=== PATIENT | female | born 1970 | race Caucasian/White ===

== ENCOUNTER 2016-03-11 15:52 | Emergency (ER) | payer OTHER ==
[2016-03-11 16:08] VITALS: BP 161/64; PULSE 83; O2SAT 97
--- NOTE | 2016-03-11 16:20 | ERPHSYRPT ---
- History of Present Illness Time Seen by Provider: 03/11/16 16:15 Source: patient Patient Subjective Stated Complaint: pain and redness to left eye since sat. denies foreign body or trauma Triage Nursing Assessment: ambulated to room. skin w/d, color normal, resp easy. left eye reddened, slight swelling noted. no drainage noted at present time. Physician History: The patient is a 44-year-old female with her complaining of increased tenderness swelling and redness of the inner aspect of her left lower eyelid for 4 days. She has placed warm compresses on it periodically without any relief. She denies any trauma to the eye. Vision is normal. Timing/Duration: day(s) (4) Location: left eye Severity: moderate Apparent Injury: no Associated Symptoms: pain Visual Assistive Devices: None Allergies/Adverse Reactions: No Known Drug Allergies Allergy (Verified 03/11/16 16:04) Home Medications: Fluoxetine HCl [Prozac] 20 mg PO DAILY 03/11/16 [History] Oxycodone HCl/Acetaminophen [Percocet 10-325 mg Tablet] 1 each PO Q4-6HPRN PRN 03/11/16 [History] Hx Tetanus, Diphtheria Vaccination/Date Given: No Hx Influenza Vaccination/Date Given: No Hx Pneumococcal Vaccination/Date Given: Yes (2010) - Review of Systems Constitutional: No Fever, No Chills Eyes: Other (eye lid pain) Ears, Nose, & Throat: No Symptoms Respiratory: No Cough, No Dyspnea Cardiac: No Chest Pain, No Edema, No Syncope Abdominal/Gastrointestinal: No Abdominal Pain, No Nausea, No Vomiting, No Diarrhea Genitourinary Symptoms: No Dysuria Musculoskeletal: No Back Pain, No Neck Pain Skin: No Rash Neurological: No Dizziness, No Focal Weakness, No Sensory Changes Psychological: No Symptoms Endocrine: No Symptoms Hematologic/Lymphatic: No Symptoms Immunological/Allergic: No Symptoms All Other Systems: Reviewed and Negative - Past Medical History Pertinent Past Medical History: Yes Neurological History: Migraines ENT History: No Pertinent History Cardiac History: No Pertinent History Respiratory History: Asthma Endocrine Medical History: No Pertinent History Musculoskeletal History: Fractures GI Medical History: Colitis, Diverticulitis, Gallbladder Disease History: No Pertinent History Psycho-Social History: No Pertinent History Female Reproductive Disorders: Endometriosis, Other Other Medical History: Fx Left foot. Hysterectomy 2008 for abnormal periods et. cysts. - Past Surgical History Past Surgical History: Yes Neuro Surgical History: No Pertinent History Cardiac: No Pertinent History Respiratory: No Pertinent History Gastrointestinal: Appendectomy, Cholecystectomy Genitourinary: Other Musculoskeletal: Orthopedic Surgery Female Surgical History: Hysterectomy Other Surgical History: Stent for kidney stone 7 years ago. LEFT KNEE SURGERY - Social History Smoking Status: Current every day smoker How long have you smoked: 28 years Exposure to second hand smoke: No Drug Use: none Patient Lives Alone: No - Female History Hx Now: No - Nursing Vital Signs Nursing Vital Signs: Initial Vital Signs Temperature 98.9 F Temperature Source Oral Pulse Rate 83 Respiratory Rate 16 Blood Pressure 161/64 Pain Intensity 9 - Physical Exam General Appearance: no apparent distress Vision Acuity Degree Evaluation Phase: Uncorrected Vision Acuity Right Eye: 20/30 Vision Acuity Left Eye: 20/50 Eye Exam: left eye: stye (left lower eye lid) Ears, Nose, Throat Exam: normal ENT inspection Neck Exam: normal inspection Respiratory Exam: normal breath sounds Cardiovascular Exam: regular rate/rhythm Gastrointestinal Exam: soft Extremity Exam: normal inspection Neurologic: alert Skin Exam: normal color SpO2 Interpretation: normal SpO2: 97 Oxygen Delivery: Room Air - Progress Progress: unchanged - Departure Time of Disposition: 16:26 Departure Disposition: Home Clinical Impression: Hordeolum Condition: Stable Critical Care Time: No Additional Instructions: Apply warm compress on and off to left eye for 15 min 4 times a day. The pain from the stye or hordeolum will resolve. If swelling persists, please follow up with an eye doctor. Tylenol and ibuprofen as needed.
== END 2016-03-11 16:35 | disposition home or self-care (01) ==
LOC: ED 15:52
DX: H00.015 Hordeolum externum left lower eyelid (principal)
CPT/HCPCS: 99282

== ENCOUNTER 2016-03-28 09:56 | Day surgery (SDC) | payer OTHER ==
[~2016-03-28 09:56] MED LIST: DIPRIVAN 200 MG/20 ML IV ONE; Kenalog-40 IM ONE; Sensorcaine 0.25% 10 ML IJ ONE
[2016-03-28] MEDS ORDERED: Lactated Ringers 1,000 ML IV ONE (11:24)
[2016-03-28] MEDS ORDERED: Lactated Ringers 1,000 ML IV SCH (11:30)
[2016-03-28 12:01] VITALS: BP 121/73; PULSE 65; O2SAT 99
--- NOTE | 2016-03-28 14:29 | XRAY ---
Indication: Right L2-L5 MBB. Intraoperative fluoroscopy was provided for 9 seconds. Single frontal digital spot image of the lower lumbar spine submitted for interpretation demonstrates posterior spinal needles with the tips projecting over the expected course of the right L2-L5 nerve roots. Correlate with intraoperative findings/report.
--- NOTE | 2016-03-28 16:42 | XRAY ---
9 seconds fluoroscopy time in surgery for right MBB L2-5.
== END 2016-03-28 12:30 | disposition home or self-care (01) ==
LOC: SDC-PAIN 09:56
PROVIDERS: ATTEND Pain Medicine Interventional Pain Medicine
DX: M47.816 Spondylosis without myelopathy or radiculopathy, lumbar region (principal); M54.5 Low back pain; M25.561 Pain in right knee
CPT/HCPCS: 64493; 64494; 72020; 77003; J2704; J3301

== ENCOUNTER 2016-04-11 15:29 | Emergency (ER) | payer OTHER ==
--- NOTE | 2016-04-11 16:44 | XRAY ---
Indication: Fever and cough. Comparison: November 24, 2012. Portable chest remains clear. Heart is not enlarged. Vascularity normal. Bony thorax intact. Impression: Stable nonacute chest.
[2016-04-11 16:53] VITALS: PULSE 66
[2016-04-11] MEDS ORDERED: Sodium Chloride 0.9% 1000 ML 1,000 ML IV STA (17:03)
--- NOTE | 2016-04-11 17:03 | ERPHSYRPT ---
- History of Present Illness Source: patient, family () Patient Subjective Stated Complaint: PT STATES SHE HAS HAD A COUGH X 1 WEEK STATES SHE HAS NO. ENERY AND GETS DIZZY WHEN SHE AMBULATES. PT DENIES FEVER. Triage Nursing Assessment: PT ALERT WARM AND DRY RESP EASY NON LABORED LUNG SOUND CLEAR AND EQUAL BILATERALLY. Physician History: Patient will make a history of cough congestion some intermittent dizziness sore throat. Cough is nonproductive has had intermittent chills and fever weakness and headache. Has not sought medical care until now. 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 Allergies/Adverse Reactions: No Known Drug Allergies Allergy (Verified 03/28/16 12:03) Home Medications: Fluoxetine HCl [Prozac] 40 mg PO DAILY 03/11/16 [History] Oxycodone HCl/Acetaminophen [Percocet 10-325 mg Tablet] 1 each PO Q4-6HPRN PRN 03/11/16 [History] Trazodone HCl 100 mg PO HS 03/28/16 [History] Cyclobenzaprine HCl [Flexeril] 10 mg PO TID PRN PRN 04/03/16 [History] Hx Tetanus, Diphtheria Vaccination/Date Given: No (UNKNOWN) Hx Influenza Vaccination/Date Given: No Hx Pneumococcal Vaccination/Date Given: No Immunizations Up to Date: Yes - Review of Systems Constitutional: Chills, Fatigue, Lethargy, Malaise, Weakness Eyes: No Symptoms Ears, Nose, & Throat: Nose Pain, Nose Congestion, Throat Pain Respiratory: Cough, No Cyanosis, No Dyspnea, No Dyspnea on Exertion (MOSS), No Wheezing Cardiac: No Chest Pain, No Edema Abdominal/Gastrointestinal: No Symptoms Genitourinary Symptoms: No Symptoms Musculoskeletal: Myalgias Skin: No Symptoms Neurological: No Symptoms Psychological: No Symptoms, Memory Loss Hematologic/Lymphatic: No Symptoms Immunological/Allergic: No Symptoms All Other Systems: Reviewed and Negative - Past Medical History Pertinent Past Medical History: Yes Neurological History: Migraines ENT History: No Pertinent History Cardiac History: No Pertinent History Respiratory History: Asthma Endocrine Medical History: No Pertinent History Musculoskeletal History: Fractures GI Medical History: Colitis, Diverticulitis, Gallbladder Disease History: No Pertinent History Psycho-Social History: No Pertinent History Female Reproductive Disorders: Endometriosis, Other Other Medical History: Fx Left foot. Hysterectomy 2008 for abnormal periods et. cysts. - Past Surgical History Past Surgical History: Yes Neuro Surgical History: No Pertinent History Cardiac: No Pertinent History Respiratory: No Pertinent History Gastrointestinal: Appendectomy, Cholecystectomy Genitourinary: Other Musculoskeletal: Orthopedic Surgery Female Surgical History: Hysterectomy Other Surgical History: Stent for kidney stone 7 years ago. LEFT KNEE SURGERY - Social History Smoking Status: Current every day smoker How long have you smoked: 15 YEARS Exposure to second hand smoke: Yes Drug Use: none Patient Lives Alone: No - Female History Hx Last Menstrual Period: HYSTERECTOMY Hx Now: No - Nursing Vital Signs Nursing Vital Signs: Initial Vital Signs Temperature 98.5 F Temperature Source Oral Pulse Rate 66 Respiratory Rate 14 Blood Pressure [Right Arm] 118/74 Pain Intensity 9 - Physical Exam General Appearance: mild distress, alert, anxiety Eye Exam: PERRL/EOMI Ears, Nose, Throat Exam: pharyngeal erythema, other (NASAL MUCOSAL EDEMA, TENDERNESS OVER FRONTAL AND MAXILLARY SINUS AREAS) Neck Exam: normal inspection, non-tender, supple, full range of motion, No lymphadenopathy Respiratory Exam: normal breath sounds, lungs clear, No chest tenderness Cardiovascular Exam: regular rate/rhythm, normal heart sounds, normal peripheral pulses, capillary refill <2 sec Gastrointestinal/Abdomen Exam: soft, normal bowel sounds, No tenderness Pelvic Exam: not done Rectal Exam: deferred Back Exam: normal inspection, normal range of motion, No CVA tenderness Extremity Exam: normal inspection Neurologic Exam: alert, oriented x 3, cooperative Skin Exam: normal color, warm, dry, rash Lymphatic Exam: No adenopathy SpO2 Interpretation: normal SpO2: 96 Oxygen Delivery: Room Air - Radiology Exams Chest X-ray Interpretation: Reviewed by me, Discussed w/ radiologist, Negative Ordered Tests: Active Orders 24 hr Category Date Time Status IV Insertion STAT Care 04/11/16 17:03 Active CHEST 1 VIEW (PORTABLE) Stat Exams 04/11/16 15:51 Completed CULTURE, THROAT Stat Lab 04/11/16 15:54 Received STREP SCREEN-BETA A Stat Lab 04/11/16 15:54 Completed Medication Summary Discontinued Medications Generic Name Dose Route Start Last Admin Trade Name Freq PRN Reason Stop Dose Admin Dexamethasone Sodium Phosphate 10 mg 04/11/16 17:37 04/11/16 17:53 Decadron 10mg Inj. IM 04/11/16 17:38 10 mg STAT ONE Administration Dexamethasone Sodium Phosphate Confirm 04/11/16 17:48 Decadron 10mg Inj. Administered 04/11/16 17:49 Dose 10 mg .ROUTE .STK-MED ONE Sodium Chloride 1,000 mls @ 999 mls/hr 04/11/16 17:03 04/11/16 17:53 Sodium Chloride 0.9% 1000 Ml IV 04/11/16 18:03 Not Given .Q1H1M STA Sodium Chloride Confirm 04/11/16 17:09 Sodium Chloride 0.9% 1000 Ml Administered 04/11/16 17:10 Dose 1,000 mls @ ud .ROUTE .STK-MED ONE Sodium Chloride Confirm 04/11/16 17:48 Sodium Chloride 0.9% 1000 Ml Administered 04/11/16 17:49 Dose 1,000 mls @ ud .ROUTE .STK-MED ONE Lab/Rad Data: Laboratory Results 04/11/16 04/11/16 Range/Units 15:54 15:54 Streptococcus Screen NEGATIVE (Negative) Resp Infection Panel NEGATIVE (Negative) - Progress Progress: re-examined, unchanged Air Movement: good Progress Note: 04/11/16 20:31Patient with upper respiratory tract infection viral syndrome and sinusitis. Treated with Z-Don and recommendations for Mucinex DM rest fluids ibuprofen Tylenol no work for 2 days and follow-up with medical provider if not significantly improved. Negative fluids and respiratory screen. Blood Culture(s) Obtained: No Antibiotics given: No Counseled pt/family regarding: lab results, diagnosis, need for follow-up, rad results - Departure Time of Disposition: 17:39 Departure Disposition: Home Clinical Impression: Viral syndrome, Viral upper respiratory tract infection Sinusitis Qualifiers: Sinusitis location: pansinusitis Chronicity: acute Recurrence: non-recurrent Qualified Code(s): J01.40 - Acute pansinusitis, unspecified Condition: Stable Critical Care Time: No Referrals: ALFREDO CHACON MD [Primary Care Provider] - 04/13/16 Instructions: Cough -- Adult, Viral Upper Respiratory Infection -- Adult, Sinusitis Additional Instructions: Next 36 hours rest as much as possible with no strenuous activity. Forced oral fluids such as Powerade or Gatorade, popsicles Jell-O slush chicken soup and use ibuprofen which is Motrin and Tylenol for discomfort. Recommend switch to Mucinex DM as cough medicine. Also [id number] Zyrtec 10 mg once a day for nasal congestion. No work today or tomorrow if not significantly improved follow-up with medical provider on Saturday. Start antibiotic prescription at once. Prescriptions: Azithromycin [Azithromycin 250 mg Pack] 250 mg PO UD #6 tablet
[2016-04-11] MEDS ORDERED: Sodium Chloride 0.9% 1000 ML 1,000 ML ONE (17:09)
[2016-04-11] MEDS ORDERED: DECADRON 10MG INJ. IM ONE (17:37)
[2016-04-11] MEDS ORDERED: DECADRON 10MG INJ. ONE (17:48)
[2016-04-11] MEDS ORDERED: Sodium Chloride 0.9% 1000 ML 0 ML ONE (17:48)
[2016-04-11 18:06] VITALS: BP 118/74
[2016-04-11 20:28] VITALS: O2SAT 96
== END 2016-04-11 18:24 | disposition home or self-care (01) ==
LOC: ED 15:29
DX: J01.40 Acute pansinusitis, unspecified (principal); B34.9 Viral infection, unspecified; J06.9 Acute upper respiratory infection, unspecified; J32.9 Chronic sinusitis, unspecified
CPT/HCPCS: 71010; 87070; 87430; 87631; 96372; 99283; 99284; J1100

== ENCOUNTER 2016-08-01 14:00 | Day surgery (SDC) | payer OTHER ==
[~2016-08-01 14:00] MED LIST changes: +Lactated Ringers 1,000 ML IV ONE
--- NOTE | 2016-08-01 17:20 | XRAY ---
8 seconds fluoroscopy time in surgery for right side L2-5 MBB.
--- NOTE | 2016-08-03 02:52 | XRAY ---
Indication: Right L2-L5 MBB. Intraoperative fluoroscopy was provided for 8 seconds. Single digital spot image submitted for interpretation demonstrates posterior spinal needles with the tips projected over the expected course of the right L2-L5 nerve roots. Correlate with intraoperative findings/report.
== END 2016-08-01 15:45 | disposition home or self-care (01) ==
LOC: SDC-PAIN 14:00
PROVIDERS: ATTEND Pain Medicine Interventional Pain Medicine
DX: M47.816 Spondylosis without myelopathy or radiculopathy, lumbar region (principal); M54.5 Low back pain; M25.561 Pain in right knee; Z79.891 Long term (current) use of opiate analgesic
CPT/HCPCS: 64493; 64494; 64495; 72020; 77003; J2704; J3301

== ENCOUNTER 2016-09-12 12:18 | Emergency (ER) | payer OTHER ==
[2016-09-12] MEDS ORDERED: Sodium Chloride 0.9% 1000 ML 1,000 ML IV STA ×3 (12:33→14:52)
[2016-09-12] MEDS ORDERED: ANTIVERT 25 MG PO ONE (12:33)
[2016-09-12] MEDS ORDERED: Zofran 4 MG/2 ML VIAL IV ONE (12:49)
[2016-09-12] MEDS ORDERED: Zofran 4 MG/2 ML VIAL ONE (12:50)
[2016-09-12] MEDS ORDERED: Sodium Chloride 0.9% 1000 ML 1,000 ML ONE ×2 (12:51→14:48)
[2016-09-12] MEDS ORDERED: ANTIVERT 25 MG ONE (12:51)
--- NOTE | 2016-09-12 12:55 | ERPHSYRPT ---
- History of Present Illness Time Seen by Provider: 09/12/16 12:45 Source: patient Patient Subjective Stated Complaint: PT REPORTS FELLING VERY DIZZY BEGINNING THIS AM-DENIES FEVER-REPORTS SINUS PROBLEMS FOR GARRETT 1 WK-DENIES N/V-DENIES NUMBNESS OR TINLGING Triage Nursing Assessment: PT PINK WARM ET [id number] EASY ET NONLABORED- REPROTS SINUS DRAINAGE OF NASTY LOOKING YELLOW Physician History: PATIENT COMPLAINS OF PRODUCTIVE COUGH YELLOW SPUTUM ASSOCIATED WITH DIZZINESS TODAY. HAS SINUS PRESSURE, DENIES NASAL DRAINAGE, SORETHROAT, FEVER OR CHILLS. Timing/Duration: day(s) Cough Quality/Degree: moderate, productive cough Possible Cause: occasional episodes Modifying Factors: Improves With: coughing Associated Symptoms: lightheadedness International travel in last 2 weeks: No Allergies/Adverse Reactions: No Known Drug Allergies Allergy (Verified 09/12/16 12:33) Home Medications: Fluoxetine HCl [Prozac] 40 mg PO DAILY 03/11/16 [History] Oxycodone HCl/Acetaminophen [Percocet 10-325 mg Tablet] 1 each PO Q4-6HPRN PRN 03/11/16 [History] Trazodone HCl 100 mg PO HS 03/28/16 [History] Hx Tetanus, Diphtheria Vaccination/Date Given: No Hx Influenza Vaccination/Date Given: No Hx Pneumococcal Vaccination/Date Given: No Immunizations Up to Date: Yes - Review of Systems Constitutional: No Symptoms, No Fever, No Chills Eyes: No Symptoms Ears, Nose, & Throat: No Symptoms Respiratory: No Cough, No Dyspnea Cardiac: No Symptoms, No Chest Pain, No Edema, No Syncope Abdominal/Gastrointestinal: No Symptoms, No Abdominal Pain, No Nausea, No Vomiting, No Diarrhea Genitourinary Symptoms: No Symptoms, No Dysuria Musculoskeletal: No Symptoms, No Back Pain, No Neck Pain Skin: No Rash Neurological: Other (LIGHTHEADEDNESS), No Dizziness, No Focal Weakness, No Sensory Changes Psychological: No Symptoms Endocrine: No Symptoms All Other Systems: Reviewed and Negative - Past Medical History Pertinent Past Medical History: Yes Neurological History: Migraines ENT History: No Pertinent History Cardiac History: No Pertinent History Respiratory History: Asthma Endocrine Medical History: No Pertinent History Musculoskeletal History: Fractures GI Medical History: Colitis, Diverticulitis, Gallbladder Disease History: No Pertinent History Psycho-Social History: No Pertinent History Female Reproductive Disorders: Endometriosis, Other Other Medical History: Fx Left foot. Hysterectomy 2009 for abnormal periods et. cysts. - Past Surgical History Past Surgical History: Yes Neuro Surgical History: No Pertinent History Cardiac: No Pertinent History Respiratory: No Pertinent History Gastrointestinal: Appendectomy, Cholecystectomy Genitourinary: Other Musculoskeletal: Orthopedic Surgery Female Surgical History: Hysterectomy Other Surgical History: Stent for kidney stone 7 years ago. LEFT KNEE SURGERY - Social History Smoking Status: Current every day smoker How long have you smoked: 15 YEARS Exposure to second hand smoke: Yes Drug Use: none Patient Lives Alone: No - Female History Hx Now: No - Nursing Vital Signs Nursing Vital Signs: Initial Vital Signs Temperature 97.8 F Temperature Source Oral Pulse Rate 68 Respiratory Rate 18 Blood Pressure [] 133/75 Pain Intensity 2 - Physical Exam General Appearance: no apparent distress, alert Eye Exam: PERRL/EOMI, eyes nml inspection Ears, Nose, Throat Exam: normal ENT inspection, TMs normal, pharynx normal, moist mucous membranes, other (MULTIPE BUCCAL MUCOSA CANKER SORES) Neck Exam: normal inspection, non-tender, supple, full range of motion Respiratory Exam: normal breath sounds, lungs clear, No respiratory distress Cardiovascular Exam: regular rate/rhythm, normal heart sounds Gastrointestinal/Abdomen Exam: soft, normal bowel sounds (NONTENDER), No tenderness Back Exam: normal inspection, No CVA tenderness, No vertebral tenderness Extremity Exam: normal inspection, normal range of motion Neurologic Exam: alert, oriented x 3, cooperative, normal mood/affect, sensation nml, No motor deficits Skin Exam: normal color, warm, dry, No rash Lymphatic Exam: No adenopathy SpO2 Interpretation: normal SpO2: 100 Oxygen Delivery: Room Air - Course EKG Interpreted by Me: RATE, Sinus Rhythm, NORMAL AXIS - Radiology Exams Chest X-ray Interpretation: Discussed w/ radiologist (NEGATIVE, REVIEW OF LATERAL CHEST RADIOIGRAPH FROM 07/16/16 REVEALS AN 11MM NODULAR DENSITY) Ordered Tests: Active Orders 24 hr Category Date Time Status Personal Lines Underwriter STAT Care 09/12/16 12:33 Active EKG-ER Only STAT Care 09/12/16 12:33 Active Orthostatic Vital Signs STAT Care 09/12/16 12:32 Active CHEST 1 VIEW (PORTABLE) Stat Exams 09/12/16 14:41 Completed BMP Stat Lab 09/12/16 13:15 Completed CBC W DIFF Stat Lab 09/12/16 13:15 Completed CULTURE, THROAT Stat Lab 09/12/16 13:15 Received MAGNESIUM Stat Lab 09/12/16 13:15 Completed STREP SCREEN-BETA A Stat Lab 09/12/16 13:15 Completed UA W/ MICROSCOPIC Stat Lab 09/12/16 14:05 Completed Urine Triage Profile Stat Lab 09/12/16 14:05 Completed Medication Summary Generic Name Dose Route Start Last Admin Trade Name Freq PRN Reason Stop Dose Admin Sodium Chloride 1,000 mls @ 999 mls/hr 09/12/16 14:52 09/12/16 15:06 Sodium Chloride 0.9% 1000 Ml IV 09/12/16 15:52 999 mls/hr .Q1H1M STA Administration Discontinued Medications Generic Name Dose Route Start Last Admin Trade Name Freq PRN Reason Stop Dose Admin Sodium Chloride 1,000 mls @ 500 mls/hr 09/12/16 12:33 09/12/16 13:14 Sodium Chloride 0.9% 1000 Ml IV 09/12/16 14:32 Not Given .Q2H STA Sodium Chloride 1,000 mls @ 999 mls/hr 09/12/16 12:51 09/12/16 13:19 Sodium Chloride 0.9% 1000 Ml IV 09/12/16 13:51 999 mls/hr .Q1H1M STA Administration Sodium Chloride Confirm 09/12/16 12:51 Sodium Chloride 0.9% 1000 Ml Administered 09/12/16 12:52 Dose 1,000 mls @ ud .ROUTE .STK-MED ONE Ceftriaxone Sodium/Dextrose 1 g in 50 mls @ 100 mls/hr 09/12/16 13:49 14:02 Rocephin 1 Gm-D5w 50 Ml Bag IV 09/12/16 14:18 100 mls/hr STAT STA Administration Ceftriaxone Sodium/Dextrose Confirm 09/12/16 13:55 Rocephin 1 Gm-D5w 50 Ml Bag Administered 09/12/16 13:56 Dose 1 g in 50 mls @ ud IV .STK-MED ONE Sodium Chloride Confirm 09/12/16 14:48 Sodium Chloride 0.9% 1000 Ml Administered 09/12/16 14:49 Dose 1,000 mls @ ud .ROUTE .STK-MED ONE Meclizine HCl 25 mg 09/12/16 12:33 09/12/16 13:19 Antivert 25 Mg PO 09/12/16 12:34 25 mg STAT ONE Administration Meclizine HCl Confirm 09/12/16 12:51 Antivert 25 Mg Administered 09/12/16 12:52 Dose 25 mg .ROUTE .STK-MED ONE Ondansetron HCl 4 mg 09/12/16 12:49 09/12/16 13:18 Zofran 4 Mg/2 Ml Vial IV 09/12/16 12:50 Not Given STAT ONE Ondansetron HCl Confirm 09/12/16 12:50 Zofran 4 Mg/2 Ml Vial Administered 09/12/16 12:51 Dose 4 mg .ROUTE .STK-MED ONE Lab/Rad Data: Laboratory Result Diagrams 09/12/16 13:15 09/12/16 13:15 Laboratory Results 09/12/16 09/12/16 09/12/16 Range/Units 14:05 14:05 13:15 WBC (4.0-10.5) K/mm3 RBC (4.1-5.4) M/mm3 Hgb (12.0-16.0) gm/dl Hct (35-47) % MCV (78-100) fl MCH (26-32) pg MCHC (32-36) g/dl RDW (11.5-14.0) % Plt Count (150-450) K/mm3 MPV (6-9.5) fl Gran % (36.0-66.0) % Lymphocytes % (24.0-44.0) % Monocytes % (0.0-12.0) % Eosinophils % (0.00-5.0) % Basophils % (0.0-0.4) % Basophils # (0-0.4) Sodium (136-145) mEq/L Potassium (3.5-5.1) mEq/L Chloride (98-107) mEq/L Carbon Dioxide (21-32) mEq/L Anion Gap (5-15) MEQ/L BUN (9-20) mg/dL Creatinine (0.55-1.30) mg/dl Estimated GFR ML/MIN Glucose (70-110) MG/DL Calcium (8.5-10.1) mg/dL Magnesium (1.8-2.4) mg/dL Ur Collection Type VOID Urine Color YELLOW (YELLOW) Urine Appearance CLEAR (CLEAR) Urine pH 5.0 (5-6) Ur Specific Burt 1.010 (1.005-1.025) Urine Protein NEGATIVE (Negative) Urine Ketones NEGATIVE (NEGATIVE) Urine Blood 250 (0-5) Arias/ul Urine Nitrite NEGATIVE (NEGATIVE) Urine Bilirubin NEGATIVE (NEGATIVE) Urine Urobilinogen NORMAL (0-1) mg/dL Ur Leukocyte Esterase TRACE (NEGATIVE) Urine Microscopic RBC 0-2 (0-2) /HPF Urine Microscopic WBC 2-5 (0-5) /HPF Ur Epithelial Cells FEW (FEW) /HPF Urine Bacteria FEW (NEGATIVE) /HPF Urine Glucose NEGATIVE (NEGATIVE) mg/dL Urine Opiates Level POS. (NEGATIVE) Ur Methadone NEG. (NEGATIVE) Urine Barbiturates NEG. (NEGATIVE) Ur Phencyclidine (PCP) NEG. (NEGATIVE) Urine Amphetamine NEG. (NEGATIVE) U Benzodiazepine Level NEG. (NEGATIVE) Urine Cocaine NEG. (NEGATIVE) Urine Marijuana (THC) NEG. (NEGATIVE) Streptococcus Screen NEGATIVE (Negative) Specimen Received 09/12/16 1405 09/12/16 09/12/16 Range/Units 13:15 13:15 WBC 9.2 (4.0-10.5) K/mm3 RBC 3.95 L (4.1-5.4) M/mm3 Hgb 12.2 (12.0-16.0) gm/dl Hct 35.9 (35-47) % MCV 90.9 (78-100) fl MCH 30.8 (26-32) pg MCHC 34.0 (32-36) g/dl RDW 12.5 (11.5-14.0) % Plt Count 323 (150-450) K/mm3 MPV 9.7 H (6-9.5) fl Gran % 75.0 H (36.0-66.0) % Lymphocytes % 18.8 L (24.0-44.0) % Monocytes % 5.7 (0.0-12.0) % Eosinophils % 0.4 (0.00-5.0) % Basophils % 0.1 (0.0-0.4) % Basophils # 0.01 (0-0.4) Sodium 143 (136-145) mEq/L Potassium 3.1 L (3.5-5.1) mEq/L Chloride 108 H (98-107) mEq/L Carbon Dioxide 22.3 (21-32) mEq/L Anion Gap 16.0 H (5-15) MEQ/L BUN 8 L (9-20) mg/dL Creatinine 0.75 (0.55-1.30) mg/dl Estimated GFR > 60 ML/MIN Glucose 120 H (70-110) MG/DL Calcium 9.6 (8.5-10.1) mg/dL Magnesium 1.7 L (1.8-2.4) mg/dL Ur Collection Type Urine Color (YELLOW) Urine Appearance (CLEAR) Urine pH (5-6) Ur Specific Burt (1.005-1.025) Urine Protein (Negative) Urine Ketones (NEGATIVE) Urine Blood (0-5) Arias/ul Urine Nitrite (NEGATIVE) Urine Bilirubin (NEGATIVE) Urine Urobilinogen (0-1) mg/dL Ur Leukocyte Esterase (NEGATIVE) Urine Microscopic RBC (0-2) /HPF Urine Microscopic WBC (0-5) /HPF Ur Epithelial Cells (FEW) /HPF Urine Bacteria (NEGATIVE) /HPF Urine Glucose (NEGATIVE) mg/dL Urine Opiates Level (NEGATIVE) Ur Methadone (NEGATIVE) Urine Barbiturates (NEGATIVE) Ur Phencyclidine (PCP) (NEGATIVE) Urine Amphetamine (NEGATIVE) U Benzodiazepine Level (NEGATIVE) Urine Cocaine (NEGATIVE) Urine Marijuana (THC) (NEGATIVE) Streptococcus Screen (Negative) Specimen Received - Progress Progress Note: 09/12/16 15:22 PATIENT GIVEN BOLUS NORMAL SALINE 1 LITER/HR X 2, AND ROCEPHIN 1GM IVPB 09/12/16 15:52 Counseled pt/family regarding: lab results, diagnosis, need for follow-up, rad results - Departure Time of Disposition: 16:00 Departure Disposition: Home Clinical Impression: ACUTE BRONCHITIS Condition: Stable Critical Care Time: No Additional Instructions: ANTIBIOTIC CEFTIN 250MG TWICE DAILY FOR 10 DAYS. CONSULT YOUR FAMILY PHYSICIAN FOR EVALUATION IN 1 WEEK. TAKE OVER THE COUNTER COUGH SYRUP FOR COUGHING. Prescriptions: Cefprozil 250 mg PO BID #20 tablet
[2016-09-12 13:34] LABS: BASOPHIL % 0.1 % (0.0-0.4); BLOOD UREA NITROGEN 8 mg/dL (9-20); CHLORIDE 108 mEq/L (98-107); Carbon Dioxide 22.3 mEq/L (21-32); Eosinophil % 0.4 % (0.00-5.0); Glucose 120 MG/DL (70-110); Lymphocytes % 18.8 % (24.0-44.0); MAGNESIUM 1.7 mg/dL (1.8-2.4); Mean Cell Volume 90.9 fl (78-100); Mean Corpuscular Hemoglobin 30.8 pg (26-32); Mean Platelet Volume 9.7 fl (6-9.5); Monocytes % 5.7 % (0.0-12.0); Platelet Count 323 K/mm3 (150-450); Potassium 3.1 mEq/L (3.5-5.1); Red Blood Count 3.95 M/mm3 (4.1-5.4); Red Cell Distribution Width 12.5 % (11.5-14.0); SODIUM 143 mEq/L (136-145); White Blood Count 9.2 K/mm3 (4.0-10.5)
[2016-09-12] MEDS ORDERED: ROCEPHIN 1 Gm-D5w 50 ml Bag** 1 G/50 ML IVPB IV STA (13:49)
[2016-09-12] MEDS ORDERED: ROCEPHIN 1 Gm-D5w 50 ml Bag** 1 G/50 ML IVPB IV ONE (13:55)
[2016-09-12 14:14] LABS: Bilirubin NEGATIVE (NEGATIVE); Blood 250 Ery/ul (0-5); COMPLETE URINE MICROSCOPIC? YES; Collection Type VOID; Glucose NEGATIVE (NEGATIVE); Leukocyte Esterase TRACE (NEGATIVE)
[2016-09-12 14:20] LABS: Bacteria FEW /HPF (NEGATIVE); Epithelial Cells FEW /HPF (FEW)
--- NOTE | 2016-09-12 15:10 | XRAY ---
Exam: AP upright portable chest film from 09/12/2016. Comparison: Two-view chest from 07/16/2016. Indication: Cough, weakness. Findings: The film was obtained in a lordotic projection. The transverse heart size is within normal limits. EKG leads are noted in place. Artifacts from the patient's bra are seen. The transverse heart size is normal. No vascular congestion or pleural effusion is seen. No air space infiltrates or pneumothorax is seen. No acute osseous process is seen. Impression: 1. Lordotic portable chest film revealing no definite air space infiltrate or other acute cardiopulmonary disease. Note: Incidentally, review of the lateral chest radiograph from 07/16/2016 reveals an 11 mm nodular density projected behind the body of the sternum. I cannot definitely see this on the current portable radiograph or the prior PA chest radiograph. Consider further evaluation with a CT of the chest to further evaluate this.
[2016-09-12 15:55] VITALS: BP 124/67; PULSE 81
[2016-09-12 16:00] VITALS: O2SAT 100
== END 2016-09-12 16:12 | disposition home or self-care (01) ==
LOC: ED 12:18
DX: J20.9 Acute bronchitis, unspecified (principal)
CPT/HCPCS: 36415; 71010; 80048; 80307; 81000; 83735; 85025; 87070; 87430; 93005; 93041; 96360; 96361; 96365; 99284; J0696; J2405; A9270-GY

== ENCOUNTER 2017-05-16 16:57 | Emergency (ER) | payer OTHER ==
[2017-05-16] MEDS ORDERED: Norflex 60 MG/2 ML IM ONE (17:37)
[2017-05-16] MEDS ORDERED: TORAdol 30 mg Injection IM ONE (17:37)
[2017-05-16] MEDS ORDERED: Norflex 60 MG/2 ML ONE (17:40)
[2017-05-16] MEDS ORDERED: TORAdol 30 mg Injection ONE (17:40)
--- NOTE | 2017-05-16 17:44 | ERPHSYRPT ---
- History of Present Illness Time Seen by Provider: 05/16/17 17:37 Source: patient, family () Physician History: CC: neck pain Hx: 46 y/o patient of Dr Chacon and Dr Nascimento. She has pain in left posterior lateral neck. No injury. Feels a lump. No sore throat or sores. No fever or chills. She is on ibuprofen. She sees pain clinic. Prior hysterectomy. Severity: severe Allergies/Adverse Reactions: No Known Drug Allergies Allergy (Verified 05/16/17 17:24) Home Medications: Fluoxetine HCl [Prozac] 40 mg PO DAILY 03/11/16 [History] Ergocalciferol (Vitamin D2) [Vitamin D] 50,000 unit PO .UNKNOWN 10/15/16 [ History] Hx Tetanus, Diphtheria Vaccination/Date Given: No Hx Influenza Vaccination/Date Given: No Hx Pneumococcal Vaccination/Date Given: No - Review of Systems Constitutional: No Fever, No Chills Eyes: No Vision Changes Ears, Nose, & Throat: No Ear Discharge, No Nose Congestion, No Throat Pain Abdominal/Gastrointestinal: No Nausea, No Vomiting All Other Systems: Reviewed and Negative - Past Medical History Pertinent Past Medical History: Yes Neurological History: Migraines ENT History: No Pertinent History Cardiac History: No Pertinent History Respiratory History: Asthma Endocrine Medical History: No Pertinent History Musculoskeletal History: Fractures GI Medical History: Colitis, Diverticulitis, Gallbladder Disease History: No Pertinent History Psycho-Social History: No Pertinent History Female Reproductive Disorders: Endometriosis, Other Other Medical History: Fx Left foot. Hysterectomy 2009 for abnormal periods et. cysts. - Past Surgical History Past Surgical History: Yes Neuro Surgical History: No Pertinent History Cardiac: No Pertinent History Respiratory: No Pertinent History Gastrointestinal: Appendectomy, Cholecystectomy Genitourinary: Other Musculoskeletal: Orthopedic Surgery Female Surgical History: Hysterectomy Other Surgical History: Stent for kidney stone 7 years ago. LEFT KNEE SURGERY - Social History Smoking Status: Current every day smoker How long have you smoked: 15 YEARS Exposure to second hand smoke: Yes Drug Use: none Patient Lives Alone: No - Physical Exam General Appearance: alert Eye Exam: PERRL/EOMI Ears, Nose, Throat Exam: pharynx normal, moist mucous membranes Neck Exam: other (left posterior cervical adenitis. No redness. O-P clear. No midline vertebral tenderness. No mastoid tenderness. Normal TM's.) Respiratory Exam: normal breath sounds, lungs clear Cardiovascular Exam: regular rate/rhythm Extremity Exam: normal inspection, normal range of motion Neurologic Exam: alert, oriented x 3, cooperative, water mechanic II-XII nml as tested, sensation nml, No motor deficits Skin Exam: warm, dry, No rash - Course Nursing assessment & vital signs reviewed: Yes Ordered Tests: Medication Summary Discontinued Medications Generic Name Dose Route Start Last Admin Trade Name Leilani PRN Reason Stop Dose Admin Ketorolac Tromethamine 60 mg 05/16/17 17:37 Toradol 30 Mg Injection IM 05/16/17 17:38 STAT ONE Orphenadrine Citrate 60 mg 05/16/17 17:37 Norflex 60 Mg/2 Ml IM 05/16/17 17:38 STAT ONE - Progress Progress Note: 05/16/17 17:43 The patient has tenderness and LAD. No sore or etiology noted. Toradol and norflex given. Advised continue ibuprofen and warm compresses. She sees pain clinic. INSPECT reviewed and had #120 percocet on 04-22-17. stated she takes hydrocodone. Pt told nurse she no long takes pain medications. Imaging not indicated. Advised she follow up with her doctors. Counseled pt/family regarding: diagnosis, need for follow-up - Departure Time of Disposition: 17:45 Departure Disposition: Home Clinical Impression: Neck pain, Cervical lymphadenitis, Chronic pain syndrome Condition: Stable Critical Care Time: No Referrals: ALFREDO CHACON MD [Primary Care Provider] - Instructions: Chronic Pain (DC), Swollen Neck Nodes in Children, Generalized Neck Pain (DC) Additional Instructions: Warm compresses off and on. Continue ibuprofen as directed for pain. Follow up with Dr Nascimento pain clinic. Rx keflex. Rx norflex. No driving and stay with family. Prescriptions: Cephalexin Mh 500 mg [Keflex 500 mg] 1 cap PO QID #28 capsule Orphenadrine Citrate 100 mg [Norflex 100 MG Tablet] 1 tab PO BID #10 tab
[2017-05-16 18:05] VITALS: BP 110/78; PULSE 76; O2SAT 98
== END 2017-05-16 18:11 | disposition home or self-care (01) ==
LOC: ED 16:57
DX: M54.2 Cervicalgia (principal); I88.9 Nonspecific lymphadenitis, unspecified; G89.4 Chronic pain syndrome
CPT/HCPCS: 96372; 99283; J1885; J2360

== ENCOUNTER 2018-04-09 10:14 | Day surgery (SDC) | payer OTHER ==
[2018-04-09] MEDS ORDERED: DIPRIVAN 200 MG/20 ML IV ONE (10:15)
[2018-04-09] MEDS ORDERED: Depo-Medrol 40 MG/ML IM ONE (10:15)
[2018-04-09] MEDS ORDERED: Ketamine HCl 50 MG/ML IJ ONE (10:15)
[2018-04-09] MEDS ORDERED: Sodium Chloride 0.9(Preservative Free) 10 ML IJ ONE (10:15)
[2018-04-09] MEDS ORDERED: Lactated Ringers 1,000 ML IV ONE (12:04)
[2018-04-09] MEDS ORDERED: TORAdol 30 mg Injection ONE (12:23)
--- NOTE | 2018-04-09 15:01 | XRAY ---
Indication: L4-S1 EDUARDO. Intraoperative fluoroscopy was provided for 23 seconds. 2 digital spot images submitted for interpretation demonstrates posterior spinal needle tips projecting over the expected course the right L4 and L5 nerve roots. Small amount of contrast injected for needle tip placement. Correlate with intraoperative findings/report.
--- NOTE | 2018-04-09 15:03 | XRAY ---
Indication: Right trochanter injection. Intraoperative fluoroscopy was provided for 12 seconds. Single digital spot image submitted for interpretation demonstrates needle tip projecting adjacent to the greater trochanter. Small amount of contrast injected for needle tip placement. Correlate with intraoperative findings/report.
--- NOTE | 2018-04-09 15:20 | XRAY ---
12 seconds fluoroscopy time in surgery for right greater trochanter injection.
--- NOTE | 2018-04-09 15:29 | XRAY ---
23 seconds fluoroscopy time in surgery for L4-S1 EDUARDO.
== END 2018-04-09 12:37 | disposition home or self-care (01) ==
LOC: SDC-PAIN 10:14
PROVIDERS: ATTEND Psychiatry & Neurology Pain Medicine
DX: M70.61 Trochanteric bursitis, right hip (principal); M54.16 Radiculopathy, lumbar region; M46.1 Sacroiliitis, not elsewhere classified; Z79.899 Other long term (current) drug therapy
CPT/HCPCS: 20610; 64483; 64484; 72020; 73501; 77002; 77003; J1030; J1885; J2704; Q9966

== ENCOUNTER 2018-06-04 13:47 | Day surgery (SDC) | payer BC ==
[2018-06-04] MEDS ORDERED: DIPRIVAN 200 MG/20 ML IV ONE (13:48)
[2018-06-04] MEDS ORDERED: Depo-Medrol 40 MG/ML IM ONE (13:48)
[2018-06-04] MEDS ORDERED: Marcaine 0.5% SDV 10 ML IJ ONE (13:48)
[2018-06-04] MEDS ORDERED: Ketamine HCl 50 MG/ML IJ ONE (13:48)
[2018-06-04] MEDS ORDERED: MORPHINE SULFATE 10 MG/ML ONE (15:23)
--- NOTE | 2018-06-04 16:44 | XRAY ---
Indication: Right SI joint injection. Intraoperative fluoroscopy was provided for 10 seconds. 2 digital spot images submitted for interpretation demonstrates posterior needle tip projecting over the inferior right SI joint. Correlate with intraoperative findings/report.
--- NOTE | 2018-06-04 16:49 | XRAY ---
10 seconds fluoroscopy time in surgery for right S-I joint injection.
[2018-06-04] MEDS ORDERED: Lactated Ringers 1,000 ML IV ONE (18:06)
== END 2018-06-04 15:35 | disposition home or self-care (01) ==
LOC: SDC-PAIN 13:47
PROVIDERS: ATTEND Psychiatry & Neurology Pain Medicine
DX: M46.1 Sacroiliitis, not elsewhere classified (principal); M47.817 Spondylosis without myelopathy or radiculopathy, lumbosacral region; Z79.899 Other long term (current) drug therapy; M19.90 Unspecified osteoarthritis, unspecified site; G47.30 Sleep apnea, unspecified
CPT/HCPCS: 27096; 72100; 77002; J1030; J2270; J2704; G0260

== ENCOUNTER 2018-07-02 11:27 | Day surgery (SDC) | payer BC ==
[2018-07-02] MEDS ORDERED: Versed 2 MG/2 ML Injection IV ONE (11:28)
[2018-07-02] MEDS ORDERED: Marcaine 0.5% SDV 10 ML IJ ONE (11:28)
[2018-07-02] MEDS ORDERED: DIPRIVAN 200 MG/20 ML IV ONE (11:28)
[2018-07-02] MEDS ORDERED: Depo-Medrol 40 MG/ML IM ONE (11:28)
[2018-07-02] MEDS ORDERED: Ketamine HCl 50 MG/ML IJ ONE (11:28)
[2018-07-02] MEDS ORDERED: MORPHINE SULFATE 10 MG/ML ONE (13:12)
--- NOTE | 2018-07-02 14:41 | XRAY ---
8 seconds of fluoroscopy was used in surgery for a right intra-articular hip injection.
--- NOTE | 2018-07-02 14:41 | XRAY ---
Indication: Right hip injection. Intraoperative fluoroscopy was provided for 8 seconds. Single digital spot image submitted for interpretation demonstrates needle tip just lateral to the right femur neck. Small amount of contrast injected for needle tip placement. Correlate with intraoperative findings/report.
[2018-07-02] MEDS ORDERED: Lactated Ringers 1,000 ML IV ONE (14:56)
== END 2018-07-02 13:27 | disposition home or self-care (01) ==
LOC: SDC-PAIN 11:27
PROVIDERS: ATTEND Psychiatry & Neurology Pain Medicine
DX: M16.11 Unilateral primary osteoarthritis, right hip (principal); G47.30 Sleep apnea, unspecified; F41.9 Anxiety disorder, unspecified; F32.9 Major depressive disorder, single episode, unspecified; Z79.899 Other long term (current) drug therapy
CPT/HCPCS: 20610; 73501; 77002; J1030; J2250; J2270; J2704; Q9966

== ENCOUNTER 2018-12-08 15:48 | Emergency (ER) | payer BC ==
--- NOTE | 2018-12-08 15:54 | ERPHSYRPT ---
- History of Present Illness Time Seen by Provider: 12/08/18 15:54 Source: patient, family Exam Limitations: no limitations Physician History: 47 y/o white female states she was in [place] just walking 3 days ago and then foot began hurting and became swollen. doesnt recall if she tripped or fell. Method of Injury: unknown Occurred: days ago (3) Quality: aching Severity of Pain-Max: moderate Severity of Pain-Current: mild Lower Extremities Pain: foot: left Modifying Factors: Improves With: movement (hurts) Associated Symptoms: other (hurts to bear weight) Allergies/Adverse Reactions: No Known Drug Allergies Allergy (Verified 05/16/17 17:24) Home Medications: Fluoxetine HCl [Prozac] 40 mg PO DAILY 03/11/16 [History] Oxycodone HCl/Acetaminophen [Oxycodon-Acetaminophen 7.5-325] 1 each PO Q6HPRN PRN 06/17/17 [History] Sertraline HCl 50 mg [Zoloft 50 mg Tablet] 50 mg PO DAILY 12/08/18 [History] Hx Tetanus, Diphtheria Vaccination/Date Given: No Hx Influenza Vaccination/Date Given: No Hx Pneumococcal Vaccination/Date Given: No - Review of Systems Constitutional: No Symptoms Eyes: No Symptoms Ears, Nose, & Throat: No Symptoms Respiratory: No Symptoms Cardiac: No Symptoms Abdominal/Gastrointestinal: No Symptoms Genitourinary Symptoms: No Symptoms Musculoskeletal: Injury (left food) Skin: No Symptoms Neurological: No Symptoms Psychological: No Symptoms Endocrine: No Symptoms Hematologic/Lymphatic: No Symptoms Immunological/Allergic: No Symptoms All Other Systems: Reviewed and Negative - Past Medical History Pertinent Past Medical History: Yes Neurological History: Migraines ENT History: No Pertinent History Cardiac History: No Pertinent History Respiratory History: Asthma, Sleep Apnea Endocrine Medical History: No Pertinent History Musculoskeletal History: No Pertinent History GI Medical History: Colitis, Diverticulitis, Gallbladder Disease History: No Pertinent History Psycho-Social History: No Pertinent History Female Reproductive Disorders: Endometriosis, Other Other Medical History: R TKA, prior history of R meniscus and 2 surgeries to repair that. Past internal TENS was placed and removed. - Past Surgical History Past Surgical History: Yes Neuro Surgical History: No Pertinent History Cardiac: No Pertinent History Respiratory: No Pertinent History Gastrointestinal: Appendectomy, Cholecystectomy Genitourinary: Other Musculoskeletal: Orthopedic Surgery Female Surgical History: Hysterectomy Other Surgical History: Stent for kidney stone 7 years ago. LEFT KNEE SURGERY - Social History Smoking Status: Current every day smoker How long have you smoked: 15 YEARS Exposure to second hand smoke: Yes Drug Use: none Patient Lives Alone: No - Nursing Vital Signs Nursing Vital Signs: Initial Vital Signs Pulse Rate 82 12/08/18 16:14 Respiratory Rate 18 12/08/18 16:14 Blood Pressure 152/96 12/08/18 16:14 O2 Sat by Pulse Oximetry 98 12/08/18 16:14 Pain Scale Pain Intensity 8 - Physical Exam General Appearance: no apparent distress, alert, anxiety Eyes, Ears, Nose, Throat Exam: normal ENT inspection, moist mucous membranes Neck Exam: normal inspection, non-tender, supple, full range of motion Cardiovascular/Respiratory Exam: chest non-tender Gastrointestinal/Abdominal Exam: non-tender Back Exam: normal inspection, normal range of motion, No CVA tenderness, No vertebral tenderness Hips Exam: bilateral: non-tender, normal inspection, normal range of motion, no evidence of injury Legs Exam: bilateral leg: non-tender, normal inspection, normal range of motion , no evidence of injury Knees Exam: bilateral knee: non-tender, normal inspection, normal range of motion, no evidence of injury Ankle Exam: bilateral ankle: non-tender, normal inspection, normal range of motion, no evidence of injury Foot Exam: left foot: normal range of motion, pain, soft tissue tenderness Neuro/Tendon Exam: normal sensation, normal motor functions, normal tendon functions, responds to pain, no evidence tendon injury Mental Status Exam: alert, oriented x 3, cooperative Skin Exam: normal color, warm SpO2 Interpretation: normal O2 Delivery: Room Air Ordered Tests: Active Orders 24 hr Category Date Time Status FOOT (MINIMUM 3 VIEWS) Stat Exams 12/08/18 16:21 Completed - Progress Progress: unchanged Progress Note: 12/08/18 16:58 xray left foot-no acute fx or dislocation Counseled pt/family regarding: diagnosis, need for follow-up, rad results - Departure Departure Disposition: Home Clinical Impression: Left foot pain Condition: Stable Critical Care Time: No Referrals: CHRIS GONZALEZ [Primary Care Provider] - Additional Instructions: ice pack to area 3 times daily for 2 days. tylenol and ibuprofen for pain. follow up with primary doctor for persistent symptoms
--- NOTE | 2018-12-08 16:45 | XRAY ---
Indication: Pain following fall. Comparison: None 3 nonweightbearing views of the left foot obtained. No bony, articular, or soft tissue abnormalities.
[2018-12-08 16:48] VITALS: O2SAT 98
[2018-12-08 17:03] VITALS: BP 148/90; PULSE 76
[2018-12-08] MEDS ORDERED: PERCOCET TABLET 5/325MG ONE (17:08)
[2018-12-08] MEDS: PERCOCET TABLET 5/325MG PO STA (17:09)
== END 2018-12-08 17:14 | disposition home or self-care (01) ==
LOC: ED 15:48
DX: M79.672 Pain in left foot (principal); X50.0XXA Overexertion from strenuous movement or load, initial encounter; X50.3XXA Overexertion from repetitive movements, initial encounter; Y93.01 Activity, walking, marching and hiking; Y99.8 Other external cause status
CPT/HCPCS: 73630; 99283; A9270-GY

== ENCOUNTER 2018-12-22 09:25 | Day surgery (SDC) | payer BC ==
--- NOTE | 2018-12-22 08:02 | HP ---
DATE OF SURGERY: 12/22/2018 HISTORY OF PRESENT ILLNESS: The patient is a 48 year-old with severe diarrhea over the past couple of months, generalized cramping, unclear etiology. PAST MEDICAL HISTORY: Chronic pain. She has had some anxiety, depression as well as some asthma. PAST SURGICAL HISTORY: She had hysterectomy in the past. She had left knee surgery, right knee surgery, left ankle surgery and cholecystectomy in the past. MEDICATIONS: Topamax. Ventolin HFA. Prozac. Percocet. ALLERGIES: NKDA. FAMILY HISTORY: Diabetes. Negative for colon cancer. Negative for inflammatory bowel disease. Father with diabetes. Grandmother with leukemia. Grandfather had liver cancer, history of non-Hodgkin's lymphoma. SOCIAL HISTORY: One pack per day smoker, denies alcohol abuse. REVIEW OF SYSTEMS: Fourteen systems reviewed pertinent for asthma. She had history of some migraines in the past. No chest pain or palpitations other systems negative or noncontributory as above and per preadmission questionnaire. PHYSICAL EXAMINATION: GENERAL: No acute distress. HEENT: Sclerae nonicteric. NECK: No JVD. CHEST: Equal excursion, nonlabored breathing. CVS: Regular rate and rhythm. ABDOMEN: Soft. No peritoneal signs. EXTREMITIES: No significant edema. NEURO: Alert, oriented, moving extremities symmetrically. No gross motor deficits noted. RECTAL: Deferred timed to endoscopy exam. IMPRESSION: Change in bowel habits, some generalized abdominal cramping unclear etiology. Need to evaluate for colitis, inflammatory bowel disease or other etiology. I feel she is a candidate for colonoscopy. She was shown the risk sheet, explained the procedure in detail but not limited to bleeding or infection, risk of bowel injury or perforation possibly requiring open procedure, risk of missed or nondiagnosis or incomplete exam possibly requiring barium enema, other studies or procedures, general risk of anesthesia or sedation, risk of bowel prep, possibility inability to diagnose the etiology of her symptoms possibly requiring other studies or procedures. She understands and agrees to the planned procedure, will proceed with outpatient colonoscopy.
[2018-12-22] MEDS ORDERED: Lactated Ringers 1,000 ML IV ONE (09:51)
[2018-12-22] MEDS ORDERED: Lactated Ringers 1,000 ML IV SCH (10:00)
[2018-12-22] MEDS: Zofran 4 MG/2 ML VIAL IV STA ×2 (11:09→11:12)
[2018-12-22] MEDS ORDERED: Versed 2 MG/2 ML Injection IV ONE (11:10)
[2018-12-22] MEDS ORDERED: DIPRIVAN 200 MG/20 ML IV ONE ×3 (11:46→12:06)
[2018-12-22] MEDS ORDERED: Ketamine HCl 50 MG/ML ONE (11:46)
[2018-12-22 13:22] VITALS: O2SAT 100
--- NOTE | 2018-12-22 13:44 | OP ---
SURGERY DATE/TIME: 12/22/2018 1145 PREOPERATIVE DIAGNOSIS: History of change in bowel movements, diarrhea, cramping of unclear etiology, need for colonoscopy for further evaluation to evaluate for colitis or other etiology. POSTOPERATIVE DIAGNOSES: 1) Adequate prep (liquidy semi-solid stool throughout the colon). 2) Small sigmoid polyp. 3) Small raised lesion versus hyperplastic lesion descending colon and rectum. 4) Small internal and external hemorrhoids. 5) Mild diverticulosis. 6) Tortuous colon. PROCEDURES: 1) Colonoscopy to terminal ileum, retrograde ileoscopy. 2) Random ileum biopsy to evaluate for microscopic ileitis. 3) Random colon biopsy to evaluate for microscopic colitis. 4) Hot biopsy removal of small sigmoid colon polyp versus hyperplastic polyp. 5) Hot biopsy removal of small raised lesion versus hyperplastic lesion in the descending colon and rectum. SURGEON: Dr. Daren Alexander. ANESTHESIA: MAC. ESTIMATED BLOOD LOSS: Minimal. INDICATIONS: As noted above. Risks and benefits explained in detail but not limited to and consent obtained. DESCRIPTION OF PROCEDURE AND FINDINGS: The patient is taken to the operating room. MAC anesthesia induced. After official time out and no disagreement with planned procedure, digital rectal exam did not reveal rectal mass. She did have some small internal and external hemorrhoids. Video colonoscope inserted and passed up through the tortuous sigmoid, descending, transverse and ascending colon. With external pressure and two different staff members pressing on the abdomen, positioning on her back the scope was able to reach the cecum, valve and appendiceal orifice visualized. After positioning on her back the scope was able to be passed up the terminal ileum. Retrograde ileoscopy is performed which was grossly unremarkable. Given her change in bowel habits, cramping, diarrhea, some random cold biopsies were obtained to evaluate for microscopic ileitis as there did not appear to be any gross evidence of obvious Crohn's disease. There did not appear to be any evidence of it at this point. Good hemostasis noted. Scope is carefully withdrawn. Prep overall was adequate. There was a large amount of liquidy semi-solid stool throughout the colon this is suction irrigated as clear as possible but did limit the exam for very small lesions. Although prep was adequate I did not miss any large mass or obstructing lesions. Scope was slowly and carefully withdrawn. Random cold biopsy taken to evaluate for microscopic colitis. There is no evidence of any macroscopic colitis. Scope is slowly and carefully withdrawn over the next 8 minutes. There was a very small 1.5 mm raised lesion descending colon removed with hot biopsy forceps with brief bursts of cautery. Good hemostasis noted. Scope pulled back into the sigmoid. A small 1.5 mm to 2 mm early polyp versus hyperplastic polyp was removed with hot biopsy forceps with brief bursts of cautery. Good hemostasis noted. Another little 1.5 mm raised lesion versus hyperplastic lesion in the rectum removed with hot biopsy forceps with brief bursts of cautery. Good hemostasis noted. She did have mild diverticulosis, small internal hemorrhoids. There were no signs of any large polyps, masses or obstructing lesions. Findings discussed with the family out in the waiting area. I will see her back in the office next week.
[2018-12-22 13:51] VITALS: BP 111/67; PULSE 61
== END 2018-12-22 13:55 | disposition home or self-care (01) ==
LOC: SDC 09:25
PROVIDERS: ATTEND Surgery
DX: K57.30 Diverticulosis of large intestine without perforation or abscess without bleeding (principal); K64.4 Residual hemorrhoidal skin tags; K64.8 Other hemorrhoids; D12.5 Benign neoplasm of sigmoid colon
CPT/HCPCS: 88305; J2250; J2405; J2704

== ENCOUNTER 2019-01-07 13:52 | Emergency (ER) | payer BC ==
[2019-01-07] MEDS ORDERED: TYLENOL 325 MG PO ONE (14:03)
[2019-01-07] MEDS ORDERED: Zofran 4 MG/2 ML VIAL IV ONE (14:03)
[2019-01-07] MEDS ORDERED: BENADRYL 50 MG/ML IV ONE (14:03)
[2019-01-07] MEDS ORDERED: TORAdol 30 mg Injection IV ONE (14:03)
[2019-01-07] MEDS ORDERED: Sodium Chloride 0.9% 1000 ML 1,000 ML IV STA (14:03)
--- NOTE | 2019-01-07 14:14 | ERPHSYRPT ---
- History of Present Illness Time Seen by Provider: 01/07/19 13:55 Source: patient Exam Limitations: no limitations Physician History: Patient has had a typical migraine headache for the past three days. Patient tried to go to her primary care provider's office, but they referred her to the emergency department. Timing/Duration: day(s) (3) Quality: throbbing Head Pain Location: frontal Severity of Pain-Max: severe Severity of Pain-Current: severe Recent Head Trauma: frequent headaches Modifying Factors: Improves With: medication, noise. Worsens With: exposure to light Associated Symptoms: sensitive to light, No confusion, No dizziness, No fatigue , No facial pain, No fever/chills, No flushing, No light-headedness, No loss of consciousness, No nasal congestion, No nasal drainage, No neck pain, No numbness in legs/feet, No rash, No sweating, No scotoma, No seizures, No sinus infection, No speech problems, No stiff neck, No trouble walking, No vision changes, No visual disturbance, No weakness Previous symptoms: same symptoms as today, no recent treatment Allergies/Adverse Reactions: No Known Drug Allergies Allergy (Verified 01/07/19 14:12) Home Medications: Oxycodone HCl/Acetaminophen [Oxycodon-Acetaminophen 7.5-325] 1 each PO Q6HPRN PRN 06/17/17 [History] Topiramate [Topamax] 50 mg PO DAILY 12/10/18 [History] Sertraline HCl 50 mg PO BID 12/22/18 [History] Hx Tetanus, Diphtheria Vaccination/Date Given: No Hx Influenza Vaccination/Date Given: No Hx Pneumococcal Vaccination/Date Given: No - Review of Systems Constitutional: No Fever, No Chills, No Fatigue Eyes: Photophobia, No Discharge, No Eye Pain, No Tearing, No Vision Changes Ears, Nose, & Throat: No Ear Pain, No Ear Discharge, No Nose Discharge, No Mouth Pain, No Hoarse Respiratory: No Dyspnea Cardiac: No Edema, No Palpitations, No Syncope Abdominal/Gastrointestinal: Nausea, No Abdominal Pain, No Vomiting, No Hematochezia, No Melena Genitourinary Symptoms: No Dysuria, No Frequency, No Hematuria, No Flank Pain Musculoskeletal: No Arthralgias, No Back Pain, No Neck Pain, No Joint Pain, No Joint Swelling Skin: No Pruritis, No Rash Neurological: Headache, No Focal Weakness, No Lethargy, No Seizure, No Sensory Changes, No Tremors Psychological: No Anxiety Endocrine: No Excessive Sweating Hematologic/Lymphatic: No Easy Bleeding, No Easy Bruising All Other Systems: Reviewed and Negative - Past Medical History Pertinent Past Medical History: Yes Neurological History: Migraines ENT History: No Pertinent History Cardiac History: No Pertinent History Respiratory History: Asthma, Sleep Apnea Endocrine Medical History: No Pertinent History Musculoskeletal History: No Pertinent History GI Medical History: Colitis, Diverticulitis, Gallbladder Disease History: No Pertinent History Psycho-Social History: Depression Female Reproductive Disorders: Endometriosis, Other Other Medical History: R TKA, prior history of R meniscus and 2 surgeries to repair that. Past internal TENS was placed and removed. - Past Surgical History Past Surgical History: Yes Neuro Surgical History: No Pertinent History Cardiac: No Pertinent History Respiratory: No Pertinent History Gastrointestinal: Appendectomy, Cholecystectomy Genitourinary: Other Musculoskeletal: Joint Replacement, Orthopedic Surgery Female Surgical History: Hysterectomy Other Surgical History: Stent for kidney stone 7 years ago. LEFT KNEE SURGERY - Social History Smoking Status: Current every day smoker How long have you smoked: 15 YEARS Exposure to second hand smoke: Yes Drug Use: none Patient Lives Alone: No - Nursing Vital Signs Nursing Vital Signs: Initial Vital Signs Temperature 98.4 F 01/07/19 13:57 Pulse Rate 75 01/07/19 13:57 Blood Pressure 133/89 01/07/19 13:57 O2 Sat by Pulse Oximetry 100 01/07/19 13:57 Pain Scale Pain Intensity 9 - Physical Exam General Appearance: no apparent distress, alert Eye Exam: PERRL/EOMI, eyes nml inspection, No scleral icterus, No pale conjunctivae Ears, Nose, Throat Exam: normal ENT inspection, TMs normal, pharynx normal, moist mucous membranes, No dry mucous membranes, No TM abnormal (R), No TM abnormal (L), No pharyngeal erythema, No tonsillar exudate Neck Exam: normal inspection, non-tender, supple, No full range of motion, No meningismus, No Brudzinski, No Kernig's, No JVD, No limited range of motion, No lymphadenopathy Respiratory Exam: normal breath sounds, lungs clear, airway intact, No chest tenderness, No respiratory distress, No accessory muscle use, No crackles/rales , No rhonchi, No wheezing Cardiovascular Exam: regular rate/rhythm, normal heart sounds, normal peripheral pulses, capillary refill <2 sec Gastrointestinal/Abdominal Exam: soft, normal bowel sounds, No tenderness, No mass, No ecchymosis, No rebound Back Exam: normal inspection, normal range of motion, No CVA tenderness, No vertebral tenderness, No rash Extremity Exam: normal inspection, normal range of motion, pelvis stable Mental Status Exam: alert, oriented x 3, 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 Exam: normal hearing, normal speech, PERRL, tongue midline, No abnormal eye position, No facial asymmetry, No facial droop, No facial paresthesias, No facial weakness, No gaze palsy, No hearing deficit (R), No hearing deficit (L), No tongue deviation to R, No tongue deviation to L Coordination/Gait Exam: normal cerebellar function Motor/Sensory Exam: no motor deficit, no sensory deficit, No sensory deficit, No weak motor strength RUE, No weak motor strength LUE, No weak motor strength RLE, No weak motor strength LLE DTR Exam: ankle (R): 2+, ankle (L): 2+ Skin Exam: normal color, warm, dry, No rash, No petechiae, No jaundice, No cyanosis SpO2 Interpretation: normal O2 Delivery: Room Air - Course Nursing assessment & vital signs reviewed: Yes Ordered Tests: Active Orders 24 hr Category Date Time Status IV Insertion STAT Care 01/07/19 14:03 Active Pulse Oximetry (ED) STAT Care 01/07/19 14:03 Active Medication Summary Discontinued Medications Generic Name Dose Route Start Last Admin Trade Name Leilani PRN Reason Stop Dose Admin Acetaminophen 975 mg 01/07/19 14:03 01/07/19 15:12 Tylenol 325 Mg PO 01/07/19 14:04 975 mg STAT ONE Administration Acetaminophen Confirm 01/07/19 15:01 Tylenol 325 Mg Administered 01/07/19 15:02 Dose 975 mg .ROUTE .STK-MED ONE Diphenhydramine HCl 50 mg 01/07/19 14:03 01/07/19 15:06 Benadryl 50 Mg/Ml IV 01/07/19 14:04 50 mg STAT ONE Administration Diphenhydramine HCl Confirm 01/07/19 15:00 Benadryl 50 Mg/Ml Administered 01/07/19 15:01 Dose 50 mg .ROUTE .STK-MED ONE Hydromorphone HCl 2 mg 01/07/19 15:53 01/07/19 15:59 Hydromorphone 1 Mg/Ml Ampule IV 01/07/19 15:54 2 mg STAT ONE Administration Hydromorphone HCl Confirm 01/07/19 15:57 Hydromorphone 1 Mg/Ml Ampule Administered 01/07/19 15:58 Dose 2 mg .ROUTE .STK-MED ONE Sodium Chloride 1,000 mls @ 999 mls/hr 01/07/19 14:03 01/07/19 16:05 Sodium Chloride 0.9% 1000 Ml IV 01/07/19 15:03 Infused .Q1H1M STA Infusion Sodium Chloride Confirm 01/07/19 15:01 Sodium Chloride 0.9% 1000 Ml Administered 01/07/19 15:02 Dose 1,000 mls @ ud .ROUTE .STK-MED ONE Ketorolac Tromethamine 30 mg 01/07/19 14:03 01/07/19 15:06 Toradol 30 Mg Injection IV 01/07/19 14:04 30 mg STAT ONE Administration Ketorolac Tromethamine Confirm 01/07/19 15:00 Toradol 30 Mg Injection Administered 01/07/19 15:01 Dose 30 mg .ROUTE .STK-MED ONE Ondansetron HCl 4 mg 01/07/19 14:03 01/07/19 15:05 Zofran 4 Mg/2 Ml Vial IV 01/07/19 14:04 4 mg STAT ONE Administration Ondansetron HCl Confirm 01/07/19 15:00 Zofran 4 Mg/2 Ml Vial Administered 01/07/19 15:01 Dose 4 mg .ROUTE .STK-MED ONE - Progress Progress: improved Air Movement: good Progress Note: 01/07/19 15:54 Patient states her pain has not improved at all with the medications and fluids given. Patient will be given Dilaudid 2mg IV times one. 01/07/19 16:59 Patient's headache pain is significantly improved. No focal neurologic deficits. Supple neck with no rashes. Blood Culture(s) Obtained: No Antibiotics given: No Counseled pt/family regarding: diagnosis, need for follow-up - Departure Departure Disposition: Home Clinical Impression: Migraine headache Qualifiers: Migraine type: without aura Status migrainosus presence: with status migrainosus Intractability: intractable Qualified Code(s): G43.011 - Migraine without aura, intractable, with status migrainosus Condition: Good Critical Care Time: No Referrals: CHRIS GONZALEZ [Primary Care Provider] - 01/08/19 Instructions: Headache, Adult (DC) Additional Instructions: Return immediately back to the emergency department if any worse headache, neck pain that is new, new fever, new skin rashes, uncontrollable vomiting, or any other concerning signs or symptoms that were not present at today's emergency department visit for immediate reevaluation in the emergency department. Forms: Work/School Release Form
[2019-01-07] MEDS ORDERED: BENADRYL 50 MG/ML ONE (15:00)
[2019-01-07] MEDS ORDERED: TORAdol 30 mg Injection ONE (15:00)
[2019-01-07] MEDS ORDERED: Zofran 4 MG/2 ML VIAL ONE (15:00)
[2019-01-07] MEDS ORDERED: TYLENOL 325 MG ONE (15:01)
[2019-01-07] MEDS ORDERED: Sodium Chloride 0.9% 1000 ML 1,000 ML ONE (15:01)
[2019-01-07 15:32] VITALS: PULSE 70
[2019-01-07] MEDS ORDERED: Hydromorphone 1 mg/ml Ampule IV ONE (15:53)
[2019-01-07] MEDS ORDERED: Hydromorphone 1 mg/ml Ampule ONE (15:57)
[2019-01-07 16:51] VITALS: BP 118/74; O2SAT 99
== END 2019-01-07 17:09 | disposition home or self-care (01) ==
LOC: ED 13:52
DX: G43.011 Migraine without aura, intractable, with status migrainosus (principal)
CPT/HCPCS: 36000; 94760; 96360; 96374; 96375; 99284; J1170; J1200; J1885; J2405; A9270-GY

== ENCOUNTER 2019-03-26 17:00 | Emergency (ER) | payer BC ==
[2019-03-26] MEDS ORDERED: Inapsine 5 MG/2 ML IV ONE (17:40)
[2019-03-26] MEDS ORDERED: BENADRYL 50 MG/ML IV ONE (17:40)
[2019-03-26] MEDS ORDERED: TYLENOL 325 MG PO ONE (17:40)
[2019-03-26] MEDS ORDERED: TORAdol 30 mg Injection IV ONE (17:40)
[2019-03-26] MEDS ORDERED: solu-MEDROL 125 MG IV ONE (17:40)
[2019-03-26] MEDS ORDERED: Sodium Chloride 0.9% 1000 ML 1,000 ML IV STA (17:40)
--- NOTE | 2019-03-26 17:58 | ERPHSYRPT ---
- History of Present Illness Time Seen by Provider: 03/26/19 17:11 Source: patient, family Exam Limitations: no limitations Patient Subjective Stated Complaint: Numbness, migraines Triage Nursing Assessment: Patient ambulated back to ED and transferred self to bed. Patient complains of left sided sharp/stabbing headache that has increased since yesterday. Patient states pain is 9/10. Patient states she has been dealing with migraines for the past few years and sees a neurologist. She called neurologist and was told to come to ED for evaluation. Patient complains of tingling and numbness with migraine. Physician History: Location: left side of head Quality: sharp Radiation: behind left eye Severity: moderate Duration: 2-3 days Timing: gradual, not thunder clap Modifying factors/associated signs and symptoms: none tried, h/o migraines, sees a migraine specialist next week Allergies/Adverse Reactions: No Known Drug Allergies Allergy (Verified 03/26/19 17:19) Home Medications: Oxycodone HCl/Acetaminophen [Oxycodon-Acetaminophen 7.5-325] 1 each PO Q6HPRN PRN 06/17/17 [History] Topiramate [Topamax] 50 mg PO DAILY 12/10/18 [History] Sertraline HCl 50 mg PO BID 12/22/18 [History] Hx Tetanus, Diphtheria Vaccination/Date Given: No Hx Influenza Vaccination/Date Given: No Hx Pneumococcal Vaccination/Date Given: No Immunizations Up to Date: Yes - Review of Systems Constitutional: No Fever, No Chills Eyes: No Symptoms Ears, Nose, & Throat: No Symptoms Respiratory: No Cough, No Dyspnea Cardiac: No Chest Pain, No Edema, No Syncope Abdominal/Gastrointestinal: No Abdominal Pain, No Nausea, No Vomiting, No Diarrhea Genitourinary Symptoms: No Dysuria Musculoskeletal: No Back Pain, No Neck Pain Skin: No Rash Neurological: Headache, Parasthesia, No Dizziness, No Focal Weakness, No Sensory Changes Psychological: No Symptoms Endocrine: No Symptoms All Other Systems: Reviewed and Negative - Past Medical History Pertinent Past Medical History: Yes Neurological History: Migraines ENT History: No Pertinent History Cardiac History: No Pertinent History Respiratory History: Asthma, Sleep Apnea Endocrine Medical History: No Pertinent History Musculoskeletal History: No Pertinent History GI Medical History: Colitis, Diverticulitis, Gallbladder Disease History: No Pertinent History Psycho-Social History: Depression Female Reproductive Disorders: Endometriosis, Other Other Medical History: R TKA, prior history of R meniscus and 2 surgeries to repair that. Past internal TENS was placed and removed. - Past Surgical History Past Surgical History: Yes Neuro Surgical History: No Pertinent History Cardiac: No Pertinent History Respiratory: No Pertinent History Gastrointestinal: Appendectomy, Cholecystectomy Genitourinary: Other Musculoskeletal: Joint Replacement, Orthopedic Surgery Female Surgical History: Hysterectomy Other Surgical History: Stent for kidney stone 7 years ago. LEFT KNEE SURGERY - Social History Smoking Status: Current every day smoker How long have you smoked: years Exposure to second hand smoke: No Drug Use: none Patient Lives Alone: No - Female History Hx Last Menstrual Period: hysterectomy Hx Now: No - Nursing Vital Signs Nursing Vital Signs: Initial Vital Signs Temperature 98.2 F 03/26/19 17:20 Pulse Rate 75 03/26/19 17:20 Respiratory Rate 18 03/26/19 17:20 Blood Pressure 120/90 03/26/19 17:20 O2 Sat by Pulse Oximetry 100 03/26/19 17:20 Pain Scale Pain Intensity 9 - Physical Exam General Appearance: no apparent distress Eye Exam: PERRL/EOMI Ears, Nose, Throat Exam: normal ENT inspection, moist mucous membranes Neck Exam: normal inspection, supple, full range of motion, No meningismus Respiratory Exam: normal breath sounds, lungs clear Cardiovascular Exam: regular rate/rhythm, normal heart sounds Gastrointestinal/Abdominal Exam: soft, No tenderness, No distention Back Exam: normal inspection, normal range of motion Mental Status Exam: alert, 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 Speech: clear and fluent with good repetition, comprehension, and naming. Cranial nerves: CN II: Visual lofton are full to confrontation. PERRLA CN III, IV, : EOMI, no nystagmus, no ptosis CN V: Facial sensation is intact to touch in all 3 divisions bilaterally. CN VII: Face is symmetric with normal eye closure and smile. CN VII: Hearing is normal to rubbing fingers CN IX, X: Palate elevates symmetrically. Phonation is normal. CN XI: Head turning and shoulder shrug are intact CN XII: Tongue is midline with normal movements and no atrophy. Motor: There is no pronator drift of out-stretched arms. Muscle bulk and tone are normal. Strength is full bilaterally. Reflexes: Reflexes are 2+ and symmetric at the biceps, triceps, knees, and ankles. Plantar responses are flexor. Sensory: Light touch sense are intact in bilateral upper and lower extremities. There is no sign of neglect. Coordination: Rapid alternating movements are intact. There is no dysmetria on [id number] and [id number]. There are no abnormal or extraneous movements. Romberg is absent. Gait/Stance: Posture is normal. Gait is steady with normal steps, base, arm swing, and turning. Heel and toe walking are normal. Tandem gait is normal. No obvious deformity, sensation intact, 2+ capillary refill, 2 point tactile discrimination intact. 5 out of 5 strength. Full range of motion without pain. Compartments are soft, nontender. Overlying skin shows no tenting, bruising, ecchymosis. Ordered Tests: Active Orders 24 hr Category Date Time Status IV Insertion STAT Care 03/26/19 17:40 Active HEAD WITHOUT CONTRAST [CT] Stat Exams 03/26/19 17:40 Taken CBC W DIFF Stat Lab 03/26/19 18:58 Completed CMP Stat Lab 03/26/19 18:30 Completed UA W/RFX UR CULTURE Stat Lab 03/26/19 18:20 Ordered Medication Summary Discontinued Medications Generic Name Dose Route Start Last Admin Trade Name Gilbertq PRN Reason Stop Dose Admin Acetaminophen 975 mg 03/26/19 17:40 03/26/19 18:40 Tylenol 325 Mg PO 03/26/19 17:41 975 mg STAT ONE Administration Acetaminophen Confirm 03/26/19 18:24 Tylenol 325 Mg Administered 03/26/19 18:25 Dose 975 mg .ROUTE .STK-MED ONE Diphenhydramine HCl 50 mg 03/26/19 17:40 03/26/19 18:38 Benadryl 50 Mg/Ml IV 03/26/19 17:41 50 mg STAT ONE Administration Diphenhydramine HCl Confirm 03/26/19 18:23 Benadryl 50 Mg/Ml Administered 03/26/19 18:24 Dose 50 mg .ROUTE .STK-MED ONE Droperidol 1.25 mg 03/26/19 17:40 03/26/19 18:39 Inapsine 5 Mg/2 Ml IV 03/26/19 17:41 1.25 mg STAT ONE Administration Droperidol Confirm 03/26/19 18:23 Inapsine 5 Mg/2 Ml Administered 03/26/19 18:24 Dose 5 mg .ROUTE .STK-MED ONE Sodium Chloride 1,000 mls @ 999 mls/hr 03/26/19 17:40 03/26/19 18:38 Sodium Chloride 0.9% 1000 Ml IV 03/26/19 18:40 999 mls/hr .Q1H1M STA Administration Sodium Chloride Confirm 03/26/19 18:24 Sodium Chloride 0.9% 1000 Ml Administered 03/26/19 18:25 Dose 1,000 mls @ ud .ROUTE .STK-MED ONE Ketorolac Tromethamine 30 mg 03/26/19 17:40 03/26/19 18:39 Toradol 30 Mg Injection IV 03/26/19 17:41 30 mg STAT ONE Administration Ketorolac Tromethamine Confirm 03/26/19 18:23 Toradol 30 Mg Injection Administered 03/26/19 18:24 Dose 30 mg .ROUTE .STK-MED ONE Methylprednisolone Sodium Succinate 125 mg 03/26/19 17:40 03/26/19 18:39 Solu-Medrol 125 Mg IV 03/26/19 17:41 125 mg STAT ONE Administration Methylprednisolone Sodium Succinate Confirm 03/26/19 18:24 Solu-Medrol 125 Mg Administered 03/26/19 18:25 Dose 125 mg .ROUTE .STK-MED ONE Lab/Rad Data: Laboratory Result Diagrams 03/26/19 18:58 03/26/19 18:30 Laboratory Results 03/26/19 03/26/19 Range/Units 18:58 18:30 WBC 9.4 (4.0-10.5) K/mm3 RBC 3.76 L (4.1-5.4) M/mm3 Hgb 12.3 (12.0-16.0) gm/dl Hct 35.8 (35-47) % MCV 95.2 (78-100) fl MCH 32.7 H (26-32) pg MCHC 34.4 (32-36) g/dl RDW 12.8 (11.5-14.0) % Plt Count 339 (150-450) K/mm3 MPV 9.8 (7.5-11.0) fl Gran % 56.6 (36.0-66.0) % Eos # (Auto) 0.10 (0-0.5) Absolute Lymphs (auto) 3.16 (1.0-4.6) Absolute Monos (auto) 0.78 (0.0-1.3) Lymphocytes % 33.8 (24.0-44.0) % Monocytes % 8.3 (0.0-12.0) % Eosinophils % 1.1 (0.00-5.0) % Basophils % 0.2 (0.0-0.4) % Absolute Granulocytes 5.30 (1.4-6.9) Basophils # 0.02 (0-0.4) Sodium 144 (137-145) mmol/L Potassium 3.3 L (3.5-5.1) mmol/L Chloride 115 H (98-107) mmol/L Carbon Dioxide 17 L (22-30) mmol/L Anion Gap 15.5 H (5-15) MEQ/L BUN 15 (7-17) mg/dL Creatinine 0.56 (0.52-1.04) mg/dL Estimated GFR > 60.0 ML/MIN Glucose 82 (74-106) mg/dL Calcium 9.7 (8.4-10.2) mg/dL Total Bilirubin 0.40 (0.2-1.3) mg/dL AST 23 (14-36) U/L ALT 12 (0-35) U/L Alkaline Phosphatase 118 (38-126) U/L Serum Total Protein 8.2 (6.3-8.2) g/dL Albumin 4.5 (3.5-5.0) g/dL - Progress Progress: improved Air Movement: good Progress Note: 03/26/19 17:57 We will obtain basic labs, migraine cocktail, head CT. Normal neurological exam. 03/26/19 19:[address] normal. Patient feeling improved and making urine. We will discharge patient home at this point in time. They will return for new or different symptoms. Counseled pt/family regarding: lab results, diagnosis, need for follow-up - Departure Departure Disposition: Home Clinical Impression: Migraine Condition: Stable Critical Care Time: No Referrals: CHRIS GONZALEZ [Primary Care Provider] - Instructions: Paresthesias (DC)
[2019-03-26] MEDS ORDERED: Inapsine 5 MG/2 ML ONE (18:23)
[2019-03-26] MEDS ORDERED: BENADRYL 50 MG/ML ONE (18:23)
[2019-03-26] MEDS ORDERED: TORAdol 30 mg Injection ONE (18:23)
[2019-03-26] MEDS ORDERED: solu-MEDROL 125 MG ONE (18:24)
[2019-03-26] MEDS ORDERED: TYLENOL 325 MG ONE (18:24)
[2019-03-26] MEDS ORDERED: Sodium Chloride 0.9% 1000 ML 1,000 ML ONE (18:24)
[2019-03-26 18:58] LABS: BASOPHIL % 0.2 % (0.0-0.4); Basophil (Absolute #) 0.02 (0-0.4); Eosinophil % 1.1 % (0.00-5.0); Hematocrit 35.8 % (35-47); Hemoglobin 12.3 gm/dl (12.0-16.0); Lymphocyte (Absolute #) 3.16 (1.0-4.6); Lymphocytes % 33.8 % (24.0-44.0); Mean Cell Volume 95.2 fl (78-100); Mean Corpuscular Hemoglobin 32.7 pg (26-32); Mean Corpuscular Hgb Concent. 34.4 g/dl (32-36); Mean Platelet Volume 9.8 fl (7.5-11.0); Monocyte (Absolute #) 0.78 (0.0-1.3); Monocytes % 8.3 % (0.0-12.0); Neutrophil % 56.6 % (36.0-66.0); Platelet Count 339 K/mm3 (150-450); Red Blood Count 3.76 M/mm3 (4.1-5.4); Red Cell Distribution Width 12.8 % (11.5-14.0); White Blood Count 9.4 K/mm3 (4.0-10.5)
[2019-03-26 19:12] LABS: ALBUMIN 4.5 g/dL (3.5-5.0); ALKALINE PHOSPHATASE 118 U/L (38-126); ANION GAP 15.5 MEQ/L (5-15); BLOOD UREA NITROGEN 15 mg/dL (7-17); CHLORIDE 115 mmol/L (98-107); Calcium 9.7 mg/dL (8.4-10.2); Carbon Dioxide 17 mmol/L (22-30); Creatinine 1 0.56 mg/dL (0.52-1.04); Glucose 82 mg/dL (74-106); Potassium 3.3 mmol/L (3.5-5.1); SGOT/AST 23 U/L (14-36); SGPT/ALT 12 U/L (0-35); SODIUM 144 mmol/L (137-145); Total Protein 8.2 g/dL (6.3-8.2)
[2019-03-26 20:21] VITALS: BP 102/61; PULSE 66; O2SAT 98
--- NOTE | 2019-03-27 08:40 | XRAY ---
Indication: Headache and blurry vision. Multiple contiguous axial images obtained through the head without contrast. Comparison: November 24, 2012. Again normal appearing brain parenchyma, ventricles, and bony calvarium. Visualized paranasal sinuses and mastoid air cells are clear. Impression: Continued normal CT head without contrast exam.
== END 2019-03-26 20:22 | disposition home or self-care (01) ==
LOC: ED 17:00
DX: G43.909 Migraine, unspecified, not intractable, without status migrainosus (principal)
CPT/HCPCS: 36000; 36415; 70450; 80053; 85025; 96374; 96375; 99284; J1200; J1885; J2930; A9270-GY

== ENCOUNTER 2019-05-14 18:59 | Emergency (ER) | payer BC ==
[2019-05-14 19:09] VITALS: O2SAT 100
[2019-05-14] MEDS ORDERED: TORAdol 30 mg Injection IV ONE (19:23)
[2019-05-14] MEDS ORDERED: TYLENOL 325 MG PO ONE (19:23)
[2019-05-14] MEDS ORDERED: BENADRYL 50 MG/ML IV ONE (19:23)
[2019-05-14] MEDS ORDERED: Inapsine 5 MG/2 ML IV ONE (19:23)
[2019-05-14] MEDS ORDERED: Sodium Chloride 0.9% 1000 ML 1,000 ML IV STA (19:23)
[2019-05-14] MEDS ORDERED: BENADRYL 50 MG/ML ONE (19:31)
[2019-05-14] MEDS ORDERED: TORAdol 30 mg Injection ONE ×2 (19:31→19:41)
[2019-05-14] MEDS ORDERED: Inapsine 5 MG/2 ML ONE (19:31)
[2019-05-14] MEDS ORDERED: TYLENOL 325 MG ONE (19:32)
[2019-05-14] MEDS ORDERED: Sodium Chloride 0.9% 1000 ML 1,000 ML ONE (19:32)
[2019-05-14 20:01] LABS: Absolute Neutrophil Ct (ANC) 9.04 (1.4-6.9); BASOPHIL % 0.2 % (0.0-0.4); Basophil (Absolute #) 0.03 (0-0.4); Eosinophil % 0.4 % (0.00-5.0); Eosinophil (Absolute #) 0.06 (0-0.5); Hematocrit 38.8 % (35-47); Hemoglobin 13.5 gm/dl (12.0-16.0); Lymphocyte (Absolute #) 3.46 (1.0-4.6); Lymphocytes % 25.6 % (24.0-44.0); Mean Cell Volume 92.8 fl (78-100); Mean Corpuscular Hemoglobin 32.3 pg (26-32); Mean Corpuscular Hgb Concent. 34.8 g/dl (32-36); Mean Platelet Volume 9.2 fl (7.5-11.0); Monocyte (Absolute #) 0.94 (0.0-1.3); Monocytes % 6.9 % (0.0-12.0); Neutrophil % 66.9 % (36.0-66.0); Platelet Count 369 K/mm3 (150-450); Red Blood Count 4.18 M/mm3 (4.1-5.4); Red Cell Distribution Width 13.2 % (11.5-14.0); White Blood Count 13.5 K/mm3 (4.0-10.5)
[2019-05-14 20:14] LABS: ALBUMIN 4.3 g/dL (3.5-5.0); ALKALINE PHOSPHATASE 122 U/L (38-126); ANION GAP 13.3 MEQ/L (5-15); BLOOD UREA NITROGEN 12 mg/dL (7-17); CHLORIDE 114 mmol/L (98-107); Calcium 10.1 mg/dL (8.4-10.2); Carbon Dioxide 18 mmol/L (22-30); Creatinine 1 0.53 mg/dL (0.52-1.04); Glucose 94 mg/dL (74-106); Potassium 3.4 mmol/L (3.5-5.1); SGOT/AST 21 U/L (14-36); SGPT/ALT 17 U/L (0-35); SODIUM 142 mmol/L (137-145); Total Protein 7.9 g/dL (6.3-8.2)
--- NOTE | 2019-05-14 20:17 | ERPHSYRPT ---
- History of Present Illness Time Seen by Provider: 05/14/19 19:11 Source: patient Exam Limitations: no limitations Patient Subjective Stated Complaint: pt c/o migraine Triage Nursing Assessment: pt started with headache on 05/10/11 which has progressed to full blown migraine. Pt c/o pain to left side of head, has tingling to left side of face and left eye droops. Pt has been under alot of stress due to mother being in hospital with recent surgery for 2 brain aneurysms and she and her sister got into an argument today at the hospital. Pt sees Dr. Gregorio with [facility] in [place]. Physician History: Patient is here for left-sided headache. History of migraines. No falls no trauma. Long history of migraines. Nothing new or different about this headache. Emotionally brought on. Location: left face Quality: sharp Radiation: none Severity: moderate Duration: today Timing: gradual Modifying factors/associated signs and symptoms: no falls or trauma Allergies/Adverse Reactions: No Known Drug Allergies Allergy (Verified 03/26/19 17:19) Home Medications: Oxycodone HCl/Acetaminophen [Oxycodon-Acetaminophen 7.5-325] 1 each PO Q6HPRN PRN 06/17/17 [History] Topiramate [Topamax] 125 mg PO BID 12/10/18 [History] Sertraline HCl 50 mg PO BID 12/22/18 [History] Ubrogepant [Ubrelvy] 50 mg PO DAILY PRN PRN 05/14/19 [History] Hx Tetanus, Diphtheria Vaccination/Date Given: Yes Hx Influenza Vaccination/Date Given: No Hx Pneumococcal Vaccination/Date Given: No Immunizations Up to Date: No - Review of Systems Constitutional: No Fever, No Chills Eyes: No Symptoms Ears, Nose, & Throat: No Symptoms Respiratory: No Cough, No Dyspnea Cardiac: No Chest Pain, No Edema, No Syncope Abdominal/Gastrointestinal: No Abdominal Pain, No Nausea, No Vomiting, No Diarrhea Genitourinary Symptoms: No Dysuria Musculoskeletal: No Back Pain, No Neck Pain Skin: No Rash Neurological: Headache, No Dizziness, No Focal Weakness, No Sensory Changes Psychological: No Symptoms Endocrine: No Symptoms All Other Systems: Reviewed and Negative - Past Medical History Pertinent Past Medical History: Yes Neurological History: Migraines ENT History: No Pertinent History Cardiac History: No Pertinent History Respiratory History: Asthma, Sleep Apnea Endocrine Medical History: No Pertinent History Musculoskeletal History: No Pertinent History GI Medical History: Colitis, Diverticulitis, Gallbladder Disease History: No Pertinent History Psycho-Social History: Depression Female Reproductive Disorders: Endometriosis, Other Other Medical History: R TKA, prior history of R meniscus and 2 surgeries to repair that. Past internal TENS was placed and removed. - Past Surgical History Past Surgical History: Yes Neuro Surgical History: No Pertinent History Cardiac: No Pertinent History Respiratory: No Pertinent History Gastrointestinal: Appendectomy, Cholecystectomy Genitourinary: Other Musculoskeletal: Joint Replacement, Orthopedic Surgery Female Surgical History: Hysterectomy Other Surgical History: Stent for kidney stone 7 years ago. LEFT KNEE SURGERY - Social History Smoking Status: Current every day smoker How long have you smoked: 32 Exposure to second hand smoke: Yes Drug Use: none Patient Lives Alone: No - Female History Hx Now: No - Nursing Vital Signs Nursing Vital Signs: Initial Vital Signs Temperature 98.7 F 05/14/19 19:07 Pulse Rate 80 05/14/19 19:07 Respiratory Rate 17 05/14/19 19:07 Blood Pressure 120/80 05/14/19 19:07 O2 Sat by Pulse Oximetry 100 05/14/19 19:07 Pain Scale Pain Intensity 10 - Physical Exam General Appearance: no apparent distress Eye Exam: PERRL/EOMI Ears, Nose, Throat Exam: normal ENT inspection, moist mucous membranes Neck Exam: normal inspection, supple, full range of motion, No meningismus Respiratory Exam: normal breath sounds, lungs clear Cardiovascular Exam: regular rate/rhythm, normal heart sounds Gastrointestinal/Abdominal Exam: soft, No tenderness, No distention Back Exam: normal inspection, normal range of motion Mental Status Exam: alert, oriented x 3, 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 Muscle bulk and tone are normal. Strength is full bilaterally. Reflexes: Reflexes are 2+ and symmetric at the biceps, triceps, knees, and ankles. Plantar responses are flexor. Sensory: Light touch sense are intact in bilateral upper and lower extremities. There is no sign of neglect. Coordination: Rapid alternating movements are intact. There is no dysmetria on [id number] and [id number]-[id number]. There are no abnormal or extraneous movements. Romberg is absent. Gait/Stance: Posture is normal. Gait is steady with normal steps, base, arm swing, and turning. Heel and toe walking are normal. Tandem gait is normal. No trismus, able to fully extend neck, normal range of motion of neck without pain. Uvula is midline, no swelling of the mouth, noraml oropharynx. No exudate, no signs of meningitis, no floor of mouth swelling, no hot potato voice on exam. No buccal swelling, no gum bleeding, no signs of tooth abscess/infection. No obvious deformity, sensation intact, 2+ capillary refill, 2 point tactile discrimination intact. 5 out of 5 strength. Full range of motion without pain. Compartments are soft, nontender. Overlying skin shows no tenting, bruising, ecchymosis. Ordered Tests: Active Orders 24 hr Category Date Time Status CBC W DIFF Stat Lab 05/14/19 19:59 Completed CMP Stat Lab 05/14/19 19:59 Completed Medication Summary Discontinued Medications Generic Name Dose Route Start Last Admin Trade Name Gilbertq PRN Reason Stop Dose Admin Acetaminophen 975 mg 05/14/19 19:23 05/14/19 20:12 Tylenol 325 Mg PO 05/14/19 19:24 975 mg STAT ONE Administration Acetaminophen Confirm 05/14/19 19:32 Tylenol 325 Mg Administered 05/14/19 19:33 Dose 975 mg .ROUTE .STK-MED ONE Diphenhydramine HCl 25 mg 05/14/19 19:23 05/14/19 20:11 Benadryl 50 Mg/Ml IV 05/14/19 19:24 25 mg STAT ONE Administration Diphenhydramine HCl Confirm 05/14/19 19:31 Benadryl 50 Mg/Ml Administered 05/14/19 19:32 Dose 50 mg .ROUTE .STK-MED ONE Droperidol 1.25 mg 05/14/19 19:23 05/14/19 20:11 Inapsine 5 Mg/2 Ml IV 05/14/19 19:24 1.25 mg STAT ONE Administration Droperidol Confirm 05/14/19 19:31 Inapsine 5 Mg/2 Ml Administered 05/14/19 19:32 Dose 5 mg .ROUTE .STK-MED ONE Sodium Chloride 1,000 mls @ 999 mls/hr 05/14/19 19:23 05/14/19 20:13 Sodium Chloride 0.9% 1000 Ml IV 05/14/19 20:23 999 mls/hr .Q1H1M STA Administration Sodium Chloride Confirm 05/14/19 19:32 Sodium Chloride 0.9% 1000 Ml Administered 05/14/19 19:33 Dose 1,000 mls @ ud .ROUTE .STK-MED ONE Ketorolac Tromethamine 30 mg 05/14/19 19:23 05/14/19 20:08 Toradol 30 Mg Injection IV 05/14/19 19:24 30 mg STAT ONE Administration Ketorolac Tromethamine Confirm 05/14/19 19:31 Toradol 30 Mg Injection Administered 05/14/19 19:32 Dose 30 mg .ROUTE .STK-MED ONE Ketorolac Tromethamine Confirm 05/14/19 19:41 Toradol 30 Mg Injection Administered 05/14/19 19:42 Dose 30 mg .ROUTE .STK-MED ONE Lab/Rad Data: Laboratory Result Diagrams 05/14/19 19:59 05/14/19 19:59 Laboratory Results 05/14/19 05/14/19 Range/Units 19:59 19:59 WBC 13.5 H (4.0-10.5) K/mm3 RBC 4.18 (4.1-5.4) M/mm3 Hgb 13.5 (12.0-16.0) gm/dl Hct 38.8 (35-47) % MCV 92.8 (78-100) fl MCH 32.3 H (26-32) pg MCHC 34.8 (32-36) g/dl RDW 13.2 (11.5-14.0) % Plt Count 369 (150-450) K/mm3 MPV 9.2 (7.5-11.0) fl Gran % 66.9 H (36.0-66.0) % Eos # (Auto) 0.06 (0-0.5) Absolute Lymphs (auto) 3.46 (1.0-4.6) Absolute Monos (auto) 0.94 (0.0-1.3) Lymphocytes % 25.6 (24.0-44.0) % Monocytes % 6.9 (0.0-12.0) % Eosinophils % 0.4 (0.00-5.0) % Basophils % 0.2 (0.0-0.4) % Absolute Granulocytes 9.04 H (1.4-6.9) Basophils # 0.03 (0-0.4) Sodium 142 (137-145) mmol/L Potassium 3.4 L (3.5-5.1) mmol/L Chloride 114 H (98-107) mmol/L Carbon Dioxide 18 L (22-30) mmol/L Anion Gap 13.3 (5-15) MEQ/L BUN 12 (7-17) mg/dL Creatinine 0.53 (0.52-1.04) mg/dL Estimated GFR > 60.0 ML/MIN Glucose 94 (74-106) mg/dL Calcium 10.1 (8.4-10.2) mg/dL Total Bilirubin 0.50 (0.2-1.3) mg/dL AST 21 (14-36) U/L ALT 17 (0-35) U/L Alkaline Phosphatase 122 (38-126) U/L Serum Total Protein 7.9 (6.3-8.2) g/dL Albumin 4.3 (3.5-5.0) g/dL - Progress Progress: improved Air Movement: good Progress Note: 05/14/19 20:17 We will do basic labs, fluids, migraine cocktail. 05/14/19 20:38 Patient feeling improved. Neurological reexam is normal. Lower suspicion for meningitis or other infectious, sinister cause. Will discharge patient home at this point time. Close follow-up with PCP. Return here for new or changing symptoms. - Departure Departure Disposition: Home Clinical Impression: Migraine Condition: Stable Critical Care Time: No Referrals: CHRIS GONZALEZ [Primary Care Provider] - Instructions: Headache, Adult (DC)
[2019-05-14 20:39] VITALS: BP 116/78; PULSE 70
== END 2019-05-14 20:49 | disposition home or self-care (01) ==
LOC: ED 18:59
DX: G43.909 Migraine, unspecified, not intractable, without status migrainosus (principal)
CPT/HCPCS: 36415; 80053; 85025; 96360; 96374; 96375; 99284; J1200; J1885; A9270-GY

== ENCOUNTER 2020-02-09 20:15 | Observation (INO) | payer OTHER ==
[2020-02-09] MEDS ORDERED: Sodium Chloride 0.9% 1000 ML 1,000 ML ONE (20:38)
[2020-02-09] MEDS ORDERED: Zofran 4 MG/2 ML VIAL ONE (20:38)
[2020-02-09] MEDS ORDERED: Sodium Chloride 0.9% 1000 ML 1,000 ML IV STA (21:08)
[2020-02-09] MEDS ORDERED: Zofran 4 MG/2 ML VIAL IV ONE (21:08)
[2020-02-09 21:54] LABS: Absolute Neutrophil Ct (ANC) 6.63 (1.4-6.9); BASOPHIL % 0.2 % (0.0-0.4); Basophil (Absolute #) 0.03 (0-0.4); Eosinophil % 1.6 % (0.00-5.0); Hematocrit 39.1 % (35-47); Hemoglobin 12.7 gm/dl (12.0-16.0); Lymphocyte (Absolute #) 4.17 (1.0-4.6); Lymphocytes % 34.2 % (24.0-44.0); Mean Cell Volume 98.7 fl (78-100); Mean Corpuscular Hemoglobin 32.1 pg (26-32); Mean Corpuscular Hgb Concent. 32.5 g/dl (32-36); Mean Platelet Volume 10.2 fl (7.5-11.0); Monocyte (Absolute #) 1.17 (0.0-1.3); Monocytes % 9.6 % (0.0-12.0); Neutrophil % 54.4 % (36.0-66.0); Platelet Count 285 K/mm3 (150-450); Red Blood Count 3.96 M/mm3 (4.1-5.4); White Blood Count 12.2 K/mm3 (4.0-10.5)
[2020-02-09] MEDS ORDERED: BABY ASPIRIN 81 MG CHEW PO ONE (21:54)
[2020-02-09] MEDS ORDERED: NITRO-BID 2% UD PACKETS TOP ONE (21:55)
--- NOTE | 2020-02-09 22:01 | ERPHSYRPT ---
- History of Present Illness Time Seen by Provider: 02/09/20 20:34 Historian: patient Exam Limitations: no limitations Patient Subjective Stated Complaint: Patient states " I have been having chest pain on and off for last 3 weeks." Triage Nursing Assessment: Patient arrived to ED per self. Patient ambulated to room without difficulty. Gait steady. Patient A/O times 4. Patient able to answer questions without difficulty. Patient stated she has had chest pain on and off for last 3 weeks. Patient states she has felt like someone is sitting on her chest and pain has radiated into left arm but not into back or jaw. Patient stated the pain has not radiated into left arm today but has in past. Apical pulse regular and strong. Bilateral hand wellness trainer strong and equal. Bilateral pupils brisk and reactive to light. + radial and pedal pulses. Cap refill < 3 seconds. Patient denies SOB. No S/S of respiratory distress noted. Patient noted with nausea but no vomiting today, but patient states that she has had nausea and vomiting with episodes in the past. Physician History: Patient is a 49-year-old female presents to our ED with complaints of recurrent intermittent chest pain x3 weeks. Patient not come in initially as she felt the pain may have been heartburn. Patient states the pain tends to radiate down her left arm. Patient is experiencing chest pain at this time however it is not radiating down her left arm. She is occasionally nauseous and short of breath. Patient states today she became diaphoretic with her chest pain. No syncope. No nausea or vomiting. No rash no fever. Patient admits to possible Covid exposure. Patient is a smoker. Patient denies a history of the same. Patient voices no other complaints or concerns at this time. Timing/Duration: week(s) (Next.) Activities at Onset: activity Quality: aching Location: substernal Chest Pain Radiation: arm Severity of Pain-Max: moderate Severity of Pain-Current: mild Modifying Factors: Improves With: nothing Associated Symptoms: diaphoresis Prior Chest Pain/Cardiac Workup: no prior chest pain Nitro Today/Relief: no nitro taken today Aspirin Treatment Today: no aspirin today Allergies/Adverse Reactions: No Known Drug Allergies Allergy (Verified 02/09/20 23:47) Home Medications: Oxycodone HCl/Acetaminophen [Oxycodon-Acetaminophen 7.5-325] 1 each PO Q6HPRN PRN 06/17/17 [History] Topiramate [Topamax] 125 mg PO BID 12/10/18 [History] Sertraline HCl 50 mg PO BID 12/22/18 [History] Ubrogepant [Ubrelvy] 50 mg PO DAILY PRN PRN 05/14/19 [History] Hx Tetanus, Diphtheria Vaccination/Date Given: Yes Hx Influenza Vaccination/Date Given: No Hx Pneumococcal Vaccination/Date Given: No Immunizations Up to Date: Yes Travel Risk - International Travel Have you traveled outside of the country in past 3 weeks: No - Coronavirus Screening Are you exhibiting any of the following symptoms?: Yes Symptoms: Cough: New Onset, Loss of Taste or Smell, Headaches/Body Aches/Fatigue Close contact with a COVID-19 positive Pt in past 14-21 Days: Yes - Review of Systems Constitutional: No Symptoms, No Fever, No Chills Eyes: No Symptoms Ears, Nose, & Throat: No Symptoms Respiratory: No Symptoms, No Cough, No Dyspnea Cardiac: No Symptoms, No Chest Pain, No Edema, No Syncope Abdominal/Gastrointestinal: No Symptoms, No Abdominal Pain, No Nausea, No Vomiting, No Diarrhea Genitourinary Symptoms: No Symptoms, No Dysuria Musculoskeletal: No Symptoms, No Back Pain, No Neck Pain Skin: No Symptoms, No Rash Neurological: No Symptoms, No Dizziness, No Focal Weakness, No Sensory Changes Psychological: No Symptoms Endocrine: No Symptoms Hematologic/Lymphatic: No Symptoms Immunological/Allergic: No Symptoms All Other Systems: Reviewed and Negative - Past Medical History Pertinent Past Medical History: Yes Neurological History: Migraines ENT History: No Pertinent History Cardiac History: No Pertinent History Respiratory History: Asthma, Sleep Apnea Endocrine Medical History: No Pertinent History Musculoskeletal History: No Pertinent History GI Medical History: Colitis, Diverticulitis, Gallbladder Disease History: No Pertinent History Psycho-Social History: Depression Female Reproductive Disorders: Endometriosis, Other Other Medical History: R TKA, prior history of R meniscus and 2 surgeries to repair that. Past internal TENS was placed and removed. - Past Surgical History Past Surgical History: Yes Neuro Surgical History: No Pertinent History Cardiac: No Pertinent History Respiratory: No Pertinent History Gastrointestinal: Appendectomy, Cholecystectomy Genitourinary: Other Musculoskeletal: Joint Replacement, Orthopedic Surgery Female Surgical History: Hysterectomy Other Surgical History: Stent for kidney stone 7 years ago. LEFT KNEE SURGERY - Social History Smoking Status: Current every day smoker How long have you smoked: 25 years Exposure to second hand smoke: Yes Drug Use: none Patient Lives Alone: No - Female History Hx Last Menstrual Period: Hysterectomy Hx Now: No - Nursing Vital Signs Nursing Vital Signs: Initial Vital Signs Temperature 99.3 F 02/09/20 20:34 Pulse Rate 82 02/09/20 20:34 Respiratory Rate 22 02/09/20 20:34 Blood Pressure 134/77 02/09/20 20:34 O2 Sat by Pulse Oximetry 100 02/09/20 20:34 Pain Scale Pain Intensity 5 - Physical Exam General Appearance: no apparent distress, alert Eye Exam: PERRL/EOMI, eyes nml inspection Ears, Nose, Throat Exam: normal ENT inspection, moist mucous membranes Neck Exam: normal inspection, non-tender, supple, full range of motion Respiratory Exam: normal breath sounds, lungs clear, No respiratory distress Cardiovascular Exam: regular rate/rhythm, normal heart sounds Gastrointestinal/Abdomen Exam: soft, No tenderness, No mass Back Exam: normal inspection, No CVA tenderness, No vertebral tenderness Extremity Exam: normal inspection, normal range of motion Neurologic Exam: alert, oriented x 3, cooperative, normal mood/affect, sensation nml, No motor deficits Skin Exam: normal color, warm, dry Lymphatic Exam: No adenopathy SpO2 Interpretation: normal SpO2: 100 O2 Delivery: Room Air - Course Nursing assessment & vital signs reviewed: Yes EKG Interpreted by Me: RATE (76), Sinus Rhythm, NORMAL AXIS, NORMAL INTERVALS - Radiology Exams Chest X-ray Interpretation: Interpreted by me (No infiltrate no consolidation no pneumothorax. No pleural effusion. Normal bony thorax. Negative chest x-ray.) Ordered Tests: Active Orders 24 hr Category Date Time Status Diagnostics Tech STAT Care 02/09/20 20:29 Active EKG-ER Only STAT Care 02/09/20 20:29 Active IV Insertion STAT Care 02/09/20 20:29 Active Pulse Oximetry (ED) STAT Care 02/09/20 20:29 Active CHEST 1 VIEW (PORTABLE) Stat Exams 02/09/20 20:29 Taken CBC W DIFF Stat Lab 02/09/20 21:30 Completed CMP Stat Lab 02/09/20 22:20 Completed CULTURE,URINE Stat Lab 02/09/20 20:34 Received D-DIMER QUANTITATIVE Stat Lab 02/09/20 22:20 Completed HCG,QUALITATIVE URINE Stat Lab 02/09/20 20:34 Completed MAGNESIUM Stat Lab 02/09/20 22:20 Completed TROPONIN Q3H Lab 02/09/20 22:20 Completed TROPONIN Q3H Lab 02/09/20 23:30 Ordered TROPONIN Q3H Lab 02/10/20 02:30 Ordered TROPONIN Q3H Lab 02/10/20 05:30 Ordered TROPONIN Q3H Lab 02/10/20 08:30 Ordered UA W/RFX UR CULTURE Stat Lab 02/09/20 20:34 Completed Urine Triage Profile Stat Lab 02/09/20 20:34 Completed Transfer Order Routine Transfer 02/09/20 Ordered Medication Summary Discontinued Medications Generic Name Dose Route Start Last Admin Trade Name Freq PRN Reason Stop Dose Admin Aspirin 324 mg 02/09/20 21:54 02/09/20 22:06 Baby Aspirin 81 Mg Chew PO 02/09/20 21:55 324 mg STAT ONE Administration Aspirin Confirm 02/09/20 22:04 Baby Aspirin 81 Mg Chew Administered 02/09/20 22:05 Dose 324 mg .ROUTE .STK-MED ONE Sodium Chloride Confirm 02/09/20 20:38 Sodium Chloride 0.9% 1000 Ml Administered 02/09/20 20:39 Dose 1,000 mls @ ud .ROUTE .STK-MED ONE Sodium Chloride 1,000 mls @ 999 mls/hr 02/09/20 21:08 02/09/20 22:25 Sodium Chloride 0.9% 1000 Ml IV 02/09/20 22:08 Infused .Q1H1M STA Infusion Nitroglycerin 1 gm 02/09/20 21:55 02/09/20 22:06 Nitro-Bid 2% Ud Packets TOP 02/09/20 21:56 1 gm STAT ONE Administration Nitroglycerin Confirm 02/09/20 22:04 Nitro-Bid 2% Ud Packets Administered 02/09/20 22:05 Dose 1 gm .ROUTE .STK-MED ONE Ondansetron HCl Confirm 02/09/20 20:38 Zofran 4 Mg/2 Ml Vial Administered 02/09/20 20:39 Dose 4 mg .ROUTE .STK-MED ONE Ondansetron HCl 4 mg 02/09/20 21:08 02/09/20 21:20 Zofran 4 Mg/2 Ml Vial IV 02/09/20 21:09 4 mg STAT ONE Administration Potassium Chloride 40 meq 02/09/20 23:03 02/09/20 23:15 Klor Con 10 Meq PO 02/09/20 23:04 40 meq STAT ONE Administration Potassium Chloride Confirm 02/09/20 23:13 Klor Con 10 Meq Administered 02/09/20 23:14 Dose 40 meq PO .STK-MED ONE Lab/Rad Data: Laboratory Result Diagrams 02/09/20 21:30 02/09/20 22:20 Laboratory Results 02/09/20 02/09/20 02/09/20 Range/Units 22:30 22:20 22:20 WBC (4.0-10.5) K/mm3 RBC (4.1-5.4) M/mm3 Hgb (12.0-16.0) gm/dl Hct (35-47) % MCV (78-100) fl MCH (26-32) pg MCHC (32-36) g/dl RDW (11.5-14.0) % Plt Count (150-450) K/mm3 MPV (7.5-11.0) fl Gran % (36.0-66.0) % Eos # (Auto) (0-0.5) Absolute Lymphs (auto) (1.0-4.6) Absolute Monos (auto) (0.0-1.3) Lymphocytes % (24.0-44.0) % Monocytes % (0.0-12.0) % Eosinophils % (0.00-5.0) % Basophils % (0.0-0.4) % Absolute Granulocytes (1.4-6.9) Basophils # (0-0.4) D-Dimer 365 (215-500) ng/mL Sodium (137-145) mmol/L Potassium (3.5-5.1) mmol/L Chloride (98-107) mmol/L Carbon Dioxide (22-30) mmol/L Anion Gap (5-15) MEQ/L BUN (7-17) mg/dL Creatinine (0.52-1.04) mg/dL Estimated GFR ML/MIN Glucose (74-106) mg/dL Calcium (8.4-10.2) mg/dL Magnesium (1.6-2.3) mg/dL Total Bilirubin (0.2-1.3) mg/dL AST (14-36) U/L ALT (0-35) U/L Alkaline Phosphatase (38-126) U/L Troponin I < 0.012 (0.000-0.034) ng/mL Serum Total Protein (6.3-8.2) g/dL Albumin (3.5-5.0) g/dL Urine Color (YELLOW) Urine Appearance (CLEAR) Urine pH (5-6) Ur Specific Guthrie (1.005-1.025) Urine Protein (Negative) Urine Ketones (NEGATIVE) Urine Blood (0-5) Arias/ul Urine Nitrite (NEGATIVE) Urine Bilirubin (NEGATIVE) Urine Urobilinogen (0-1) mg/dL Ur Leukocyte Esterase (NEGATIVE) Urine WBC (Auto) (0-5) /HPF Urine RBC (Auto) (0-2) /HPF U Epithel Cells (Auto) (FEW) /HPF Urine Bacteria (Auto) (NEGATIVE) /HPF Urine Mucus (Auto) (NEGATIVE) /HPF Urine Culture Reflexed (NO) Urine Glucose (NEGATIVE) mg/dL Urine HCG, Qual (Negative) Urine Opiates Level (NEGATIVE) Ur Methadone (NEGATIVE) Urine Barbiturates (NEGATIVE) Ur Phencyclidine (PCP) (NEGATIVE) Urine Amphetamine (NEGATIVE) U Benzodiazepine Level (NEGATIVE) Urine Cocaine (NEGATIVE) Urine Marijuana (THC) (NEGATIVE) SARS-CoV-2 (PCR) NEGATIVE (NEGATIVE) 02/09/20 02/09/20 02/09/20 Range/Units 22:20 21:30 20:34 WBC 12.2 H (4.0-10.5) K/mm3 RBC 3.96 L (4.1-5.4) M/mm3 Hgb 12.7 (12.0-16.0) gm/dl Hct 39.1 (35-47) % MCV 98.7 (78-100) fl MCH 32.1 H (26-32) pg MCHC 32.5 (32-36) g/dl RDW 13.0 (11.5-14.0) % Plt Count 285 (150-450) K/mm3 MPV 10.2 (7.5-11.0) fl Gran % 54.4 (36.0-66.0) % Eos # (Auto) 0.20 (0-0.5) Absolute Lymphs (auto) 4.17 (1.0-4.6) Absolute Monos (auto) 1.17 (0.0-1.3) Lymphocytes % 34.2 (24.0-44.0) % Monocytes % 9.6 (0.0-12.0) % Eosinophils % 1.6 (0.00-5.0) % Basophils % 0.2 (0.0-0.4) % Absolute Granulocytes 6.63 (1.4-6.9) Basophils # 0.03 (0-0.4) D-Dimer (215-500) ng/mL Sodium 144 (137-145) mmol/L Potassium 2.9 L* (3.5-5.1) mmol/L Chloride 119 H (98-107) mmol/L Carbon Dioxide 20 L (22-30) mmol/L Anion Gap 8.8 (5-15) MEQ/L BUN 15 (7-17) mg/dL Creatinine 0.67 (0.52-1.04) mg/dL Estimated GFR > 60.0 ML/MIN Glucose 104 (74-106) mg/dL Calcium 8.5 (8.4-10.2) mg/dL Magnesium 1.7 (1.6-2.3) mg/dL Total Bilirubin 0.20 (0.2-1.3) mg/dL AST 15 (14-36) U/L ALT 10 (0-35) U/L Alkaline Phosphatase 119 (38-126) U/L Troponin I (0.000-0.034) ng/mL Serum Total Protein 6.4 (6.3-8.2) g/dL Albumin 3.5 (3.5-5.0) g/dL Urine Color (YELLOW) Urine Appearance (CLEAR) Urine pH (5-6) Ur Specific Guthrie (1.005-1.025) Urine Protein (Negative) Urine Ketones (NEGATIVE) Urine Blood (0-5) Arias/ul Urine Nitrite (NEGATIVE) Urine Bilirubin (NEGATIVE) Urine Urobilinogen (0-1) mg/dL Ur Leukocyte Esterase (NEGATIVE) Urine WBC (Auto) (0-5) /HPF Urine RBC (Auto) (0-2) /HPF U Epithel Cells (Auto) (FEW) /HPF Urine Bacteria (Auto) (NEGATIVE) /HPF Urine Mucus (Auto) (NEGATIVE) /HPF Urine Culture Reflexed (NO) Urine Glucose (NEGATIVE) mg/dL Urine HCG, Qual NEGATIVE (Negative) Urine Opiates Level (NEGATIVE) Ur Methadone (NEGATIVE) Urine Barbiturates (NEGATIVE) Ur Phencyclidine (PCP) (NEGATIVE) Urine Amphetamine (NEGATIVE) U Benzodiazepine Level (NEGATIVE) Urine Cocaine (NEGATIVE) Urine Marijuana (THC) (NEGATIVE) SARS-CoV-2 (PCR) (NEGATIVE) 02/09/20 02/09/20 Range/Units 20:34 20:34 WBC (4.0-10.5) K/mm3 RBC (4.1-5.4) M/mm3 Hgb (12.0-16.0) gm/dl Hct (35-47) % MCV (78-100) fl MCH (26-32) pg MCHC (32-36) g/dl RDW (11.5-14.0) % Plt Count (150-450) K/mm3 MPV (7.5-11.0) fl Gran % (36.0-66.0) % Eos # (Auto) (0-0.5) Absolute Lymphs (auto) (1.0-4.6) Absolute Monos (auto) (0.0-1.3) Lymphocytes % (24.0-44.0) % Monocytes % (0.0-12.0) % Eosinophils % (0.00-5.0) % Basophils % (0.0-0.4) % Absolute Granulocytes (1.4-6.9) Basophils # (0-0.4) D-Dimer (215-500) ng/mL Sodium (137-145) mmol/L Potassium (3.5-5.1) mmol/L Chloride (98-107) mmol/L Carbon Dioxide (22-30) mmol/L Anion Gap (5-15) MEQ/L BUN (7-17) mg/dL Creatinine (0.52-1.04) mg/dL Estimated GFR ML/MIN Glucose (74-106) mg/dL Calcium (8.4-10.2) mg/dL Magnesium (1.6-2.3) mg/dL Total Bilirubin (0.2-1.3) mg/dL AST (14-36) U/L ALT (0-35) U/L Alkaline Phosphatase (38-126) U/L Troponin I (0.000-0.034) ng/mL Serum Total Protein (6.3-8.2) g/dL Albumin (3.5-5.0) g/dL Urine Color YELLOW (YELLOW) Urine Appearance SLIGHTLY CLOUDY (CLEAR) Urine pH 6.0 (5-6) Ur Specific Guthrie 1.021 (1.005-1.025) Urine Protein 30 (Negative) Urine Ketones NEGATIVE (NEGATIVE) Urine Blood SMALL (0-5) Arias/ul Urine Nitrite NEGATIVE (NEGATIVE) Urine Bilirubin NEGATIVE (NEGATIVE) Urine Urobilinogen 2 (0-1) mg/dL Ur Leukocyte Esterase NEGATIVE (NEGATIVE) Urine WBC (Auto) 0-2 (0-5) /HPF Urine RBC (Auto) 3-5 (0-2) /HPF U Epithel Cells (Auto) RARE (FEW) /HPF Urine Bacteria (Auto) NONE (NEGATIVE) /HPF Urine Mucus (Auto) MANY (NEGATIVE) /HPF Urine Culture Reflexed YES (NO) Urine Glucose NEGATIVE (NEGATIVE) mg/dL Urine HCG, Qual (Negative) Urine Opiates Level NEGATIVE (NEGATIVE) Ur Methadone NEGATIVE (NEGATIVE) Urine Barbiturates NEGATIVE (NEGATIVE) Ur Phencyclidine (PCP) NEGATIVE (NEGATIVE) Urine Amphetamine NEGATIVE (NEGATIVE) U Benzodiazepine Level NEGATIVE (NEGATIVE) Urine Cocaine NEGATIVE (NEGATIVE) Urine Marijuana (THC) NEGATIVE (NEGATIVE) SARS-CoV-2 (PCR) (NEGATIVE) - Progress Progress: improved Air Movement: fair Progress Note: 02/10/20 00:19 Patient reassessed. Chest pain improved after administration of aspirin and nitroglycerin. Initial troponin negative. Patient is a smoker. In light of her intermittent chest pain with radiation into her left arm and diaphoresis we will admit patient for cardiac rule out and a stress test. Plan of care discussed with patient. She agrees to admission to [facility] for further evaluation and treatment. Case discussed with Dr. Gonzalez who accepts admission to observation. Blood Culture(s) Obtained: No Antibiotics given: No Discussed with : Ekta Will see patient in: hospital (observation) Counseled pt/family regarding: lab results, diagnosis, rad results, smoking cessation - Departure Departure Disposition: Observation Clinical Impression: ACS (acute coronary syndrome), Hypokalemia Condition: Stable Critical Care Time: No Referrals: CHRIS GONZALEZ [Primary Care Provider] -
[2020-02-09] MEDS ORDERED: NITRO-BID 2% UD PACKETS ONE (22:04)
[2020-02-09] MEDS ORDERED: BABY ASPIRIN 81 MG CHEW ONE (22:04)
[2020-02-09 22:05] LABS: Appearance SLIGHTLY CLOUDY (CLEAR); Bilirubin NEGATIVE (NEGATIVE); Blood SMALL Ery/ul (0-5); Epithelial Cells RARE /HPF (FEW); Glucose NEGATIVE (NEGATIVE); Ketones NEGATIVE (NEGATIVE); Leukocyte Esterase NEGATIVE (NEGATIVE); Mucus MANY /HPF (NEGATIVE); Nitrite NEGATIVE (NEGATIVE); Protein,Urine Dip 30 (Negative); Specific Gravity 1.021 (1.005-1.025); Urobilinogen 2 mg/dL (0-1); WBC 0-2 /HPF (0-5)
[2020-02-09 22:09] LABS: Amphetamine,Urine NEGATIVE (NEGATIVE); Barbiturate,Urine NEGATIVE (NEGATIVE); Benzodiazepine,Urine NEGATIVE (NEGATIVE); Cocaine,Urine NEGATIVE (NEGATIVE); Methadone,Urine NEGATIVE (NEGATIVE); Opiate,Urine NEGATIVE (NEGATIVE); PCP,Urine NEGATIVE (NEGATIVE); THC,Urine NEGATIVE (NEGATIVE)
[2020-02-09 22:50] LABS: ALBUMIN 3.5 g/dL (3.5-5.0); ALKALINE PHOSPHATASE 119 U/L (38-126); ANION GAP 8.8 MEQ/L (5-15); BLOOD UREA NITROGEN 15 mg/dL (7-17); CHLORIDE 119 mmol/L (98-107); Calcium 8.5 mg/dL (8.4-10.2); Carbon Dioxide 20 mmol/L (22-30); Creatinine 1 0.67 mg/dL (0.52-1.04); EST GLOMERULAR FILTRATION RATE > 60.0 ML/MIN; Glucose 104 mg/dL (74-106); MAGNESIUM 1.7 mg/dL (1.6-2.3); SGOT/AST 15 U/L (14-36); SGPT/ALT 10 U/L (0-35); SODIUM 144 mmol/L (137-145); Total Protein 6.4 g/dL (6.3-8.2)
[2020-02-09 22:57] LABS: Potassium 2.9 mmol/L (3.5-5.1)
[2020-02-09] MEDS ORDERED: Klor Con 10 MEQ PO ONE ×2 (23:03→23:13)
[2020-02-10] MEDS ORDERED: Senokot-S Tablet PO PRN (01:08)
[2020-02-10] MEDS ORDERED: MAALOX ES 30 ML UNIT DOSE PO PRN (01:08)
[2020-02-10] MEDS ORDERED: MILK OF MAGNESIA 30 ML PO PRN (01:08)
[2020-02-10] MEDS ORDERED: Zofran 4 MG/2 ML VIAL IV PRN (01:08)
[2020-02-10] MEDS: TYLENOL 325 MG PO PRN ×2 (01:48→07:50)
[2020-02-10 06:27] LABS: Risk Ratio 6.5
--- NOTE | 2020-02-10 08:59 | XRAY ---
Indication: Chest pain. Comparison: September 12, 2016. Portable chest demonstrates normal heart and lungs. Bony thorax intact. No new/acute findings.
[2020-02-10] MEDS ORDERED: NON-FORMULARY ITEM (Oxycodone Hcl/Acetaminophen [Oxycodon-Acetaminophen 7.5-325] 1 EACH) PO PRN (09:14)
[2020-02-10] MEDS ORDERED: GALCANEZUMAB GNLM 120 MG SQ SCH (09:15)
[2020-02-10] MEDS ORDERED: PERCOCET TABLET 5/325MG PO PRN (09:17)
[2020-02-10] MEDS ORDERED: Sodium Chloride 0.9% W/ 20 mEq KCl/LITER 1,000 ML IV SCH (09:30)
[2020-02-10] MEDS ORDERED: MEDICATION INTERVENTION MC SCH (09:30)
--- NOTE | 2020-02-10 09:47 | XRAY ---
Indication: Chest pain. Suspect Covid 19. Comparison: One day earlier. Portable chest again demonstrates normal heart and lungs with intact bony thorax. No new/acute findings.
[2020-02-10] MEDS ORDERED: Zocor 10MG PO SCH (10:00)
[2020-02-10] MEDS ORDERED: TOPIRAMATE PO SCH (10:00)
[2020-02-10] MEDS ORDERED: ZOLOFT 50 MG TABLET PO SCH (10:00)
[2020-02-10] MEDS ORDERED: Klor Con 10 MEQ PO SCH (10:00)
[2020-02-10 12:14] VITALS: BP 98/63; PULSE 68; O2SAT 100
== END 2020-02-10 15:00 | disposition home or self-care (01) ==
LOC: ED 20:15 → MED SURG 02-10 01:04
PROVIDERS: ADMIT Family Medicine; ATTEND Family Medicine
DX: R07.9 Chest pain, unspecified (principal); Z72.0 Tobacco use; Z79.899 Other long term (current) drug therapy; R51.9 Headache, unspecified; R53.83 Other fatigue; E87.6 Hypokalemia
CPT/HCPCS: 36000; 36415; 71045; 80053; 80061; 80307; 81001; 83721; 83735; 84132; 84484; 84703; 85025; 85379; 86769; 87086; 93005; 93041; 93268; 94760; 96360; 96374; 99285; G0378; U0003; J2405; A9270-GY

== ENCOUNTER 2020-11-17 10:24 | Emergency (ER) | payer OTHER ==
[2020-11-17] MEDS ORDERED: MORPHINE SULFATE 2 MG INJ IV ONE (10:36)
[2020-11-17] MEDS ORDERED: Zofran 4 MG/2 ML VIAL IV ONE (10:36)
[2020-11-17] MEDS ORDERED: Sodium Chloride 0.9% 1000 ML 1,000 ML IV STA (10:36)
[2020-11-17 10:49] LABS: Absolute Neutrophil Ct (ANC) 7.43 (1.4-6.9); BASOPHIL % 0.3 % (0.0-0.4); Basophil (Absolute #) 0.03 (0-0.4); Eosinophil % 3.6 % (0.00-5.0); Eosinophil (Absolute #) 0.37 (0-0.5); Hematocrit 34.8 % (35-47); Hemoglobin 11.3 gm/dl (12.0-16.0); Lymphocyte (Absolute #) 2.03 (1.0-4.6); Lymphocytes % 19.7 % (24.0-44.0); Mean Cell Volume 96.1 fl (78-100); Mean Corpuscular Hemoglobin 31.2 pg (26-32); Mean Corpuscular Hgb Concent. 32.5 g/dl (32-36); Mean Platelet Volume 9.5 fl (7.5-11.0); Monocyte (Absolute #) 0.47 (0.0-1.3); Monocytes % 4.5 % (0.0-12.0); Neutrophil % 71.9 % (36.0-66.0); Platelet Count 317 K/mm3 (150-450); Red Blood Count 3.62 M/mm3 (4.1-5.4); Red Cell Distribution Width 13.2 % (11.5-14.0); White Blood Count 10.3 K/mm3 (4.0-10.5)
[2020-11-17 11:05] LABS: ALBUMIN 3.7 g/dL (3.5-5.0); ALKALINE PHOSPHATASE 141 U/L (38-126); ANION GAP 11.9 MEQ/L (5-15); BLOOD UREA NITROGEN 8 mg/dL (7-17); CHLORIDE 113 mmol/L (98-107); Calcium 8.8 mg/dL (8.4-10.2); Carbon Dioxide 20 mmol/L (22-30); Creatinine 1 0.68 mg/dL (0.52-1.04); EST GLOMERULAR FILTRATION RATE > 60.0 ML/MIN; Glucose 86 mg/dL (74-106); LIPASE 145 U/L (23-300); Potassium 3.1 mmol/L (3.5-5.1); SGOT/AST 20 U/L (14-36); SGPT/ALT 11 U/L (0-35); SODIUM 142 mmol/L (137-145); Total Protein 6.7 g/dL (6.3-8.2)
[2020-11-17] MEDS ORDERED: Sodium Chloride 0.9% 1000 ML 1,000 ML ONE (11:07)
[2020-11-17] MEDS ORDERED: Zofran 4 MG/2 ML VIAL ONE (11:07)
[2020-11-17] MEDS ORDERED: MORPHINE SULFATE 2 MG INJ ONE (11:07)
--- NOTE | 2020-11-17 11:27 | ERPHSYRPT ---
- History of Present Illness Time Seen by Provider: 11/17/20 10:36 Historian: patient Exam Limitations: no limitations Patient Subjective Stated Complaint: abd pain Triage Nursing Assessment: pt to ED c/o abd pain x 1 week. hx stomach ulcers. saw pcp Saturday for work up, told to return if worsening. attempted to see PCP again today but was refferred to ED for further testing. c/o NVD as well. no other COVID sx. last po intake water on way to hospital, which she has kept down currently. rates 1010 pain today. Physician History: 49 years old female with history of chronic pain on pain management presented in the ER with 5 days history of progressively increasing abdominal pain more on the left side with radiation to the back, moderate to severe intensity, dull aching to sharp in nature, more with palpation and sent partial relief with pain medications. Associated multiple episodes of nonprojectile, nonbilious vomiting without hematemesis and loose watery diarrhea without hematochezia. Patient was seen at [facility] ER a few days ago with a CT showing colitis, placed on Cipro/Flagyl but does not seem helping with worsening of her symptoms. She sent in ER for further evaluation by primary care. Timing/Duration: day(s) (5), gradual onset, worse Activities at Onset: rest Quality: dullness, sharpness Abdominal Pain Onset Location: LUQ, LLQ, periumbilical Pain Radiation: back Severity of Pain-Max: severe Severity of Pain-Current: moderate Modifying Factors: Worsens With: movement, palpation, vomiting Associated Symptoms: diarrhea, nausea, vomiting Previous symptoms: same symptoms as today Allergies/Adverse Reactions: No Known Drug Allergies Allergy (Verified 02/10/20 01:31) Home Medications: Oxycodone HCl/Acetaminophen [Oxycodon-Acetaminophen 7.5-325] 1 each PO Q6HPRN PRN 06/17/17 [History] Topiramate [Topamax] 125 mg PO BID 12/10/18 [History] Sertraline HCl 50 mg PO BID 12/22/18 [History] Galcanezumab-Gnlm [Emgality Syringe] 120 mg SQ UD 02/10/20 [History] Hx Tetanus, Diphtheria Vaccination/Date Given: Yes Hx Influenza Vaccination/Date Given: No Hx Pneumococcal Vaccination/Date Given: No Immunizations Up to Date: No Travel Risk - International Travel Have you traveled outside of the country in past 3 weeks: No - Coronavirus Screening Are you exhibiting any of the following symptoms?: Yes Symptoms: Vomiting/Diarrhea Close contact with a COVID-19 positive Pt in past 14-21 Days: No - Vaccine Status Have you recieved a Covid-19 vaccination: No - Review of Systems Constitutional: Fatigue, Weakness Eyes: No Symptoms Ears, Nose, & Throat: No Symptoms Respiratory: No Symptoms Cardiac: No Symptoms Abdominal/Gastrointestinal: Abdominal Pain, Nausea, Vomiting, Diarrhea Genitourinary Symptoms: No Symptoms Musculoskeletal: Arthralgias Skin: No Symptoms Neurological: No Symptoms Psychological: Anxiety Endocrine: No Symptoms Hematologic/Lymphatic: No Symptoms Immunological/Allergic: No Symptoms - Past Medical History Pertinent Past Medical History: Yes Neurological History: Migraines ENT History: No Pertinent History Cardiac History: No Pertinent History Respiratory History: Asthma, Sleep Apnea Endocrine Medical History: No Pertinent History Musculoskeletal History: No Pertinent History GI Medical History: Colitis, Diverticulitis, Gallbladder Disease History: No Pertinent History Psycho-Social History: Depression Female Reproductive Disorders: Endometriosis, Other Other Medical History: R TKA, prior history of R meniscus and 2 surgeries to repair that. Past internal TENS was placed and removed. - Past Surgical History Past Surgical History: Yes Neuro Surgical History: No Pertinent History Cardiac: No Pertinent History Respiratory: No Pertinent History Gastrointestinal: Appendectomy, Cholecystectomy Genitourinary: Other Musculoskeletal: Joint Replacement, Orthopedic Surgery Female Surgical History: Hysterectomy Other Surgical History: Stent for kidney stone 7 years ago. LEFT KNEE SURGERY - Social History Smoking Status: Current every day smoker How long have you smoked: 23 years Exposure to second hand smoke: Yes Drug Use: none Patient Lives Alone: No - Female History Hx Now: (unkn) - Nursing Vital Signs Nursing Vital Signs: Initial Vital Signs Temperature 97.7 F 11/17/20 10:32 Pulse Rate 79 11/17/20 10:32 Respiratory Rate 19 11/17/20 10:32 Blood Pressure 100/59 11/17/20 10:32 O2 Sat by Pulse Oximetry 99 11/17/20 10:32 Pain Scale Pain Intensity 9 - Physical Exam General Appearance: no apparent distress, alert, anxiety Eye Exam: PERRL/EOMI, eyes nml inspection Ears, Nose, Throat Exam: normal ENT inspection, TMs normal, pharynx normal Neck Exam: normal inspection, supple, full range of motion Respiratory Exam: normal breath sounds, lungs clear Cardiovascular Exam: regular rate/rhythm, normal heart sounds Gastrointestinal/Abdomen Exam: soft, normal bowel sounds, tenderness (Right upper/lower quadrant/flank/periumbilical area with minimal guarding without rebound tenderness.), No mass Back Exam: normal inspection, No CVA tenderness Extremity Exam: normal inspection, normal range of motion Neurologic Exam: alert, oriented x 3, cooperative Skin Exam: normal color SpO2 Interpretation: normal SpO2: 99 O2 Delivery: Room Air Ordered Tests: Active Orders 24 hr Category Date Time Status IV Insertion STAT Care 11/17/20 10:36 Active NPO (ED) STAT Care 11/17/20 10:36 Active ABDOMEN AND PELVIS W CONTRAST [CT] Stat Exams 11/17/20 10:37 Completed CBC W DIFF Stat Lab 11/17/20 10:49 Completed CMP Stat Lab 11/17/20 10:49 Completed LIPASE Stat Lab 11/17/20 10:49 Completed UA W/RFX UR CULTURE Stat Lab 11/17/20 10:36 Ordered Medication Summary Discontinued Medications Generic Name Dose Route Start Last Admin Trade Name Freq PRN Reason Stop Dose Admin Sodium Chloride 1,000 mls @ 999 mls/hr 11/17/20 10:36 11/17/20 12:12 Sodium Chloride 0.9% 1000 Ml IV 11/17/20 11:36 Infused .Q1H1M STA Infusion Sodium Chloride Confirm 11/17/20 11:07 Sodium Chloride 0.9% 1000 Ml Administered 11/17/20 11:08 Dose 1,000 mls @ ud .ROUTE .STK-MED ONE Morphine Sulfate 2 mg 11/17/20 10:36 11/17/20 11:10 Morphine Sulfate 2 Mg Inj IV 11/17/20 10:37 2 mg STAT ONE Administration Morphine Sulfate Confirm 11/17/20 11:07 Morphine Sulfate 2 Mg Inj Administered 11/17/20 11:08 Dose 2 mg .ROUTE .STK-MED ONE Ondansetron HCl 4 mg 11/17/20 10:36 11/17/20 11:10 Zofran 4 Mg/2 Ml Vial IV 11/17/20 10:37 4 mg STAT ONE Administration Ondansetron HCl Confirm 11/17/20 11:07 Zofran 4 Mg/2 Ml Vial Administered 11/17/20 11:08 Dose 4 mg .ROUTE .STK-MED ONE Potassium Bicarbonate 50 meq 11/17/20 12:04 11/17/20 12:13 K-Lyte 25 Meq PO 11/17/20 12:05 50 meq STAT ONE Administration Potassium Bicarbonate Confirm 11/17/20 12:12 K-Lyte 25 Meq Administered 11/17/20 12:13 Dose 50 meq .ROUTE .STK-MED ONE Lab/Rad Data: Laboratory Result Diagrams 11/17/20 10:49 11/17/20 10:49 Laboratory Results 11/17/20 11/17/20 Range/Units 10:49 10:49 WBC 10.3 (4.0-10.5) K/mm3 RBC 3.62 L (4.1-5.4) M/mm3 Hgb 11.3 L (12.0-16.0) gm/dl Hct 34.8 L (35-47) % MCV 96.1 (78-100) fl MCH 31.2 (26-32) pg MCHC 32.5 (32-36) g/dl RDW 13.2 (11.5-14.0) % Plt Count 317 (150-450) K/mm3 MPV 9.5 (7.5-11.0) fl Gran % 71.9 H (36.0-66.0) % Eos # (Auto) 0.37 (0-0.5) Absolute Lymphs (auto) 2.03 (1.0-4.6) Absolute Monos (auto) 0.47 (0.0-1.3) Lymphocytes % 19.7 L (24.0-44.0) % Monocytes % 4.5 (0.0-12.0) % Eosinophils % 3.6 (0.00-5.0) % Basophils % 0.3 (0.0-0.4) % Absolute Granulocytes 7.43 H (1.4-6.9) Basophils # 0.03 (0-0.4) Sodium 142 (137-145) mmol/L Potassium 3.1 L (3.5-5.1) mmol/L Chloride 113 H (98-107) mmol/L Carbon Dioxide 20 L (22-30) mmol/L Anion Gap 11.9 (5-15) MEQ/L BUN 8 (7-17) mg/dL Creatinine 0.68 (0.52-1.04) mg/dL Estimated GFR > 60.0 ML/MIN Glucose 86 (74-106) mg/dL Calcium 8.8 (8.4-10.2) mg/dL Total Bilirubin 0.20 (0.2-1.3) mg/dL AST 20 (14-36) U/L ALT 11 (0-35) U/L Alkaline Phosphatase 141 H (38-126) U/L Serum Total Protein 6.7 (6.3-8.2) g/dL Albumin 3.7 (3.5-5.0) g/dL Lipase 145 (23-300) U/L - Progress Progress: improved, pain not gone completely, re-examined Progress Note: 11/17/20 12:24 She is given fluid bolus and small dose of morphine, reevaluation feeling better. Acute abdomen work-up grossly negative, mild hypokalemia and given oral replacement. I have obtained CT abdomen pelvis with contrast which is negative for any acute findings. I believe antibiotics are working and recommended continue with them. Do not think she needs any further work-up and is stable for discharge with outpatient follow-up. Discussed signs symptoms of worsening needing return to ER which she seems understanding. Counseled pt/family regarding: lab results, diagnosis, need for follow-up, rad results - Departure Departure Disposition: Home Clinical Impression: Left sided abdominal pain, Colitis Condition: Stable Critical Care Time: No Referrals: CHRIS GONZALEZ MD [Primary Care Provider] - Follow Up with PCP/3 days Instructions: Acute Abdomen (Belly Pain), Adult (DC) Additional Instructions: Drink plenty of fluids. Continue with your pain medication which you have at h ome. Continue with antibiotics you are currently taking. Follow-up with primary care for reevaluation. Return to ER for intractable pain, worsening diarrhea/vomiting or if develop fever chills etc.
--- NOTE | 2020-11-17 11:35 | XRAY ---
Indication: Abdomen and flank pain. Nausea and vomiting. Multiple contiguous images obtained through the abdomen and pelvis using 80 cc Isovue 370 contrast. Comparison: September 11, 2019. Lung bases demonstrates minimal bibasilar dependent atelectasis. Stable 4 mm left lower lobe subpleural noncalcified nodule favored to be benign. Heart not enlarged. Noncontrasted stomach and bowel loops nonobstructed. Appendectomy, cholecystectomy, and hysterectomy reported. Common bile duct is 1.3 cm in diameter. No free fluid/air. Inferior right lobe liver demonstrates stable 6 mm cyst. Remaining liver, pancreas, spleen, adrenal glands, kidneys, ureters, and bladder are unremarkable. Again minimal aortoiliac calcifications. No AAA or pathologic retroperitoneal lymphadenopathy. Osseous structures intact. Impression: 1. Prominent common bile duct within normal limits for cholecystectomy. 2. Stable tiny hepatic cyst and tiny left lower lobe noncalcified micronodule. 3. Remaining CT abdomen/pelvis with contrast exam is negative.
[2020-11-17] MEDS ORDERED: K-LYTE 25 MEQ PO ONE (12:04)
[2020-11-17] MEDS ORDERED: K-LYTE 25 MEQ ONE (12:12)
[2020-11-17 12:25] VITALS: O2SAT 99
[2020-11-17 12:26] VITALS: BP 95/58; PULSE 64
== END 2020-11-17 12:31 | disposition home or self-care (01) ==
LOC: ED 10:24
DX: R10.9 Unspecified abdominal pain (principal); K52.9 Noninfective gastroenteritis and colitis, unspecified
CPT/HCPCS: 36000; 36415; 74177; 80053; 83690; 85025; 96360; 96374; 96375; 99284; J2270; J2405; A9270-GY

== ENCOUNTER 2021-10-18 12:54 | Emergency (ER) | payer OTHER ==
[2021-10-18] MEDS ORDERED: solu-MEDROL ONE (13:34)
[2021-10-18] MEDS ORDERED: Sodium Chloride 0.9% 1000 ML 1,000 ML ONE (13:34)
[2021-10-18] MEDS ORDERED: Sterile H2O 10 ml IJ ONE (13:34)
--- NOTE | 2021-10-18 13:35 | ERPHSYRPT ---
- History of Present Illness Time Seen by Provider: 10/18/21 13:05 Source: patient Exam Limitations: no limitations Patient Subjective Stated Complaint: Pt states "I am short of breath. The right side of my face is swollen and does not move right." Triage Nursing Assessment: PT presented alert and oriented X 3, skin pwd Pt ambulates with a slight unsteady gait, able to speak in squeaky full sentences the right side of pt face is swollen and does not move like the left. Physician History: Patient is a 50-year-old female who presents with a complaint of shortness of breath she has been feeling bad since yesterday much worse today she has had a cough producing some yellow sputum she also has had chills and sweats but has not checked her fever. She has a history of asthma but she has no history of any sinus problems she also complains of swelling of the right side of the face since yesterday a.m. The face is extremely painful. Timing/Duration: yesterday Activities at Onset: none Severity of Dyspnea-Max: mild Severity of Dyspnea-Current: mild Possible Cause: occasional episodes Modifying Factors: Improves With: coughing Associated Symptoms: cough, chills, productive cough, sweating Allergies/Adverse Reactions: No Known Drug Allergies Allergy (Verified 02/10/20 01:31) Home Medications: Oxycodone HCl/Acetaminophen [Oxycodon-Acetaminophen 7.5-325] 1 each PO Q6HPRN PRN 06/17/17 [History] Topiramate [Topamax] 125 mg PO BID 12/10/18 [History] Sertraline HCl 50 mg PO BID 12/22/18 [History] Galcanezumab-Gnlm [Emgality Syringe] 120 mg SQ UD 02/10/20 [History] Hx Tetanus, Diphtheria Vaccination/Date Given: Yes Hx Influenza Vaccination/Date Given: No Hx Pneumococcal Vaccination/Date Given: No Immunizations Up to Date: Yes Travel Risk - International Travel Have you traveled outside of the country in past 3 weeks: No - Coronavirus Screening Are you exhibiting any of the following symptoms?: No Close contact with a COVID-19 positive Pt in past 14-21 Days: No - Vaccine Status Have you recieved a Covid-19 vaccination: No - Review of Systems Constitutional: Chills, Night Sweats Eyes: No Symptoms Ears, Nose, & Throat: Nose Congestion, Sinus Drainage, Other (Facial swelling) Respiratory: Cough, Dyspnea Cardiac: No Symptoms Abdominal/Gastrointestinal: No Symptoms Genitourinary Symptoms: No Symptoms Musculoskeletal: No Symptoms Skin: No Symptoms Neurological: No Symptoms Psychological: No Symptoms Endocrine: No Symptoms Hematologic/Lymphatic: No Symptoms Immunological/Allergic: No Symptoms All Other Systems: Reviewed and Negative - Past Medical History Pertinent Past Medical History: Yes Neurological History: Migraines ENT History: No Pertinent History Cardiac History: No Pertinent History Respiratory History: Asthma, Sleep Apnea Endocrine Medical History: No Pertinent History Musculoskeletal History: No Pertinent History GI Medical History: Colitis, Diverticulitis, Gallbladder Disease History: No Pertinent History Psycho-Social History: Depression Female Reproductive Disorders: Endometriosis, Other Other Medical History: R TKA, prior history of R meniscus and 2 surgeries to r epair that. Past internal TENS was placed and removed. - Past Surgical History Past Surgical History: Yes Neuro Surgical History: No Pertinent History Cardiac: No Pertinent History Respiratory: No Pertinent History Gastrointestinal: Appendectomy, Cholecystectomy Genitourinary: Other Musculoskeletal: Joint Replacement, Orthopedic Surgery Female Surgical History: Hysterectomy Other Surgical History: Stent for kidney stone 7 years ago. LEFT KNEE SURGERY - Social History Smoking Status: Current every day smoker How long have you smoked: 23 years Exposure to second hand smoke: Yes Drug Use: none Patient Lives Alone: No - Female History Hx Last Menstrual Period: hysterectomy Hx Now: No - Nursing Vital Signs Nursing Vital Signs: Initial Vital Signs Temperature 98.1 F 10/18/21 12:55 Pulse Rate 70 10/18/21 12:55 Respiratory Rate 22 10/18/21 12:55 Blood Pressure 122/77 10/18/21 12:55 O2 Sat by Pulse Oximetry 100 10/18/21 12:55 Pain Scale Pain Intensity 8 - Physical Exam General Appearance: mild distress, alert Eye Exam: PERRL/EOMI Ears, Nose, Throat Exam: sinus pain/drainage (Swelling right side of the face) Neck Exam: normal inspection, supple Respiratory Exam: diminished breath sounds, rhonchi Cardiovascular/Chest Exam: normal heart sounds, regular rate/rhythm Abdominal/Gastrointestinal Exam: soft, No tenderness, No distention, No mass Extremity Exam: non-tender, normal range of motion, normal inspection, no calf tenderness, no pedal edema Neurologic Exam: alert, oriented x 3, cooperative, 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, sensation nml, No motor deficits Skin Exam: normal color, warm, No dry SpO2 Interpretation: normal SpO2: 98 O2 Delivery: Room Air - Course Nursing assessment & vital signs reviewed: Yes EKG Interpreted by Me: RATE (67), Sinus Rhythm, NORMAL AXIS, NORMAL INTERVALS, NORMAL QRS, Non-specific ST Changes - Radiology Exams Chest X-ray Interpretation: Reviewed by me - CT Exams Head CT Interpretation: Negative Maxillofacial Bones CT Interpretation: Other (Facial cellulitis and bilateral maxillary sinusitis) Ordered Tests: Active Orders 24 hr Category Date Time Status EKG-ER Only STAT Care 10/18/21 13:26 Active IV Insertion STAT Care 10/18/21 13:26 Active CHEST 1 VIEW (PORTABLE) Routine Exams 10/18/21 13:44 Completed FACIAL BONES WO CONTRAST [CT] Routine Exams 10/18/21 13:35 Completed HEAD WITHOUT CONTRAST [CT] Routine Exams 10/18/21 13:34 Completed BLOOD CULTURE Stat Lab 10/18/21 13:50 Received CBC W DIFF Stat Lab 10/18/21 13:50 Completed CMP Stat Lab 10/18/21 13:26 Completed D-DIMER QUANTITATIVE Stat Lab 10/18/21 13:50 Received Lactic Acid Stat Lab 10/18/21 13:55 Completed MAGNESIUM Stat Lab 10/18/21 13:26 Completed NT PRO BNP Stat Lab 10/18/21 13:26 Completed PROTIME WITH INR Stat Lab 10/18/21 13:50 Received TROPONIN Q4H Lab 10/18/21 13:50 Completed TROPONIN Q4H Lab 10/18/21 17:30 Ordered TROPONIN Q4H Lab 10/18/21 21:30 Ordered Medication Summary Generic Name Dose Route Start Last Admin Trade Name Freq PRN Reason Stop Dose Admin Ceftriaxone Sodium/Dextrose 1 g in 50 mls @ 100 mls/hr 10/18/21 14:45 10/18/21 14:47 Rocephin 1 Gm-D5w 50 Ml Bag IV 10/18/21 15:14 100 mls/hr STAT STA 100 mls/hr Administration Discontinued Medications Generic Name Dose Route Start Last Admin Trade Name Freq PRN Reason Stop Dose Admin Methylprednisolone Sodium 0 mg 10/18/21 13:26 10/18/21 13:36 Succinate 125 mg/ Sterile IV 10/18/21 13:27 125 mg Water 10 ml STAT ONE Administration Sodium Chloride 1,000 mls @ 999 mls/hr 10/18/21 13:26 10/18/21 14:33 Sodium Chloride 0.9% 1000 Ml IV 10/18/21 14:26 Infused .Q1H1M STA Infusion Sodium Chloride Confirm 10/18/21 13:34 Sodium Chloride 0.9% 1000 Ml Administered 10/18/21 13:35 Dose 1,000 mls @ ud .ROUTE .STK-MED ONE Ceftriaxone Sodium/Dextrose Confirm 10/18/21 14:46 Rocephin 1 Gm-D5w 50 Ml Bag Administered 10/18/21 14:47 Dose 1 g in 50 mls @ ud IV .STK-MED ONE Methylprednisolone Sodium Succinate Confirm 10/18/21 13:34 Methylprednis Sod Succ 125 Mg/2 Ml Vial Administered 10/18/21 13:35 Dose 125 mg .ROUTE .STK-MED ONE Potassium Bicarbonate 50 meq 10/18/21 14:29 10/18/21 14:47 Potassium Bicarbonate 25 Meq Tab PO 10/18/21 14:30 50 meq STAT ONE Administration Potassium Bicarbonate Confirm 10/18/21 14:46 Potassium Bicarbonate 25 Meq Tab Administered 10/18/21 14:47 Dose 50 meq .ROUTE .STK-MED ONE Sterile Water Confirm 10/18/21 13:34 Water For Injection,Sterile 10 Ml Vial Administered 10/18/21 13:35 Dose 10 ml IJ .STK-MED ONE Lab/Rad Data: Laboratory Result Diagrams 10/18/21 13:50 10/18/21 13:26 Laboratory Results 10/18/21 10/18/21 10/18/21 Range/Units 13:55 13:50 13:50 WBC (4.0-10.5) x10^3/uL RBC (4.1-5.4) x10^6/uL Hgb (12.0-16.0) g/dL Hct (35-47) % MCV (78-100) fL MCH (26-32) pg MCHC (32-36) g/dL RDW (11.5-14.0) % Plt Count (150-450) x10^3/uL MPV (7.5-11.0) fL Gran % (36.0-66.0) % Immature Gran % (Auto) (0.00-0.4) % Nucleat RBC Rel Count (0.00-0.1) % Eos # (Auto) (0-0.5) x10^3/uL Immature Gran # (Auto) (0.00-0.03) x10^3u/L Absolute Lymphs (auto) (1.0-4.6) x10^3/uL Absolute Monos (auto) (0.0-1.3) x10^3/uL Absolute Nucleated RBC (0.00-0.01) x10^3u/L Lymphocytes % (24.0-44.0) % Monocytes % (0.0-12.0) % Eosinophils % (0.00-5.0) % Basophils % (0.0-0.4) % Absolute Granulocytes (1.4-6.9) x10^3/uL Basophils # (0-0.4) x10^3/uL Sodium (137-145) mmol/L Potassium (3.5-5.1) mmol/L Chloride (98-107) mmol/L Carbon Dioxide (22-30) mmol/L Anion Gap (5-15) MEQ/L BUN (7-17) mg/dL Creatinine (0.52-1.04) mg/dL Estimated GFR ML/MIN Glucose (74-106) mg/dL Lactic Acid 0.9 (0.4-2.0) Calcium (8.4-10.2) mg/dL Magnesium (1.6-2.3) mg/dL Total Bilirubin (0.2-1.3) mg/dL AST (14-36) U/L ALT (0-35) U/L Alkaline Phosphatase (38-126) U/L Troponin I < 0.012 (0.000-0.034) ng/mL NT-Pro-B Natriuret Pep (0-450) pg/mL Serum Total Protein (6.3-8.2) g/dL Albumin (3.5-5.0) g/dL Influenza Type A Ag NEGATIVE (NEGATIVE) Influenza Type B Ag NEGATIVE (NEGATIVE) RSV (PCR) NEGATIVE (Negative) SARS-CoV-2 (PCR) POSITIVE A (NEGATIVE) 10/18/21 10/18/21 Range/Units 13:50 13:26 WBC 4.8 (4.0-10.5) x10^3/uL RBC 3.54 L (4.1-5.4) x10^6/uL Hgb 11.0 L (12.0-16.0) g/dL Hct 32.2 L (35-47) % MCV 91.0 (78-100) fL MCH 31.1 (26-32) pg MCHC 34.2 (32-36) g/dL RDW 12.9 (11.5-14.0) % Plt Count 190 (150-450) x10^3/uL MPV 10.1 (7.5-11.0) fL Gran % 58.4 (36.0-66.0) % Immature Gran % (Auto) 0.2 (0.00-0.4) % Nucleat RBC Rel Count 0.0 (0.00-0.1) % Eos # (Auto) 0.02 (0-0.5) x10^3/uL Immature Gran # (Auto) 0.01 (0.00-0.03) x10^3u/L Absolute Lymphs (auto) 1.28 (1.0-4.6) x10^3/uL Absolute Monos (auto) 0.69 (0.0-1.3) x10^3/uL Absolute Nucleated RBC 0.00 (0.00-0.01) x10^3u/L Lymphocytes % 26.5 (24.0-44.0) % Monocytes % 14.3 H (0.0-12.0) % Eosinophils % 0.4 (0.00-5.0) % Basophils % 0.2 (0.0-0.4) % Absolute Granulocytes 2.82 (1.4-6.9) x10^3/uL Basophils # 0.01 (0-0.4) x10^3/uL Sodium 143 (137-145) mmol/L Potassium 2.9 L* (3.5-5.1) mmol/L Chloride 115 H (98-107) mmol/L Carbon Dioxide 18 L (22-30) mmol/L Anion Gap 13.1 (5-15) MEQ/L BUN 15 (7-17) mg/dL Creatinine 0.56 (0.52-1.04) mg/dL Estimated GFR > 60.0 ML/MIN Glucose 97 (74-106) mg/dL Lactic Acid (0.4-2.0) Calcium 8.8 (8.4-10.2) mg/dL Magnesium 1.8 (1.6-2.3) mg/dL Total Bilirubin 0.50 (0.2-1.3) mg/dL AST 21 (14-36) U/L ALT 15 (0-35) U/L Alkaline Phosphatase 136 H (38-126) U/L Troponin I (0.000-0.034) ng/mL NT-Pro-B Natriuret Pep 179 (0-450) pg/mL Serum Total Protein 7.3 (6.3-8.2) g/dL Albumin 3.8 (3.5-5.0) g/dL Influenza Type A Ag (NEGATIVE) Influenza Type B Ag (NEGATIVE) RSV (PCR) (Negative) SARS-CoV-2 (PCR) (NEGATIVE) - Progress Progress: improved Air Movement: good Blood Culture(s) Obtained: Yes Antibiotics given: Yes - Departure Departure Disposition: Home Clinical Impression: COVID, Sinusitis, Hypokalemia, Cellulitis Condition: Stable Critical Care Time: No Referrals: CHRIS GONZALEZ MD [Primary Care Provider] - Follow up/PCP as directed Instructions: COVID-19 (DC), Sinusitis, Adult (DC), Cellulitis (Skin Infection), Adult (DC), Hypokalemia (DC) Prescriptions: Cephalexin Mh 500 mg [Keflex 500 mg] 500 mg PO QID #40 cap Potassium Chloride Tab* [Klor Con] 10 meq PO DAILY #5 tab Nirmatrelvir/Ritonavir [Paxlovid 2X150 mg-100 mg (Eua)] 1 each PO BID 5 Days #10 tablet
[2021-10-18] MEDS: Sodium Chloride 0.9% 1000 ML 1,000 ML IV STA (13:36)
[2021-10-18] MEDS: solu-MEDROL 125 MG, Sterile H2O 10 ml 10 ML IV ONE ×2 (13:36)
[2021-10-18 13:59] LABS: Absolute Neutrophil Ct (ANC) 2.82 x10^3/uL (1.4-6.9); Basophil (Absolute #) 0.01 x10^3/uL (0-0.4); Eosinophil % 0.4 % (0.00-5.0); Eosinophil (Absolute #) 0.02 x10^3/uL (0-0.5); Hematocrit 32.2 % (35-47); Lymphocyte (Absolute #) 1.28 x10^3/uL (1.0-4.6); Lymphocytes % 26.5 % (24.0-44.0); Mean Corpuscular Hemoglobin 31.1 pg (26-32); Mean Corpuscular Hgb Concent. 34.2 g/dL (32-36); Mean Platelet Volume 10.1 fL (7.5-11.0); Monocyte (Absolute #) 0.69 x10^3/uL (0.0-1.3); Monocytes % 14.3 % (0.0-12.0); Neutrophil % 58.4 % (36.0-66.0); Platelet Count 190 x10^3/uL (150-450); Red Blood Count 3.54 x10^6/uL (4.1-5.4); Red Cell Distribution Width 12.9 % (11.5-14.0); White Blood Count 4.8 x10^3/uL (4.0-10.5)
[2021-10-18 14:12] LABS: D-DIMER QUANTITATIVE 0.52 mg/L (0.0-0.50); INR 1.04 (0.8-3.0)
[2021-10-18 14:21] LABS: ALBUMIN 3.8 g/dL (3.5-5.0); ALKALINE PHOSPHATASE 136 U/L (38-126); ANION GAP 13.1 MEQ/L (5-15); BLOOD UREA NITROGEN 15 mg/dL (7-17); CHLORIDE 115 mmol/L (98-107); Calcium 8.8 mg/dL (8.4-10.2); Carbon Dioxide 18 mmol/L (22-30); Creatinine 1 0.56 mg/dL (0.52-1.04); EST GLOMERULAR FILTRATION RATE > 60.0 ML/MIN; Glucose 97 mg/dL (74-106); MAGNESIUM 1.8 mg/dL (1.6-2.3); NT PRO BNP 179 pg/mL (0-450); SGOT/AST 21 U/L (14-36); SGPT/ALT 15 U/L (0-35); SODIUM 143 mmol/L (137-145); Total Protein 7.3 g/dL (6.3-8.2)
--- NOTE | 2021-10-18 14:24 | XRAY ---
Indication: Right facial swelling. Multiple contiguous axial images obtained through the head without contrast. Comparison: None Normal appearing brain parenchyma, ventricles, and bony calvarium. Visualized paranasal sinuses and mastoid air cells are clear. Impression: Normal CT head without contrast exam.
[2021-10-18 14:29] LABS: Potassium 2.9 mmol/L (3.5-5.1)
--- NOTE | 2021-10-18 14:29 | XRAY ---
Indication: Right facial swelling. Multiple contiguous axial images obtained through the facial bones. Sagittal and coronal reformatted images obtained. Comparison: None A few bilateral dental amalgams produces beam artifact. Mild right facial soft tissue swelling/induration without focal solid/cystic soft tissue mass or abnormal fluid collection. No acute fracture, suspicious bony lesions, or radiopaque foreign body. Orbits including roof, magana, and floors intact. Mild/moderate mucosal thickening both maxillary sinuses and bilateral antrectomy surgery. Remaining paranasal sinuses are clear. Scattered centimeter/subcentimeter cervical and submandibular lymph nodes bilaterally presumed reactive. No pathologic lymphadenopathy. Minimal bilateral carotid calcifications. Impression: Right facial cellulitis, bilateral maxillary sinus disease, and small reactive cervical lymph nodes. Incidental minimal bilateral carotid calcifications.
--- NOTE | 2021-10-18 14:29 | XRAY ---
Indication: Short of breath. Asthma. Comparison: February 24, 2020 Portable chest remains inflated and clear. Heart not enlarged. Bony thorax intact. No new/acute findings.
[2021-10-18 14:38] LABS: INFLUENZA A NEGATIVE (NEGATIVE); INFLUENZA B NEGATIVE (NEGATIVE); RESPIRATORY SYNCTIAL VIRUS NEGATIVE (Negative)
[2021-10-18 14:42] LABS: SARS-CoV-2 Xpert Express POSITIVE (NEGATIVE)
[2021-10-18] MEDS ORDERED: K-LYTE ONE (14:46)
[2021-10-18] MEDS ORDERED: ROCEPHIN 1 Gm-D5w 50 ml Bag** 1 G/50 ML IVPB IV ONE (14:46)
[2021-10-18] MEDS: ROCEPHIN 1 Gm-D5w 50 ml Bag** 1 G/50 ML IVPB IV STA (14:47)
[2021-10-18] MEDS: K-LYTE PO ONE (14:47)
[2021-10-18 14:57] VITALS: O2SAT 98
[2021-10-18 15:20] VITALS: PULSE 64
[2021-10-18 15:24] VITALS: BP 126/83
== END 2021-10-18 15:24 | disposition home or self-care (01) ==
LOC: ED 12:54
DX: U07.1 COVID-19 (principal); J32.0 Chronic maxillary sinusitis; L03.211 Cellulitis of face; E87.6 Hypokalemia; R06.02 Shortness of breath; R05.1 Acute cough; Z72.0 Tobacco use; Z79.899 Other long term (current) drug therapy; Z28.310 Unvaccinated for COVID-19
CPT/HCPCS: 0241U; 36000; 36415; 70450; 70486; 71045; 80053; 83605; 83735; 83880; 84484; 85025; 85379; 85610; 87040; 87651; 93005; 96374; 99284; J0696; J2930; A9270-GY

== ENCOUNTER 2022-08-03 10:59 | Inpatient (IN) | payer OTHER ==
[2022-08-03] MEDS ORDERED: BABY ASPIRIN 81 MG CHEW PO ONE ×2 (11:19→11:22)
[2022-08-03] MEDS ORDERED: HYDROCODONE-ACETAMIN 2.5-108/5 ML SOLUTION PO STA (11:29)
[2022-08-03] MEDS ORDERED: BABY ASPIRIN 81 MG CHEW ONE (11:31)
[2022-08-03] MEDS ORDERED: HYDROCODONE-ACETAMIN 2.5-108/5 ML SOLUTION ONE (11:32)
[2022-08-03] MEDS: Sodium Chloride 0.9% 1000 ML 1,000 ML IV SCH ×2 (11:36→21:20)
--- NOTE | 2022-08-03 11:56 | ERPHSYRPT ---
- History of Present Illness Time Seen by Provider: 08/03/22 11:10 Source: patient Exam Limitations: no limitations Patient Subjective Stated Complaint: Pt reports for approx 2 days she has had feelings of unable to catch her breath, a productive cough with yellow flegm and some chest pains. Pt states today she has not been able to get any secretions up while coughing. Some chest pain, worse when coughing. Triage Nursing Assessment: Pt alert and oriented x3. Pt appears short of breath, shallow respirations, tachypnea, O2 sat 85% on room air. Placed on 3L via NC and O2 sat blaine to 96%. Crackles heard throughout lungs bilaterally. No lower ex tremity edema noted. Skin w/p/d. Physician History: Patient is a 51-year-old white female with a history of asthma who presents with a complaint of shortness of breath for 2 days she initially had some productive cough of yellow sputum. 2 days ago she had chest pain but no fever chills or sweats her chest pain was pleuritic in nature. She does have on auscultation some bibasilar rales per the nurse. Timing/Duration: day(s) (3) Activities at Onset: none Severity of Dyspnea-Max: moderate Severity of Dyspnea-Current: moderate Possible Cause: occasional episodes Modifying Factors: Improves With: albuterol nebulizer Associated Symptoms: cough, chest pain/discomfort, wheezing, productive cough, tightness, No fever, No chills, No hemoptysis Allergies/Adverse Reactions: No Known Drug Allergies Allergy (Verified 08/03/22 11:07) Home Medications: Oxycodone HCl/Acetaminophen [Oxycodon-Acetaminophen 7.5-325] 1 each PO Q6HPRN PRN 06/17/17 [History] Topiramate [Topamax] 125 mg PO BID 12/10/18 [History] Sertraline HCl 50 mg PO BID 12/22/18 [History] Galcanezumab-Gnlm [Emgality Syringe] 120 mg SQ UD 02/10/20 [History] Hx Tetanus, Diphtheria Vaccination/Date Given: Yes Hx Influenza Vaccination/Date Given: No Hx Pneumococcal Vaccination/Date Given: Yes Travel Risk - International Travel Have you traveled outside of the country in past 3 weeks: No - Coronavirus Screening Are you exhibiting any of the following symptoms?: Yes Symptoms: Cough: New Onset, Shortness of Breath, Vomiting/Diarrhea Close contact with a COVID-19 positive Pt in past 14-21 Days: No - Vaccine Status Have you recieved a Covid-19 vaccination: No - Review of Systems Constitutional: No Fever, No Chills Eyes: No Symptoms Ears, Nose, & Throat: No Symptoms Respiratory: Cough, Dyspnea, Wheezing Cardiac: No Chest Pain, No Edema, No Syncope Abdominal/Gastrointestinal: No Abdominal Pain, No Nausea, No Vomiting, No Diarrhea Genitourinary Symptoms: No Dysuria Musculoskeletal: No Back Pain, No Neck Pain Skin: No Rash Neurological: No Dizziness, No Focal Weakness, No Sensory Changes Psychological: No Symptoms Endocrine: No Symptoms All Other Systems: Reviewed and Negative - Past Medical History Pertinent Past Medical History: Yes Neurological History: Migraines ENT History: No Pertinent History Cardiac History: No Pertinent History Respiratory History: Asthma, Sleep Apnea Endocrine Medical History: No Pertinent History Musculoskeletal History: No Pertinent History GI Medical History: Colitis, Diverticulitis, Gallbladder Disease History: No Pertinent History Psycho-Social History: Depression Female Reproductive Disorders: Endometriosis, Other Other Medical History: R TKA, prior history of R meniscus and 2 surgeries to repair that. Past internal TENS was placed and removed. - Past Surgical History Past Surgical History: Yes Neuro Surgical History: No Pertinent History Cardiac: No Pertinent History Respiratory: No Pertinent History Gastrointestinal: Appendectomy, Cholecystectomy Genitourinary: Other Musculoskeletal: Joint Replacement, Orthopedic Surgery Female Surgical History: Hysterectomy Other Surgical History: Stent for kidney stone 7 years ago. LEFT KNEE SURGERY. left wrist - carpal tunnel and tendon repair - Social History Smoking Status: Current every day smoker How long have you smoked: 23 years Exposure to second hand smoke: Yes Drug Use: none Patient Lives Alone: No - Female History Hx Now: No - Nursing Vital Signs Nursing Vital Signs: Initial Vital Signs Temperature 98.9 F 08/03/22 11:01 Pulse Rate 71 08/03/22 11:01 Respiratory Rate 24 08/03/22 11:01 Blood Pressure 129/68 08/03/22 11:01 O2 Sat by Pulse Oximetry 85 L 08/03/22 11:01 Pain Scale Pain Intensity 10 - Physical Exam General Appearance: moderate distress, alert Eye Exam: PERRL/EOMI Neck Exam: normal inspection, supple Respiratory Exam: respiratory distress, crackles/rales, wheezing Cardiovascular/Chest Exam: normal heart sounds, regular rate/rhythm Abdominal/Gastrointestinal Exam: soft, No tenderness, No distention, No mass Extremity Exam: non-tender, normal range of motion, normal inspection, no calf tenderness, no pedal edema Neurologic Exam: alert, oriented x 3, cooperative, plush cutter II-XII nml as tested, sensation nml, No motor deficits Skin Exam: normal color, warm, No dry SpO2 Interpretation: hypoxic, O2 applied SpO2: 85 O2 Delivery: Nasal Cannula (2 L) - Course Nursing assessment & vital signs reviewed: Yes EKG Interpreted by Me: RATE (73), Sinus Rhythm, NORMAL AXIS, NORMAL INTERVALS, NORMAL QRS, Non-specific ST Changes - CT Exams Chest CT Interpretation: Other (No PE, bilateral groundglass opacifications airway disease) Ordered Tests: Active Orders 24 hr Category Date Time Status Vp Ancillary STAT Care 08/03/22 11:20 Active EKG-ER Only STAT Care 08/03/22 11:19 Active IV Insertion STAT Care 08/03/22 11:19 Active Oxygen-ED Only Nasal Cannula 2 lpm Care 08/03/22 11:19 Active CHEST WITH CONTRAST [CT] Stat Exams 08/03/22 11:20 Completed CBC W DIFF Stat Lab 08/03/22 11:45 Completed CMP Stat Lab 08/03/22 11:45 Completed D-DIMER QUANTITATIVE Stat Lab 08/03/22 11:45 Completed Erythrocyte Sedimentation Rate Stat Lab 08/03/22 11:45 Completed Lactic Acid Stat Lab 08/03/22 12:05 Completed MAGNESIUM Stat Lab 08/03/22 11:45 Completed NT PRO BNPII Stat Lab 08/03/22 11:45 Completed PROTIME WITH INR Stat Lab 08/03/22 11:45 Completed PTT Stat Lab 08/03/22 11:45 Completed TROPONIN Q4H Lab 08/03/22 11:45 Completed TROPONIN Q4H Lab 08/03/22 15:30 Ordered TROPONIN Q4H Lab 08/03/22 19:30 Ordered UA W/RFX UR CULTURE Stat Lab 08/03/22 11:23 Ordered Urine Triage Profile Stat Lab 08/03/22 11:20 Ordered Medication Summary Generic Name Dose Route Start Last Admin Trade Name Freq PRN Reason Stop Dose Admin Sodium Chloride 1,000 mls @ 100 mls/hr 08/03/22 11:30 08/03/22 11:36 Sodium Chloride 0.9% 1000 Ml IV 09/02/22 11:29 100 mls/hr .Q10H ANA Administration Ceftriaxone Sodium/Dextrose 1 g in 50 mls @ 100 mls/hr 08/03/22 13:41 Rocephin 1 Gm-D5w 50 Ml Bag IV 08/03/22 14:10 STAT STA Azithromycin 500 mg in 250 mls @ 250 mls/hr 08/03/22 13:41 Zithromax 500 Mg/ 250 Ml Nacl Premix IV 08/03/22 14:40 STAT ONE Discontinued Medications Generic Name Dose Route Start Last Admin Trade Name Gilbertq PRN Reason Stop Dose Admin Hydrocodone Bitart/Acetaminophen 10 ml 08/03/22 11:29 08/03/22 11:37 Hydrocodone/Acetaminophen 5 Ml Udcup PO 08/03/22 11:30 10 ml STAT STA Administration Hydrocodone Bitart/Acetaminophen Confirm 08/03/22 11:32 Hydrocodone/Acetaminophen 5 Ml Udcup Administered 08/03/22 11:33 Dose 10 ml .ROUTE .STK-MED ONE Aspirin 324 mg 08/03/22 11:19 08/03/22 11:37 Aspirin 81 Mg Tab.Chew PO 08/03/22 11:20 324 mg STAT ONE Administration Aspirin 324 mg 08/03/22 11:22 08/03/22 11:37 Aspirin 81 Mg Tab.Chew PO 08/03/22 11:23 Not Given STAT ONE Aspirin Confirm 08/03/22 11:31 Aspirin 81 Mg Tab.Chew Administered 08/03/22 11:32 Dose 324 mg .ROUTE .STK-MED ONE Potassium Bicarbonate 25 meq 08/03/22 12:23 08/03/22 13:08 Potassium Bicarbonate 25 Meq Tab PO 08/03/22 12:24 25 meq STAT ONE Administration Potassium Bicarbonate Confirm 08/03/22 13:08 Potassium Bicarbonate 25 Meq Tab Administered 08/03/22 13:09 Dose 25 meq .ROUTE .STK-MED ONE Lab/Rad Data: Laboratory Result Diagrams 08/03/22 11:45 08/03/22 11:45 Laboratory Results 08/03/22 08/03/22 08/03/22 Range/Units 12:05 11:45 11:45 WBC (4.0-10.5) x10^3/uL RBC (4.1-5.4) x10^6/uL Hgb (12.0-16.0) g/dL Hct (35-47) % MCV (78-100) fL MCH (26-32) pg MCHC (32-36) g/dL RDW (11.5-14.0) % Plt Count (150-450) x10^3/uL MPV (7.5-11.0) fL Gran % (36.0-66.0) % Immature Gran % (Auto) (0.00-0.4) % Nucleat RBC Rel Count (0.00-0.1) % Eos # (Auto) (0-0.5) x10^3/uL Immature Gran # (Auto) (0.00-0.03) x10^3u/L Absolute Lymphs (auto) (1.0-4.6) x10^3/uL Absolute Monos (auto) (0.0-1.3) x10^3/uL Absolute Nucleated RBC (0.00-0.01) x10^3u/L Lymphocytes % (24.0-44.0) % Monocytes % (0.0-12.0) % Eosinophils % (0.00-5.0) % Basophils % (0.0-0.4) % Absolute Granulocytes (1.4-6.9) x10^3/uL Basophils # (0-0.4) x10^3/uL ESR (0-20) mm/hr PT (9.4-12.5) SECONDS INR (0.8-3.0) APTT (25.1-36.5) SECONDS D-Dimer (0.0-0.50) mg/L Sodium (137-145) mmol/L Potassium (3.5-5.1) mmol/L Chloride (98-107) mmol/L Carbon Dioxide (22-30) mmol/L Anion Gap (5-15) MEQ/L BUN (7-17) mg/dL Creatinine (0.52-1.04) mg/dL Estimated GFR ML/MIN Glucose (74-106) mg/dL Lactic Acid 0.9 (0.4-2.0) Calcium (8.4-10.2) mg/dL Magnesium (1.6-2.3) mg/dL Total Bilirubin (0.2-1.3) mg/dL AST (14-36) U/L ALT (0-35) U/L Alkaline Phosphatase (38-126) U/L Troponin I < 0.012 (0.000-0.034) ng/mL NT-Pro-B Natriuret Pep (<300) pg/mL Serum Total Protein (6.3-8.2) g/dL Albumin (3.5-5.0) g/dL Influenza Type A Ag NEGATIVE (NEGATIVE) Influenza Type B Ag NEGATIVE (NEGATIVE) RSV (PCR) NEGATIVE (NEGATIVE) SARS-CoV-2 (PCR) NEGATIVE (NEGATIVE) Group A Strep Antibody NOT DETECTED (NEGATIVE) 08/03/22 08/03/22 08/03/22 Range/Units 11:45 11:45 11:45 WBC (4.0-10.5) x10^3/uL RBC (4.1-5.4) x10^6/uL Hgb (12.0-16.0) g/dL Hct (35-47) % MCV (78-100) fL MCH (26-32) pg MCHC (32-36) g/dL RDW (11.5-14.0) % Plt Count (150-450) x10^3/uL MPV (7.5-11.0) fL Gran % (36.0-66.0) % Immature Gran % (Auto) (0.00-0.4) % Nucleat RBC Rel Count (0.00-0.1) % Eos # (Auto) (0-0.5) x10^3/uL Immature Gran # (Auto) (0.00-0.03) x10^3u/L Absolute Lymphs (auto) (1.0-4.6) x10^3/uL Absolute Monos (auto) (0.0-1.3) x10^3/uL Absolute Nucleated RBC (0.00-0.01) x10^3u/L Lymphocytes % (24.0-44.0) % Monocytes % (0.0-12.0) % Eosinophils % (0.00-5.0) % Basophils % (0.0-0.4) % Absolute Granulocytes (1.4-6.9) x10^3/uL Basophils # (0-0.4) x10^3/uL ESR 77 H (0-20) mm/hr PT 11.1 (9.4-12.5) SECONDS INR 1.02 (0.8-3.0) APTT 33.7 (25.1-36.5) SECONDS D-Dimer 1.59 H* (0.0-0.50) mg/L Sodium 140 (137-145) mmol/L Potassium 3.0 L* (3.5-5.1) mmol/L Chloride 112 H (98-107) mmol/L Carbon Dioxide 20 L (22-30) mmol/L Anion Gap 11.6 (5-15) MEQ/L BUN 13 (7-17) mg/dL Creatinine 0.44 L (0.52-1.04) mg/dL Estimated GFR > 60.0 ML/MIN Glucose 102 (74-106) mg/dL Lactic Acid (0.4-2.0) Calcium 8.6 (8.4-10.2) mg/dL Magnesium 1.8 (1.6-2.3) mg/dL Total Bilirubin 0.80 (0.2-1.3) mg/dL AST 27 (14-36) U/L ALT 24 (0-35) U/L Alkaline Phosphatase 187 H (38-126) U/L Troponin I (0.000-0.034) ng/mL NT-Pro-B Natriuret Pep 740 (<300) pg/mL Serum Total Protein 7.4 (6.3-8.2) g/dL Albumin 3.5 (3.5-5.0) g/dL Influenza Type A Ag (NEGATIVE) Influenza Type B Ag (NEGATIVE) RSV (PCR) (NEGATIVE) SARS-CoV-2 (PCR) (NEGATIVE) Group A Strep Antibody (NEGATIVE) 08/03/22 Range/Units 11:45 WBC 11.0 H (4.0-10.5) x10^3/uL RBC 3.10 L (4.1-5.4) x10^6/uL Hgb 9.8 L (12.0-16.0) g/dL Hct 29.9 L (35-47) % MCV 96.5 (78-100) fL MCH 31.6 (26-32) pg MCHC 32.8 (32-36) g/dL RDW 14.6 H (11.5-14.0) % Plt Count 294 (150-450) x10^3/uL MPV 9.4 (7.5-11.0) fL Gran % 80.6 H (36.0-66.0) % Immature Gran % (Auto) 0.5 H (0.00-0.4) % Nucleat RBC Rel Count 0.0 (0.00-0.1) % Eos # (Auto) 0.27 (0-0.5) x10^3/uL Immature Gran # (Auto) 0.05 H (0.00-0.03) x10^3u/L Absolute Lymphs (auto) 1.29 (1.0-4.6) x10^3/uL Absolute Monos (auto) 0.47 (0.0-1.3) x10^3/uL Absolute Nucleated RBC 0.00 (0.00-0.01) x10^3u/L Lymphocytes % 11.8 L (24.0-44.0) % Monocytes % 4.3 (0.0-12.0) % Eosinophils % 2.5 (0.00-5.0) % Basophils % 0.3 (0.0-0.4) % Absolute Granulocytes 8.86 H (1.4-6.9) x10^3/uL Basophils # 0.03 (0-0.4) x10^3/uL ESR (0-20) mm/hr PT (9.4-12.5) SECONDS INR (0.8-3.0) APTT (25.1-36.5) SECONDS D-Dimer (0.0-0.50) mg/L Sodium (137-145) mmol/L Potassium (3.5-5.1) mmol/L Chloride (98-107) mmol/L Carbon Dioxide (22-30) mmol/L Anion Gap (5-15) MEQ/L BUN (7-17) mg/dL Creatinine (0.52-1.04) mg/dL Estimated GFR ML/MIN Glucose (74-106) mg/dL Lactic Acid (0.4-2.0) Calcium (8.4-10.2) mg/dL Magnesium (1.6-2.3) mg/dL Total Bilirubin (0.2-1.3) mg/dL AST (14-36) U/L ALT (0-35) U/L Alkaline Phosphatase (38-126) U/L Troponin I (0.000-0.034) ng/mL NT-Pro-B Natriuret Pep (<300) pg/mL Serum Total Protein (6.3-8.2) g/dL Albumin (3.5-5.0) g/dL Influenza Type A Ag (NEGATIVE) Influenza Type B Ag (NEGATIVE) RSV (PCR) (NEGATIVE) SARS-CoV-2 (PCR) (NEGATIVE) Group A Strep Antibody (NEGATIVE) - Progress Progress: improved Air Movement: fair Blood Culture(s) Obtained: No Antibiotics given: Yes Discussed with : Ekta Will see patient in: hospital (full admit) Counseled pt/family regarding: lab results, diagnosis, rad results Medical Desision Making - Discussion of managment Care discussed with:: PCP Reviewed:: Test results Agreed on:: Treatment plan, decision to admit Will see patient: in hospital - Diagnostic Testing Diagnostic test were ordered, analyzed, and reviewed by me: Yes Radiological Interpretation: Reviewed by me - Risk of complications The pt has a mod risk of morbidity or mortality based on: Need for prescription drug management - Departure Departure Disposition: In-patient Admission Clinical Impression: Bilateral pneumonia Condition: Fair Critical Care Time: No Referrals: CHRIS GONZALEZ MD [Primary Care Provider] - Follow up/PCP as directed
[2022-08-03 12:00] LABS: Absolute Neutrophil Ct (ANC) 8.86 x10^3/uL (1.4-6.9); BASOPHIL % 0.3 % (0.0-0.4); Basophil (Absolute #) 0.03 x10^3/uL (0-0.4); Eosinophil % 2.5 % (0.00-5.0); Eosinophil (Absolute #) 0.27 x10^3/uL (0-0.5); Hematocrit 29.9 % (35-47); Hemoglobin 9.8 g/dL (12.0-16.0); IMMATURE GRAN # 0.05 x10^3u/L (0.00-0.03); IMMATURE GRAN % 0.5 % (0.00-0.4); Lymphocyte (Absolute #) 1.29 x10^3/uL (1.0-4.6); Lymphocytes % 11.8 % (24.0-44.0); Mean Cell Volume 96.5 fL (78-100); Mean Corpuscular Hemoglobin 31.6 pg (26-32); Mean Corpuscular Hgb Concent. 32.8 g/dL (32-36); Mean Platelet Volume 9.4 fL (7.5-11.0); Monocyte (Absolute #) 0.47 x10^3/uL (0.0-1.3); Monocytes % 4.3 % (0.0-12.0); Neutrophil % 80.6 % (36.0-66.0); Platelet Count 294 x10^3/uL (150-450); Red Cell Distribution Width 14.6 % (11.5-14.0)
[2022-08-03 12:19] LABS: ALBUMIN 3.5 g/dL (3.5-5.0); ALKALINE PHOSPHATASE 187 U/L (38-126); ANION GAP 11.6 MEQ/L (5-15); BLOOD UREA NITROGEN 13 mg/dL (7-17); CHLORIDE 112 mmol/L (98-107); Calcium 8.6 mg/dL (8.4-10.2); Carbon Dioxide 20 mmol/L (22-30); Creatinine 1 0.44 mg/dL (0.52-1.04); EST GLOMERULAR FILTRATION RATE > 60.0 ML/MIN; Glucose 102 mg/dL (74-106); INR 1.02 (0.8-3.0); MAGNESIUM 1.8 mg/dL (1.6-2.3); NT PRO BNPII 740 pg/mL (<300); PROTIME 11.1 SECONDS (9.4-12.5); PTT 33.7 SECONDS (25.1-36.5); SGOT/AST 27 U/L (14-36); SGPT/ALT 24 U/L (0-35); SODIUM 140 mmol/L (137-145); Total Protein 7.4 g/dL (6.3-8.2)
[2022-08-03 12:22] LABS: Group A Strep NOT DETECTED (NEGATIVE)
[2022-08-03] MEDS ORDERED: K-LYTE PO ONE (12:23)
[2022-08-03 12:25] LABS: D-DIMER QUANTITATIVE 1.59 mg/L (0.0-0.50)
[2022-08-03 12:35] LABS: INFLUENZA A NEGATIVE (NEGATIVE); INFLUENZA B NEGATIVE (NEGATIVE); RESPIRATORY SYNCTIAL VIRUS NEGATIVE (NEGATIVE); SARS-CoV-2 Xpert Express NEGATIVE (NEGATIVE)
--- NOTE | 2022-08-03 13:00 | XRAY ---
Indication: Hypoxia. Pleuritic chest pain. Multiple contiguous axial images obtained through the chest using 80 cc Isovue 370 contrast and PE protocol. Comparison: September 11, 2019 Good opacification of the pulmonary arteries. However mild respiration artifact limits evaluation of more distal lobar and segmental branches, especially lung bases. No obvious pulmonary embolus. Heart not enlarged. Aorta is normal in course and caliber. Stable small precarinal calcified node. No pathologic mediastinal/hilar lymphadenopathy. Lungs demonstrates new marked diffuse bilateral ground glass airspace disease without consolidation/effusion. Again incidental right upper lobe calcified granuloma. Bony thorax intact. Limited upper abdomen including adrenal glands are unremarkable. Impression: 1. Respiration artifact limits pulmonary embolus evaluation. No obvious pulmonary embolus. 2. New marked diffuse bilateral groundglass airspace disease. Rule out Covid 19 pneumonia. 3. Again incidental old granulomatous disease.
[2022-08-03] MEDS ORDERED: K-LYTE ONE (13:08)
[2022-08-03] MEDS ORDERED: ROCEPHIN 1 Gm-D5w 50 ml Bag** 1 G/50 ML IVPB IV STA (13:41)
[2022-08-03] MEDS ORDERED: Zithromax 500 MG/ 250 ML NaCl Premix 500 MG/250 ML IVPB IV ONE ×2 (13:41→13:59)
[2022-08-03] MEDS ORDERED: PROVENTIL 2.5 MG/3 ML NEB IH PRN (13:50)
[2022-08-03] MEDS ORDERED: ROCEPHIN 1 Gm-D5w 50 ml Bag** 1 G/50 ML IVPB IV ONE (13:52)
[2022-08-03] MEDS ORDERED: DUONEB 0.5-3 MG/3 ml Neb IH ONE (14:31)
[2022-08-03] MEDS: DUONEB 0.5-3 MG/3 ml Neb IH SCH ×2 (14:35→19:10)
[2022-08-03] MEDS ORDERED: [UNRECOGNIZED DRUG - OTHER] PO PRN (16:50)
[2022-08-03] MEDS ORDERED: OXYCODONE HCL PO PRN (16:50)
[2022-08-03] MEDS ORDERED: ACETAMINOPHEN PO PRN (16:50)
[2022-08-03] MEDS ORDERED: PERCOCET TABLET 5/325MG PO PRN ×2 (16:54→17:41)
[2022-08-03] MEDS ORDERED: GALCANEZUMAB GNLM 120 MG/ML SQ SCH (17:00)
[2022-08-03] MEDS ORDERED: MEDICATION INTERVENTION MC SCH (17:00)
[2022-08-03] MEDS: solu-MEDROL 80 MG, Sterile H2O 10 ml 2 ML IV SCH ×4 (17:33→23:00)
[2022-08-03] MEDS: TOPIRAMATE PO SCH (21:13)
[2022-08-03] MEDS: BUSPAR 5 MG PO SCH (21:14)
[2022-08-03] MEDS: Desyrel 150 MG PO SCH (21:16)
[2022-08-03 21:41] LABS: Appearance Clear (Clear); Bacteria None Seen /HPF (None Seen); Bilirubin Negative (Negative); Blood Negative (Negative); Epithelial Cells None Seen /HPF (None Seen); Glucose, Urine Negative (Negative); Hyaline Casts NONE SEEN /LPF (0-2); Ketones Trace (Negative); Leukocyte Esterase Negative (Negative); Nitrite Negative (Negative); Protein,Urine Dip Negative (Negative); WBC 0-2 /HPF (0-5)
[2022-08-03 21:46] LABS: ADD URINE CULTURE? NO (NO)
[2022-08-03 21:55] LABS: Amphetamine,Urine NEGATIVE (NEGATIVE); Barbiturate,Urine NEGATIVE (NEGATIVE); Benzodiazepine,Urine NEGATIVE (NEGATIVE); Cocaine,Urine NEGATIVE (NEGATIVE); Methadone,Urine NEGATIVE (NEGATIVE); Opiate,Urine POSITIVE (NEGATIVE); PCP,Urine NEGATIVE (NEGATIVE); THC,Urine NEGATIVE (NEGATIVE)
[2022-08-03] MEDS ORDERED: NON-FORMULARY ITEM (Buspirone Hcl [Buspirone Hcl] 30 MG Tablet) PO SCH (22:00)
[2022-08-03] MEDS ORDERED: TYLENOL EXTRA STRENGTH 500 MG PO PRN (23:37)
[2022-08-03] MEDS: PERCOCET TABLET 5/325MG PO PRN (23:48)
[2022-08-04] MEDS: DUONEB 0.5-3 MG/3 ml Neb IH SCH ×4 (01:58→19:17)
[2022-08-04] MEDS: PERCOCET TABLET 5/325MG PO PRN ×4 (04:26→19:06)
[2022-08-04] MEDS: solu-MEDROL 80 MG, Sterile H2O 10 ml 2 ML IV SCH ×8 (05:27→23:24)
[2022-08-04] MEDS: Sodium Chloride 0.9% 1000 ML 1,000 ML IV SCH ×2 (06:16→19:04)
[2022-08-04 08:27] LABS: Hemoglobin 9.8 g/dL (12.0-16.0); Mean Cell Volume 96.5 fL (78-100); Mean Corpuscular Hemoglobin 31.5 pg (26-32); Mean Corpuscular Hgb Concent. 32.7 g/dL (32-36); Mean Platelet Volume 9.5 fL (7.5-11.0); Platelet Count 287 x10^3/uL (150-450); Red Blood Count 3.11 x10^6/uL (4.1-5.4); Red Cell Distribution Width 14.2 % (11.5-14.0); White Blood Count 4.9 x10^3/uL (4.0-10.5)
[2022-08-04 08:37] LABS: ALBUMIN 3.4 g/dL (3.5-5.0); ALKALINE PHOSPHATASE 160 U/L (38-126); ANION GAP 12.6 MEQ/L (5-15); BLOOD UREA NITROGEN 17 mg/dL (7-17); CHLORIDE 115 mmol/L (98-107); Calcium 8.6 mg/dL (8.4-10.2); Carbon Dioxide 18 mmol/L (22-30); Creatinine 1 0.44 mg/dL (0.52-1.04); EST GLOMERULAR FILTRATION RATE > 60.0 ML/MIN; Glucose 143 mg/dL (74-106); Potassium 3.4 mmol/L (3.5-5.1); SGOT/AST 21 U/L (14-36); SGPT/ALT 20 U/L (0-35); SODIUM 142 mmol/L (137-145); Total Protein 7.3 g/dL (6.3-8.2)
[2022-08-04] MEDS ORDERED: TORAdol 30 mg Injection IV ONE (11:15)
[2022-08-04] MEDS: Cyclobenzaprine 10 MG PO SCH ×3 (11:40→23:24)
[2022-08-04] MEDS: TOPIRAMATE PO SCH ×2 (11:42→21:58)
[2022-08-04] MEDS: BUSPAR 5 MG PO SCH ×2 (11:42→21:58)
[2022-08-04] MEDS: ZOLOFT 50 MG TABLET PO SCH (11:42)
[2022-08-04] MEDS: Protonix 40MG Tablet PO SCH (11:42)
[2022-08-04] MEDS: ROCEPHIN 1 Gm-D5w 50 ml Bag** 1 G/50 ML IVPB IV SCH (11:44)
--- NOTE | 2022-08-04 11:46 | PCM.NOTE ---
Date and Time: 08/04/22 1143 Subjective Assessment: Patient in with bilateral pneumonia ground glass appearance with neg initial Covid testing in ER . D-dimer elevated -neg for PE. Start Lovenox and retest Covid OBJECTIVE DATA Vital Signs: Vital Signs - 24 hr Temp Pulse Resp BP Pulse Ox 08/04/22 05:33 56 L 20 98 08/04/22 04:00 97.2 F 58 L 20 142/66 98 08/03/22 23:55 98.9 F 77 18 100 08/03/22 20:00 100.0 F 81 19 131/73 98 08/03/22 19:10 77 20 96 08/03/22 14:44 98.2 F 72 21 136/80 94 L 08/03/22 14:34 98.2 F 72 21 136/80 94 L 08/03/22 14:18 98.2 F 72 21 136/80 94 L 08/03/22 13:53 76 18 86 L 08/03/22 13:49 85 L 08/03/22 13:10 73 37 H 94 L 08/03/22 13:00 74 33 H 131/83 98 08/03/22 12:50 78 24 98 08/03/22 12:45 75 30 H 96 Pain Assessment - Last Documented Pain Intensity 9 Pain Scale Used 0-10 Pain Scale Intake and Output: Intake & Output 08/01/22 08/02/22 08/03/22 08/04/22 11:59 11:59 11:59 11:59 Intake Total 2009 Output Total 1300 Balance 710 Weight 65.9 kg 66 kg Lab Results: Lab Results-Last 24 Hours 08/03/22 08/03/22 08/03/22 Range/Units 11:45 11:45 11:45 WBC 11.0 H (4.0-10.5) x10^3/uL RBC 3.10 L (4.1-5.4) x10^6/uL Hgb 9.8 L (12.0-16.0) g/dL Hct 29.9 L (35-47) % MCV 96.5 (78-100) fL MCH 31.6 (26-32) pg MCHC 32.8 (32-36) g/dL RDW 14.6 H (11.5-14.0) % Plt Count 294 (150-450) x10^3/uL MPV 9.4 (7.5-11.0) fL Gran % 80.6 H (36.0-66.0) % Immature Gran % (Auto) 0.5 H (0.00-0.4) % Nucleat RBC Rel Count 0.0 (0.00-0.1) % Eos # (Auto) 0.27 (0-0.5) x10^3/uL Immature Gran # (Auto) 0.05 H (0.00-0.03) x10^3u/L Absolute Lymphs (auto) 1.29 (1.0-4.6) x10^3/uL Absolute Monos (auto) 0.47 (0.0-1.3) x10^3/uL Absolute Nucleated RBC 0.00 (0.00-0.01) x10^3u/L Lymphocytes % 11.8 L (24.0-44.0) % Monocytes % 4.3 (0.0-12.0) % Eosinophils % 2.5 (0.00-5.0) % Basophils % 0.3 (0.0-0.4) % Absolute Granulocytes 8.86 H (1.4-6.9) x10^3/uL Basophils # 0.03 (0-0.4) x10^3/uL ESR (0-20) mm/hr PT 11.1 (9.4-12.5) SECONDS INR 1.02 (0.8-3.0) APTT 33.7 (25.1-36.5) SECONDS D-Dimer 1.59 H* (0.0-0.50) mg/L Sodium 140 (137-145) mmol/L Potassium 3.0 L* (3.5-5.1) mmol/L Chloride 112 H (98-107) mmol/L Carbon Dioxide 20 L (22-30) mmol/L Anion Gap 11.6 (5-15) MEQ/L BUN 13 (7-17) mg/dL Creatinine 0.44 L (0.52-1.04) mg/dL Estimated GFR > 60.0 ML/MIN Glucose 102 (74-106) mg/dL POC Glucometer (74 to 106) mg/dL Lactic Acid (0.4-2.0) Calcium 8.6 (8.4-10.2) mg/dL Magnesium 1.8 (1.6-2.3) mg/dL Total Bilirubin 0.80 (0.2-1.3) mg/dL AST 27 (14-36) U/L ALT 24 (0-35) U/L Alkaline Phosphatase 187 H (38-126) U/L Troponin I (0.000-0.034) ng/mL NT-Pro-B Natriuret Pep 740 (<300) pg/mL Serum Total Protein 7.4 (6.3-8.2) g/dL Albumin 3.5 (3.5-5.0) g/dL Urine Color (Yellow) Urine Appearance (Clear) Urine pH (4.6-8.0) Ur Specific [place] (1.005-1.030) Urine Protein (Negative) Urine Glucose (UA) (Negative) mg/dL Urine Ketones (Negative) Urine Blood (Negative) Urine Nitrite (Negative) Urine Bilirubin (Negative) Urine Urobilinogen (0.2) mg/dL Ur Leukocyte Esterase (Negative) U Hyaline Cast (Auto) (0-2) /LPF Urine Microscopic RBC (0-5) /HPF Urine Microscopic WBC (0-5) /HPF Ur Epithelial Cells (None Seen) /HPF Urine Bacteria (None Seen) /HPF Urine Culture Reflexed (NO) Urine Opiates Level (NEGATIVE) Ur Methadone (NEGATIVE) Urine Barbiturates (NEGATIVE) Ur Phencyclidine (PCP) (NEGATIVE) Urine Amphetamine (NEGATIVE) U Benzodiazepine Level (NEGATIVE) Urine Cocaine (NEGATIVE) Urine Marijuana (THC) (NEGATIVE) Influenza Type A Ag (NEGATIVE) Influenza Type B Ag (NEGATIVE) RSV (PCR) (NEGATIVE) SARS-CoV-2 (PCR) (NEGATIVE) Group A Strep Antibody (NEGATIVE) 08/03/22 08/03/22 08/03/22 Range/Units 11:45 11:45 11:45 WBC (4.0-10.5) x10^3/uL RBC (4.1-5.4) x10^6/uL Hgb (12.0-16.0) g/dL Hct (35-47) % MCV (78-100) fL MCH (26-32) pg MCHC (32-36) g/dL RDW (11.5-14.0) % Plt Count (150-450) x10^3/uL MPV (7.5-11.0) fL Gran % (36.0-66.0) % Immature Gran % (Auto) (0.00-0.4) % Nucleat RBC Rel Count (0.00-0.1) % Eos # (Auto) (0-0.5) x10^3/uL Immature Gran # (Auto) (0.00-0.03) x10^3u/L Absolute Lymphs (auto) (1.0-4.6) x10^3/uL Absolute Monos (auto) (0.0-1.3) x10^3/uL Absolute Nucleated RBC (0.00-0.01) x10^3u/L Lymphocytes % (24.0-44.0) % Monocytes % (0.0-12.0) % Eosinophils % (0.00-5.0) % Basophils % (0.0-0.4) % Absolute Granulocytes (1.4-6.9) x10^3/uL Basophils # (0-0.4) x10^3/uL ESR 77 H (0-20) mm/hr PT (9.4-12.5) SECONDS INR (0.8-3.0) APTT (25.1-36.5) SECONDS D-Dimer (0.0-0.50) mg/L Sodium (137-145) mmol/L Potassium (3.5-5.1) mmol/L Chloride (98-107) mmol/L Carbon Dioxide (22-30) mmol/L Anion Gap (5-15) MEQ/L BUN (7-17) mg/dL Creatinine (0.52-1.04) mg/dL Estimated GFR ML/MIN Glucose (74-106) mg/dL POC Glucometer (74 to 106) mg/dL Lactic Acid (0.4-2.0) Calcium (8.4-10.2) mg/dL Magnesium (1.6-2.3) mg/dL Total Bilirubin (0.2-1.3) mg/dL AST (14-36) U/L ALT (0-35) U/L Alkaline Phosphatase (38-126) U/L Troponin I < 0.012 (0.000-0.034) ng/mL NT-Pro-B Natriuret Pep (<300) pg/mL Serum Total Protein (6.3-8.2) g/dL Albumin (3.5-5.0) g/dL Urine Color (Yellow) Urine Appearance (Clear) Urine pH (4.6-8.0) Ur Specific [place] (1.005-1.030) Urine Protein (Negative) Urine Glucose (UA) (Negative) mg/dL Urine Ketones (Negative) Urine Blood (Negative) Urine Nitrite (Negative) Urine Bilirubin (Negative) Urine Urobilinogen (0.2) mg/dL Ur Leukocyte Esterase (Negative) U Hyaline Cast (Auto) (0-2) /LPF Urine Microscopic RBC (0-5) /HPF Urine Microscopic WBC (0-5) /HPF Ur Epithelial Cells (None Seen) /HPF Urine Bacteria (None Seen) /HPF Urine Culture Reflexed (NO) Urine Opiates Level (NEGATIVE) Ur Methadone (NEGATIVE) Urine Barbiturates (NEGATIVE) Ur Phencyclidine (PCP) (NEGATIVE) Urine Amphetamine (NEGATIVE) U Benzodiazepine Level (NEGATIVE) Urine Cocaine (NEGATIVE) Urine Marijuana (THC) (NEGATIVE) Influenza Type A Ag NEGATIVE (NEGATIVE) Influenza Type B Ag NEGATIVE (NEGATIVE) RSV (PCR) NEGATIVE (NEGATIVE) SARS-CoV-2 (PCR) NEGATIVE (NEGATIVE) Group A Strep Antibody NOT DETECTED (NEGATIVE) 08/03/22 08/03/22 08/03/22 Range/Units 12:05 15:30 19:18 WBC (4.0-10.5) x10^3/uL RBC (4.1-5.4) x10^6/uL Hgb (12.0-16.0) g/dL Hct (35-47) % MCV (78-100) fL MCH (26-32) pg MCHC (32-36) g/dL RDW (11.5-14.0) % Plt Count (150-450) x10^3/uL MPV (7.5-11.0) fL Gran % (36.0-66.0) % Immature Gran % (Auto) (0.00-0.4) % Nucleat RBC Rel Count (0.00-0.1) % Eos # (Auto) (0-0.5) x10^3/uL Immature Gran # (Auto) (0.00-0.03) x10^3u/L Absolute Lymphs (auto) (1.0-4.6) x10^3/uL Absolute Monos (auto) (0.0-1.3) x10^3/uL Absolute Nucleated RBC (0.00-0.01) x10^3u/L Lymphocytes % (24.0-44.0) % Monocytes % (0.0-12.0) % Eosinophils % (0.00-5.0) % Basophils % (0.0-0.4) % Absolute Granulocytes (1.4-6.9) x10^3/uL Basophils # (0-0.4) x10^3/uL ESR (0-20) mm/hr PT (9.4-12.5) SECONDS INR (0.8-3.0) APTT (25.1-36.5) SECONDS D-Dimer (0.0-0.50) mg/L Sodium (137-145) mmol/L Potassium (3.5-5.1) mmol/L Chloride (98-107) mmol/L Carbon Dioxide (22-30) mmol/L Anion Gap (5-15) MEQ/L BUN (7-17) mg/dL Creatinine (0.52-1.04) mg/dL Estimated GFR ML/MIN Glucose (74-106) mg/dL POC Glucometer (74 to 106) mg/dL Lactic Acid 0.9 (0.4-2.0) Calcium (8.4-10.2) mg/dL Magnesium (1.6-2.3) mg/dL Total Bilirubin (0.2-1.3) mg/dL AST (14-36) U/L ALT (0-35) U/L Alkaline Phosphatase (38-126) U/L Troponin I < 0.012 < 0.012 (0.000-0.034) ng/mL NT-Pro-B Natriuret Pep (<300) pg/mL Serum Total Protein (6.3-8.2) g/dL Albumin (3.5-5.0) g/dL Urine Color (Yellow) Urine Appearance (Clear) Urine pH (4.6-8.0) Ur Specific [place] (1.005-1.030) Urine Protein (Negative) Urine Glucose (UA) (Negative) mg/dL Urine Ketones (Negative) Urine Blood (Negative) Urine Nitrite (Negative) Urine Bilirubin (Negative) Urine Urobilinogen (0.2) mg/dL Ur Leukocyte Esterase (Negative) U Hyaline Cast (Auto) (0-2) /LPF Urine Microscopic RBC (0-5) /HPF Urine Microscopic WBC (0-5) /HPF Ur Epithelial Cells (None Seen) /HPF Urine Bacteria (None Seen) /HPF Urine Culture Reflexed (NO) Urine Opiates Level (NEGATIVE) Ur Methadone (NEGATIVE) Urine Barbiturates (NEGATIVE) Ur Phencyclidine (PCP) (NEGATIVE) Urine Amphetamine (NEGATIVE) U Benzodiazepine Level (NEGATIVE) Urine Cocaine (NEGATIVE) Urine Marijuana (THC) (NEGATIVE) Influenza Type A Ag (NEGATIVE) Influenza Type B Ag (NEGATIVE) RSV (PCR) (NEGATIVE) SARS-CoV-2 (PCR) (NEGATIVE) Group A Strep Antibody (NEGATIVE) 08/03/22 08/03/22 08/03/22 Range/Units 21:30 21:30 22:06 WBC (4.0-10.5) x10^3/uL RBC (4.1-5.4) x10^6/uL Hgb (12.0-16.0) g/dL Hct (35-47) % MCV (78-100) fL MCH (26-32) pg MCHC (32-36) g/dL RDW (11.5-14.0) % Plt Count (150-450) x10^3/uL MPV (7.5-11.0) fL Gran % (36.0-66.0) % Immature Gran % (Auto) (0.00-0.4) % Nucleat RBC Rel Count (0.00-0.1) % Eos # (Auto) (0-0.5) x10^3/uL Immature Gran # (Auto) (0.00-0.03) x10^3u/L Absolute Lymphs (auto) (1.0-4.6) x10^3/uL Absolute Monos (auto) (0.0-1.3) x10^3/uL Absolute Nucleated RBC (0.00-0.01) x10^3u/L Lymphocytes % (24.0-44.0) % Monocytes % (0.0-12.0) % Eosinophils % (0.00-5.0) % Basophils % (0.0-0.4) % Absolute Granulocytes (1.4-6.9) x10^3/uL Basophils # (0-0.4) x10^3/uL ESR (0-20) mm/hr PT (9.4-12.5) SECONDS INR (0.8-3.0) APTT (25.1-36.5) SECONDS D-Dimer (0.0-0.50) mg/L Sodium (137-145) mmol/L Potassium (3.5-5.1) mmol/L Chloride (98-107) mmol/L Carbon Dioxide (22-30) mmol/L Anion Gap (5-15) MEQ/L BUN (7-17) mg/dL Creatinine (0.52-1.04) mg/dL Estimated GFR ML/MIN Glucose (74-106) mg/dL POC Glucometer 142 H (74 to 106) mg/dL Lactic Acid (0.4-2.0) Calcium (8.4-10.2) mg/dL Magnesium (1.6-2.3) mg/dL Total Bilirubin (0.2-1.3) mg/dL AST (14-36) U/L ALT (0-35) U/L Alkaline Phosphatase (38-126) U/L Troponin I (0.000-0.034) ng/mL NT-Pro-B Natriuret Pep (<300) pg/mL Serum Total Protein (6.3-8.2) g/dL Albumin (3.5-5.0) g/dL Urine Color Yellow (Yellow) Urine Appearance Clear (Clear) Urine pH 7.0 (4.6-8.0) Ur Specific [place] 1.010 (1.005-1.030) Urine Protein Negative (Negative) Urine Glucose (UA) Negative (Negative) mg/dL Urine Ketones Trace A (Negative) Urine Blood Negative (Negative) Urine Nitrite Negative (Negative) Urine Bilirubin Negative (Negative) Urine Urobilinogen 1.0 A (0.2) mg/dL Ur Leukocyte Esterase Negative (Negative) U Hyaline Cast (Auto) NONE SEEN (0-2) /LPF Urine Microscopic RBC 3-5 (0-5) /HPF Urine Microscopic WBC 0-2 (0-5) /HPF Ur Epithelial Cells None Seen (None Seen) /HPF Urine Bacteria None Seen (None Seen) /HPF Urine Culture Reflexed NO (NO) Urine Opiates Level POSITIVE (NEGATIVE) Ur Methadone NEGATIVE (NEGATIVE) Urine Barbiturates NEGATIVE (NEGATIVE) Ur Phencyclidine (PCP) NEGATIVE (NEGATIVE) Urine Amphetamine NEGATIVE (NEGATIVE) U Benzodiazepine Level NEGATIVE (NEGATIVE) Urine Cocaine NEGATIVE (NEGATIVE) Urine Marijuana (THC) NEGATIVE (NEGATIVE) Influenza Type A Ag (NEGATIVE) Influenza Type B Ag (NEGATIVE) RSV (PCR) (NEGATIVE) SARS-CoV-2 (PCR) (NEGATIVE) Group A Strep Antibody (NEGATIVE) 08/04/22 08/04/22 Range/Units 08:26 08:26 WBC 4.9 (4.0-10.5) x10^3/uL RBC 3.11 L (4.1-5.4) x10^6/uL Hgb 9.8 L (12.0-16.0) g/dL Hct 30.0 L (35-47) % MCV 96.5 (78-100) fL MCH 31.5 (26-32) pg MCHC 32.7 (32-36) g/dL RDW 14.2 H (11.5-14.0) % Plt Count 287 (150-450) x10^3/uL MPV 9.5 (7.5-11.0) fL Gran % (36.0-66.0) % Immature Gran % (Auto) (0.00-0.4) % Nucleat RBC Rel Count (0.00-0.1) % Eos # (Auto) (0-0.5) x10^3/uL Immature Gran # (Auto) (0.00-0.03) x10^3u/L Absolute Lymphs (auto) (1.0-4.6) x10^3/uL Absolute Monos (auto) (0.0-1.3) x10^3/uL Absolute Nucleated RBC (0.00-0.01) x10^3u/L Lymphocytes % (24.0-44.0) % Monocytes % (0.0-12.0) % Eosinophils % (0.00-5.0) % Basophils % (0.0-0.4) % Absolute Granulocytes (1.4-6.9) x10^3/uL Basophils # (0-0.4) x10^3/uL ESR (0-20) mm/hr PT (9.4-12.5) SECONDS INR (0.8-3.0) APTT (25.1-36.5) SECONDS D-Dimer (0.0-0.50) mg/L Sodium 142 (137-145) mmol/L Potassium 3.4 L (3.5-5.1) mmol/L Chloride 115 H (98-107) mmol/L Carbon Dioxide 18 L (22-30) mmol/L Anion Gap 12.6 (5-15) MEQ/L BUN 17 (7-17) mg/dL Creatinine 0.44 L (0.52-1.04) mg/dL Estimated GFR > 60.0 ML/MIN Glucose 143 H (74-106) mg/dL POC Glucometer (74 to 106) mg/dL Lactic Acid (0.4-2.0) Calcium 8.6 (8.4-10.2) mg/dL Magnesium (1.6-2.3) mg/dL Total Bilirubin 0.50 (0.2-1.3) mg/dL AST 21 (14-36) U/L ALT 20 (0-35) U/L Alkaline Phosphatase 160 H (38-126) U/L Troponin I (0.000-0.034) ng/mL NT-Pro-B Natriuret Pep (<300) pg/mL Serum Total Protein 7.3 (6.3-8.2) g/dL Albumin 3.4 L (3.5-5.0) g/dL Urine Color (Yellow) Urine Appearance (Clear) Urine pH (4.6-8.0) Ur Specific [place] (1.005-1.030) Urine Protein (Negative) Urine Glucose (UA) (Negative) mg/dL Urine Ketones (Negative) Urine Blood (Negative) Urine Nitrite (Negative) Urine Bilirubin (Negative) Urine Urobilinogen (0.2) mg/dL Ur Leukocyte Esterase (Negative) U Hyaline Cast (Auto) (0-2) /LPF Urine Microscopic RBC (0-5) /HPF Urine Microscopic WBC (0-5) /HPF Ur Epithelial Cells (None Seen) /HPF Urine Bacteria (None Seen) /HPF Urine Culture Reflexed (NO) Urine Opiates Level (NEGATIVE) Ur Methadone (NEGATIVE) Urine Barbiturates (NEGATIVE) Ur Phencyclidine (PCP) (NEGATIVE) Urine Amphetamine (NEGATIVE) U Benzodiazepine Level (NEGATIVE) Urine Cocaine (NEGATIVE) Urine Marijuana (THC) (NEGATIVE) Influenza Type A Ag (NEGATIVE) Influenza Type B Ag (NEGATIVE) RSV (PCR) (NEGATIVE) SARS-CoV-2 (PCR) (NEGATIVE) Group A Strep Antibody (NEGATIVE) Radiology Exams: Radiology Procedures Category Date Time Status CHEST WITH CONTRAST [CT] Stat Exams 08/03/22 11:20 Completed Multi-Disciplinary Progress Notes: Multi-Disciplinary Progress Notes 08/04/22 01:58 Respiratory Note by Marlena Whitney Pt requested to not be woken up if sleeping for her scheduled 0100 neb tx. Pt sleeping at 0030 and 0200. Neb tx held at this time per pt request. Initialized on 08/04/22 01:58 - END OF NOTE
[2022-08-04] MEDS: Ativan 0.5 MG PO PRN ×2 (13:57→21:58)
[2022-08-04] MEDS: Zithromax 500 MG/ 250 ML NaCl Premix 500 MG/250 ML IVPB IV SCH (13:57)
[2022-08-04] MEDS: ENOXAPARIN SODIUM SQ SCH ×2 (13:58→21:58)
[2022-08-04 16:17] LABS: INFLUENZA A NEGATIVE (NEGATIVE); INFLUENZA B NEGATIVE (NEGATIVE); RESPIRATORY SYNCTIAL VIRUS NEGATIVE (NEGATIVE); SARS-CoV-2 Xpert Express NEGATIVE (NEGATIVE)
[2022-08-04] MEDS: Desyrel 150 MG PO SCH (21:58)
[2022-08-04] MEDS: OXYCODONE-ACETAMINOPHEN 10-325 PO PRN (23:29)
[2022-08-05] MEDS: DUONEB 0.5-3 MG/3 ml Neb IH SCH ×4 (04:16→18:22)
[2022-08-05] MEDS: solu-MEDROL 80 MG, Sterile H2O 10 ml 2 ML IV SCH ×2 (05:27)
[2022-08-05] MEDS: Cyclobenzaprine 10 MG PO SCH ×4 (05:29→23:28)
[2022-08-05] MEDS: Sodium Chloride 0.9% 1000 ML 1,000 ML IV SCH ×2 (05:32→14:30)
[2022-08-05] MEDS: OXYCODONE-ACETAMINOPHEN 10-325 PO PRN ×3 (09:32→19:49)
[2022-08-05] MEDS: Protonix 40MG Tablet PO SCH (10:37)
[2022-08-05] MEDS: BUSPAR 5 MG PO SCH ×2 (10:37→21:53)
[2022-08-05] MEDS: TOPIRAMATE PO SCH ×2 (10:37→21:53)
[2022-08-05] MEDS: ZOLOFT 50 MG TABLET PO SCH (10:38)
[2022-08-05] MEDS: ENOXAPARIN SODIUM SQ SCH ×2 (10:41→21:52)
[2022-08-05] MEDS: ROCEPHIN 1 Gm-D5w 50 ml Bag** 1 G/50 ML IVPB IV SCH (10:41)
[2022-08-05] MEDS: Zithromax 500 MG/ 250 ML NaCl Premix 500 MG/250 ML IVPB IV SCH (11:37)
[2022-08-05] MEDS: Ativan 0.5 MG PO PRN ×2 (12:47→21:58)
[2022-08-05] MEDS ORDERED: XYLOCAINE 1% HCL 20 ML MDV IJ PRN (13:51)
[2022-08-05] MEDS ORDERED: Rocephin 1000 MG INJ IM ONE (14:00)
[2022-08-05] MEDS: Nicoderm CQ 21 MG TOP SCH (14:38)
[2022-08-05] MEDS: IMODIUM 2 MG PO PRN (14:38)
--- NOTE | 2022-08-05 18:24 | PCM.NOTE ---
Date and Time: 08/05/221823 Subjective Assessment: Patient states still feeling sob even with O2 saturation 95% and is "afraid to go without it". IV infiltrated and no new access after many attempts. OBJECTIVE DATA Vital Signs: Vital Signs - 24 hr Temp Pulse Resp BP Pulse Ox 08/05/22 16:12 96.4 F 56 L 16 144/77 94 L 08/05/22 13:39 62 18 97 08/05/22 11:51 96.4 F 65 16 134/67 98 08/05/22 07:30 63 16 97 08/05/22 07:06 96.3 F 53 L 16 137/65 96 08/05/22 05:00 97 F 53 L 18 122/69 96 08/05/22 01:08 97.3 F 55 L 17 122/56 97 08/04/22 20:00 98.9 F 79 20 118/58 97 08/04/22 19:17 71 18 96 Pain Assessment - Last Documented Pain Intensity 7 Pain Scale Used 0-10 Pain Scale Intake and Output: Intake & Output 08/03/22 08/04/22 08/05/22 08/06/22 11:59 11:59 11:59 11:59 Intake Total 2009 1917 1729 Output Total 1300 300 Balance 710 1917 1430 Weight 65.9 kg 66.1 kg 66.2 kg Lab Results: Lab Results-Last 24 Hours 08/04/22 Range/Units 22:42 POC Glucometer 153 H (74 to 106) mg/dL
[2022-08-05] MEDS: DELTASONE 10 MG PO SCH (21:53)
[2022-08-05] MEDS: Desyrel 150 MG PO SCH (21:53)
[2022-08-06] MEDS: DUONEB 0.5-3 MG/3 ml Neb IH SCH ×4 (01:00→19:11)
[2022-08-06] MEDS: OXYCODONE-ACETAMINOPHEN 10-325 PO PRN ×4 (04:06→21:11)
[2022-08-06] MEDS: Cyclobenzaprine 10 MG PO SCH ×4 (05:29→23:08)
[2022-08-06] MEDS: TOPIRAMATE PO SCH ×2 (10:21→21:12)
[2022-08-06] MEDS: ZOLOFT 50 MG TABLET PO SCH (10:21)
[2022-08-06] MEDS: DELTASONE 10 MG PO SCH ×2 (10:21→21:12)
[2022-08-06] MEDS: BUSPAR 5 MG PO SCH ×2 (10:22→21:12)
[2022-08-06] MEDS: Zithromax 250 MG TABLET PO SCH (10:22)
[2022-08-06] MEDS: Protonix 40MG Tablet PO SCH (10:22)
[2022-08-06] MEDS: Rocephin 1000 MG INJ IM SCH (10:23)
[2022-08-06] MEDS: ENOXAPARIN SODIUM SQ SCH (10:23)
[2022-08-06 10:27] LABS: Absolute Neutrophil Ct (ANC) 4.07 x10^3/uL (1.4-6.9); BASOPHIL % 0.1 % (0.0-0.4); Basophil (Absolute #) 0.01 x10^3/uL (0-0.4); Eosinophil (Absolute #) 0.08 x10^3/uL (0-0.5); Hematocrit 31.9 % (35-47); Hemoglobin 10.3 g/dL (12.0-16.0); IMMATURE GRAN # 0.16 x10^3u/L (0.00-0.03); IMMATURE GRAN % 2.1 % (0.00-0.4); Lymphocyte (Absolute #) 2.52 x10^3/uL (1.0-4.6); Lymphocytes % 32.8 % (24.0-44.0); Mean Cell Volume 97.6 fL (78-100); Mean Corpuscular Hemoglobin 31.5 pg (26-32); Mean Corpuscular Hgb Concent. 32.3 g/dL (32-36); Mean Platelet Volume 9.3 fL (7.5-11.0); Monocyte (Absolute #) 0.85 x10^3/uL (0.0-1.3); Monocytes % 11.1 % (0.0-12.0); Neutrophil % 52.9 % (36.0-66.0); Platelet Count 325 x10^3/uL (150-450); Red Blood Count 3.27 x10^6/uL (4.1-5.4); White Blood Count 7.7 x10^3/uL (4.0-10.5)
[2022-08-06 10:37] LABS: BLOOD UREA NITROGEN 18 mg/dL (7-17); CHLORIDE 115 mmol/L (98-107); Calcium 8.4 mg/dL (8.4-10.2); Carbon Dioxide 17 mmol/L (22-30); Creatinine 1 0.64 mg/dL (0.52-1.04); EST GLOMERULAR FILTRATION RATE > 60.0 ML/MIN; Glucose 97 mg/dL (74-106); SODIUM 143 mmol/L (137-145)
[2022-08-06] MEDS: solu-MEDROL 80 MG, Sterile H2O 10 ml 2 ML IV SCH ×2 (10:39)
[2022-08-06 10:47] LABS: Potassium 2.7 mmol/L (3.5-5.1)
[2022-08-06] MEDS: Klor Con PO SCH ×4 (11:45→18:23)
--- NOTE | 2022-08-06 13:39 | PCM.NOTE ---
Date and Time: 08/06/22 1333 Subjective Assessment: Dyspnea improved. Patient reported shortness of breath with exertion (ambulation in room). Denies chest pain. The entirety of this encounter was performed via telemedicine. The patient consented to this telemedicine encounter. - Review of Systems Constitutional: Malaise Eyes: No Symptoms Ears, Nose, & Throat: No Symptoms Respiratory: Short Of Breath, Wheezing Cardiac: No Symptoms Abdominal/Gastrointestinal: No Symptoms Genitourinary Symptoms: No Symptoms Musculoskeletal: Arthralgias, Myalgias Skin: No Symptoms Neurological: No Symptoms Objective Exam Neurologic Exam: oriented x 3, cooperative, binding cutter II-XII nml as tested, normal mood/affect, nml cerebellar function, nml station & gait, sensation nml Skin Exam: normal color Eye Exam: PERRL, EOMI, eyes nml inspection Respiratory Exam: normal breath sounds, lungs clear Cardiovascular Exam: regular rate/rhythm, normal heart sounds Gastrointestinal/Abdomen Exam: soft, normal bowel sounds OBJECTIVE DATA Vital Signs: Vital Signs - 24 hr Temp Pulse Resp BP Pulse Ox 08/06/22 11:50 68 18 98 08/06/22 11:45 97.9 F 66 16 144/75 99 08/06/22 07:20 62 16 96 08/06/22 07:10 97.8 F 54 L 16 142/74 93 L 08/06/22 04:33 97.0 F 67 17 163/84 96 08/05/22 23:49 97.3 F 57 L 18 120/70 97 08/05/22 20:15 97.1 F 66 18 119/67 95 08/05/22 18:22 67 20 98 08/05/22 16:12 96.4 F 56 L 16 144/77 94 L 08/05/22 13:39 62 18 97 Pain Assessment - Last Documented Pain Intensity 7 Pain Scale Used 0-10 Pain Scale Intake and Output: Intake & Output 08/04/22 08/05/22 08/06/22 08/07/22 11:59 11:59 11:59 11:59 Intake Total 2009 1917 2149 Output Total 1300 1300 Balance 710 1918 850 Weight 66.1 kg 66.2 kg 66.3 kg Lab Results: Lab Results-Last 24 Hours 08/06/22 08/06/22 08/06/22 Range/Units 10:20 10:20 10:48 WBC 7.7 (4.0-10.5) x10^3/uL RBC 3.27 L (4.1-5.4) x10^6/uL Hgb 10.3 L (12.0-16.0) g/dL Hct 31.9 L (35-47) % MCV 97.6 (78-100) fL MCH 31.5 (26-32) pg MCHC 32.3 (32-36) g/dL RDW 14.0 (11.5-14.0) % Plt Count 325 (150-450) x10^3/uL MPV 9.3 (7.5-11.0) fL Gran % 52.9 (36.0-66.0) % Immature Gran % (Auto) 2.1 H (0.00-0.4) % Nucleat RBC Rel Count 0.0 (0.00-0.1) % Eos # (Auto) 0.08 (0-0.5) x10^3/uL Immature Gran # (Auto) 0.16 H (0.00-0.03) x10^3u/L Absolute Lymphs (auto) 2.52 (1.0-4.6) x10^3/uL Absolute Monos (auto) 0.85 (0.0-1.3) x10^3/uL Absolute Nucleated RBC 0.00 (0.00-0.01) x10^3u/L Lymphocytes % 32.8 (24.0-44.0) % Monocytes % 11.1 (0.0-12.0) % Eosinophils % 1.0 (0.00-5.0) % Basophils % 0.1 (0.0-0.4) % Absolute Granulocytes 4.07 (1.4-6.9) x10^3/uL Basophils # 0.01 (0-0.4) x10^3/uL Sodium 143 (137-145) mmol/L Potassium 2.7 L* (3.5-5.1) mmol/L Chloride 115 H (98-107) mmol/L Carbon Dioxide 17 L (22-30) mmol/L Anion Gap 14.0 (5-15) MEQ/L BUN 18 H (7-17) mg/dL Creatinine 0.64 (0.52-1.04) mg/dL Estimated GFR > 60.0 ML/MIN Glucose 97 (74-106) mg/dL Calcium 8.4 (8.4-10.2) mg/dL Magnesium 2.0 (1.6-2.3) mg/dL Assessment/Plan (1) Bilateral pneumonia Current Visit: Yes Status: Acute Assessment & Plan: Discussed case with Dr. Joe. Continue current regimen and add Advair. Will need to follow up with [facility] as outpatient Code(s): J18.9 - PNEUMONIA, UNSPECIFIED ORGANISM (2) Hypoxia Current Visit: Yes Status: Acute Assessment & Plan: D dimer elevated but CTA chest negative for PE. Discussed with Dr. Joe, who recommended decreasing Lovenox from therapeutic dosing to prophylactic dosing Code(s): R09.02 - HYPOXEMIA (3) Hypokalemia Current Visit: No Status: Acute Assessment & Plan: Replete and monitor Code(s): E87.6 - HYPOKALEMIA
[2022-08-06] MEDS: Nicoderm CQ 21 MG TOP SCH (14:02)
[2022-08-06] MEDS: Ativan 0.5 MG PO PRN (14:02)
--- NOTE | 2022-08-06 15:10 | CONS ---
CONSULT DATE: 08/06/2022 REASON FOR CONSULT: Evaluation of shortness of breath. HISTORY: Miss Gamboa is a 51-year-old smoker with history of obstructive airway disease who was in usual state of health about two days prior to admission. The patient reportedly had respiratory symptoms that progressively worsened. She was noted to have significant bronchospasm. Since admission she has been treated with antibiotics and steroids with significant clinical improvement. The patient has a positive D-dimer. CT chest was obtained that showed no large pulmonary embolism. The patient had diffuse infiltrate suggestive of possible infectious etiology which clinically appears to have improved. At the time of my evaluation, she is awake and able to carry out a conversation. She is not requiring any supplemental oxygen. PAST MEDICAL HISTORY: Positive for history of asthma/chronic obstructive pulmonary disease and sleep apnea. She has a history of colitis, depression. PAST SURGICAL HISTORY: Positive for right total knee replacement. PERSONAL AND SOCIAL HISTORY: The patient smokes half to three-fourths of a pack a day. MEDICATIONS: Medications reviewed. ALLERGIES: NKDA. PHYSICAL EXAMINATION: She is a middle aged woman who appears mildly short of breath but is able to carry out a conversation without shortness of breath. Vital signs noted. Saturating 96% on room air. HEENT: Normocephalic. Oral exam limited. CVS: First and second heart sounds are normal, regular, rhythmic. RESPIRATORY: Shows diminished breath sounds, occasional rhonchi are heard. ABDOMEN: Soft. EXTREMITIES: No edema is noted. LABORATORY DATA AND TESTS: Labs, x-rays, CT scan reviewed. ASSESSMENT: This is a 51-year-old woman admitted with: 1) Asthma/chronic obstructive pulmonary disease with acute exacerbation. 2) Acute bronchitis. 3) Hypoxemia, resolved. 4) Nicotine addiction. 5) Positive D-dimer with no large pulmonary embolism seen. RECOMMENDATIONS: 1) Continue present therapy. 2) Increase ambulation. 3) May discharge home on oral steroid with taper. 4) The patient will benefit from controller medication. I would recommend adding Advair 500/50 mg one inhalation b.i.d. 5) Consider venous Doppler for positive D-dimer. There is no obvious risk and the patient does not need outpatient anticoagulation upon discharge. 6) Advised to stop smoking. 7) Follow up in outpatient setting. PFT as outpatient. I will follow. Thank you for allowing me to participate in the care of your patient.
[2022-08-06] MEDS ORDERED: ADVAIR 500-50 DISKUS IH SCH (19:00)
[2022-08-06] MEDS: Advair Hfa 230/21 Mcg COMMON CANISTER IH SCH (19:11)
[2022-08-06] MEDS: Desyrel 150 MG PO SCH (21:13)
--- NOTE | 2022-08-06 22:25 | XRAY ---
CLINICAL HISTORY:Elevated D dimmer; COMPARISON:None; TECHNIQUES:Ultrasound examination of bilateral lower extremity veins was performed in real-time and duplex; FINDINGS: Normal phasic, non-pulsatile, and spontaneous flow is noted in bilateral common femoral, superficial femoral, popliteal, and posterior tibial veins. Visualized veins of both lower extremities demonstrate normal compressibility. No sonological evidence of acute deep vein thrombosis (DVT) is detected in the visualized veins of both lower extremities. IMPRESSION: No sonological evidence of acute DVT was detected in bilateral common femoral, superficial femoral, popliteal, and posterior tibial veins, at the time of examination. Electronically Signed by: Bladimir Anton MD. (08/06/2022 21:21:49 [employer])
[2022-08-07] MEDS: OXYCODONE-ACETAMINOPHEN 10-325 PO PRN ×5 (02:05→20:18)
[2022-08-07] MEDS: DUONEB 0.5-3 MG/3 ml Neb IH SCH ×4 (05:07→19:21)
[2022-08-07 05:35] LABS: ANION GAP 13.2 MEQ/L (5-15); BLOOD UREA NITROGEN 13 mg/dL (7-17); CHLORIDE 113 mmol/L (98-107); Calcium 8.7 mg/dL (8.4-10.2); Carbon Dioxide 20 mmol/L (22-30); Creatinine 1 0.51 mg/dL (0.52-1.04); EST GLOMERULAR FILTRATION RATE > 60.0 ML/MIN; Glucose 109 mg/dL (74-106); Potassium 4.1 mmol/L (3.5-5.1); SODIUM 142 mmol/L (137-145)
[2022-08-07] MEDS: Cyclobenzaprine 10 MG PO SCH ×4 (06:58→23:20)
[2022-08-07] MEDS ORDERED: DUONEB 0.5-3 MG/3 ml Neb IH ONE (07:06)
[2022-08-07] MEDS: Advair Hfa 230/21 Mcg COMMON CANISTER IH SCH ×2 (07:21→19:21)
[2022-08-07] MEDS: Ativan 0.5 MG PO PRN ×2 (08:30→20:18)
[2022-08-07] MEDS: ENOXAPARIN SODIUM SQ SCH (10:55)
[2022-08-07] MEDS: TOPIRAMATE PO SCH ×2 (10:55→21:20)
[2022-08-07] MEDS: BUSPAR 5 MG PO SCH ×2 (10:55→21:20)
[2022-08-07] MEDS: DELTASONE 10 MG PO SCH ×2 (10:55→21:20)
[2022-08-07] MEDS: ZOLOFT 50 MG TABLET PO SCH (10:55)
[2022-08-07] MEDS: Zithromax 250 MG TABLET PO SCH (10:55)
[2022-08-07] MEDS: Protonix 40MG Tablet PO SCH (10:55)
[2022-08-07] MEDS: Rocephin 1000 MG INJ IM SCH (10:56)
[2022-08-07] MEDS: Nicoderm CQ 21 MG TOP SCH (15:35)
--- NOTE | 2022-08-07 17:05 | PCM.NOTE ---
Date and Time: 08/07/22 170 Subjective Assessment: Dyspnea continues to slowly improve. No chest pain. Reviewed negative duplex US result with patient (no DVT). The entirety of this encounter was performed via telemedicine. The patient consented to this telemedicine encounter. - Review of Systems Constitutional: No Symptoms Eyes: No Symptoms Ears, Nose, & Throat: No Symptoms Respiratory: Cough, Short Of Breath Cardiac: No Symptoms Abdominal/Gastrointestinal: No Symptoms Genitourinary Symptoms: No Symptoms Musculoskeletal: No Symptoms Skin: No Symptoms Neurological: No Symptoms Psychological: No Symptoms Endocrine: No Symptoms Hematologic/Lymphatic: No Symptoms Immunological/Allergic: No Symptoms All Other Systems: Reviewed and Negative Objective Exam General Appearance: no apparent distress Neurologic Exam: alert, oriented x 3, cooperative, draw end hand II-XII nml as tested, normal mood/affect, nml cerebellar function Skin Exam: normal color Eye Exam: PERRL, EOMI, eyes nml inspection Neck Exam: normal inspection, non-tender, supple, full range of motion Respiratory Exam: normal breath sounds Cardiovascular Exam: regular rate/rhythm, normal heart sounds Gastrointestinal/Abdomen Exam: soft, normal bowel sounds Extremity Exam: normal inspection, normal range of motion OBJECTIVE DATA Vital Signs: Vital Signs - 24 hr Temp Pulse Resp BP Pulse Ox 08/07/22 16:10 95.9 F 62 18 118/67 98 08/07/22 13:40 81 14 95 08/07/22 12:43 97 F 69 18 126/76 98 08/07/22 07:59 68 18 95 08/07/22 07:56 96 F 52 L 18 146/82 98 08/07/22 05:00 96.1 F 63 16 125/77 95 08/06/22 23:39 96.6 F 66 17 100/56 92 L 08/06/22 19:21 96.7 F 67 17 104/61 90 L 08/06/22 19:15 64 16 95 Pain Assessment - Last Documented Pain Intensity 7 Pain Scale Used 0-10 Pain Scale Intake and Output: Intake & Output 08/05/22 08/06/22 08/07/22 08/08/22 11:59 11:59 11:59 11:59 Intake Total 1917 2150 540 140 Output Total 1300 400 Balance 1917 850 540 -260 Weight 66.2 kg 66.3 kg 66.3 kg Lab Results: Lab Results-Last 24 Hours 08/06/22 08/07/22 Range/Units 19:45 05:15 Sodium 142 (137-145) mmol/L Potassium 3.3 L 4.1 D (3.5-5.1) mmol/L Chloride 113 H (98-107) mmol/L Carbon Dioxide 20 L (22-30) mmol/L Anion Gap 13.2 (5-15) MEQ/L BUN 13 (7-17) mg/dL Creatinine 0.51 L (0.52-1.04) mg/dL Estimated GFR > 60.0 ML/MIN Glucose 109 H (74-106) mg/dL Calcium 8.7 (8.4-10.2) mg/dL Radiology Exams: Radiology Procedures Category Date Time Status VENOUS BILATERAL EXTREMITY [US] Urgent Exams 08/06/22 15:24 Completed Multi-Disciplinary Progress Notes: Multi-Disciplinary Progress Notes 08/07/22 15:41 Pharmacy Note by Robert John Saturday is day 6 of Rocephin and Zithromax. Initialized on 08/07/22 15:41 - END OF NOTE 08/07/22 12:40 Case Management Note by Corrine Yun S/W PATIENT- SHE CONTINUES TO DENY ANY NEW NEEDS AT TIME OF DC. Initialized on 08/07/22 12:40 - END OF NOTE 08/07/22 05:09 Respiratory Note by Ortiz Holley PT HAS BEEN REFUSING 0100 NEB TX FOR A FEW DAYS, I CHANGED THE ORDER TO TID, PT HAS A PRN NEB ORDER IF NEEDED. Initialized on 08/07/22 05:09 - END OF NOTE Assessment/Plan (1) Bilateral pneumonia Current Visit: Yes Status: Acute Assessment & Plan: Continue antibiotics. Improving. Dr. Pena following. Code(s): J18.9 - PNEUMONIA, UNSPECIFIED ORGANISM (2) Hypoxia Current Visit: Yes Status: Acute Assessment & Plan: Monitor oxygen requirement and wean as tolerated Code(s): R09.02 - HYPOXEMIA (3) Hypokalemia Current Visit: No Status: Acute Assessment & Plan: K repleted. Code(s): E87.6 - HYPOKALEMIA
[2022-08-07] MEDS: Desyrel 150 MG PO SCH (21:20)
[2022-08-08] MEDS: OXYCODONE-ACETAMINOPHEN 10-325 PO PRN ×4 (03:34→16:46)
[2022-08-08] MEDS: Cyclobenzaprine 10 MG PO SCH ×2 (05:29→12:25)
[2022-08-08] MEDS: DUONEB 0.5-3 MG/3 ml Neb IH SCH ×2 (06:54→13:30)
[2022-08-08] MEDS: Advair Hfa 230/21 Mcg COMMON CANISTER IH SCH (06:54)
[2022-08-08] MEDS: ENOXAPARIN SODIUM SQ SCH (10:26)
[2022-08-08] MEDS: BUSPAR 5 MG PO SCH (10:26)
[2022-08-08] MEDS: Ativan 0.5 MG PO PRN ×2 (10:28→16:46)
[2022-08-08] MEDS: DELTASONE 10 MG PO SCH (10:28)
[2022-08-08] MEDS: Zithromax 250 MG TABLET PO SCH (10:29)
[2022-08-08] MEDS: TOPIRAMATE PO SCH (10:31)
[2022-08-08] MEDS: Protonix 40MG Tablet PO SCH (10:31)
[2022-08-08] MEDS: ZOLOFT 50 MG TABLET PO SCH (10:32)
[2022-08-08] MEDS: Rocephin 1000 MG INJ IM SCH (12:25)
[2022-08-08] MEDS: Nicoderm CQ 21 MG TOP SCH (13:42)
[2022-08-08] MEDS: IMODIUM 2 MG PO PRN (13:42)
[2022-08-08 16:09] VITALS: BP 96/73; PULSE 90; O2SAT 96
--- NOTE | 2022-08-08 18:01 | PCM.DS ---
Discharge Summary Date of Admission: 08/03/22 14:18 Date of Discharge: 08/08/22 Admitting Physician: CHRIS GONZALEZ Consults: Consults on Case 08/05/22 18:24 Consult Pulmonology ROUTINE Primary Care Provider: CHRIS GONZALEZ Allergies Allergies No Known Drug Allergies Allergy (Verified 08/03/22 11:07) Hospital Summary - Hospital Course Hospital Course: Patient presented with acute hypoxic respiratory failure due to a bilateral pneumonia. She has been treated with antibiotics and significantly improved. She was evaluated by [facility] (Dr. Melton) and has been cleared for discharge. Init ially there was an elevated D Dimer and she was transiently anticoagulated with full dose lovenox; however, CTA and US duplex were negative for thrombosis. The patient will be discharged on oral antibiotics (cefdinir) and a prednisone taper. She will also receive a nicotine patch and has been advised to take a probiotic while she is on antibiotics. The patient was seen and examined via telemedicine. The entirety of this encounter was performed via telemedicine. [facility] - Vitals & Intake/Output Vital Signs: Vital Signs Temperature 97.8 F 08/08/22 16:00 Pulse Rate 90 08/08/22 16:00 Respiratory Rate 16 08/08/22 16:00 Blood Pressure 96/73 08/08/22 16:00 O2 Sat by Pulse Oximetry 96 08/08/22 16:00 Intake & Output: Intake & Output 08/06/22 08/07/22 08/08/22 08/09/22 11:59 11:59 11:59 11:59 Intake Total 2150 540 660 600 Output Total 1300 1400 Balance 850 540 -740 600 Weight 66.3 kg 66.3 kg 66.5 kg - Lab Result Diagrams: 08/06/22 10:20 08/07/22 05:15 - Procedures and Test Procedures and Tests throughout Hospitalization: Therapy Orders & Screens 08/03/22 13:50 Oxygen Nasal Cannula 2 lpm Comment: 08/03/22 13:53 Respiratory Therapy Consult ROUTINE Comment: Reason For Exam: 08/04/22 07:00 Respiratory Therapy Assessment DAILY Comment: Diagnosis: BILATERAL PNEUMONIA 08/06/22 13:28 Respiratory MDI BID Comment: Diagnosis: BILATERAL PNEUMONIA Discharge Exam General Appearance: no apparent distress, alert Neurologic Exam: alert, oriented x 3, cooperative, 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, normal mood/affect, nml cerebellar function Eye Exam: PERRL, EOMI, eyes nml inspection Ears, Nose, Throat Exam: normal ENT inspection Neck Exam: normal inspection Respiratory Exam: normal breath sounds, lungs clear Cardiovascular Exam: regular rate/rhythm, normal heart sounds Gastrointestinal/Abdomen Exam: soft, normal bowel sounds Pelvic Exam: deferred Rectal Exam: deferred Back Exam: normal inspection, normal range of motion Extremity Exam: normal inspection, normal range of motion Skin Exam: normal color Final Diagnosis/Problem List - Final Discharge Diagnosis/Problem (1) Bilateral pneumonia Current Visit: Yes Status: Acute Assessment & Plan: Improved. Code(s): J18.9 - PNEUMONIA, UNSPECIFIED ORGANISM (2) Hypoxia Current Visit: Yes Status: Acute Assessment & Plan: No longer hypoxic; off oxygen for >24 hours Code(s): R09.02 - HYPOXEMIA (3) Hypokalemia Current Visit: No Status: Acute Assessment & Plan: Repleted Code(s): E87.6 - HYPOKALEMIA - Discharge Disposition: Home, Self-Care Condition: Fair Prescriptions: New Lactobacillus Acidophilus [Acidophilus TABLET] 1 tab PO DAILY 5 Days #5 tablet Cefdinir 300 mg PO BID 5 Days #10 cap Prednisone 10 mg [Deltasone 10 mg] 10 mg PO UD #9 tablet Nicotine 21 mg [Nicoderm CQ 21 MG] 21 mg TOP DAILY 7 Days #7 patch Continue Oxycodone HCl/Acetaminophen [Oxycodon-Acetaminophen 7.5-325] 1 each PO Q6HPRN PRN PRN Reason: Pain Topiramate [Topamax] 100 mg PO BID Sertraline HCl 200 mg PO DAILY Galcanezumab-Gnlm [Emgality Syringe] 120 mg SQ UD Albuterol 2.5 mg/3 ml Neb [Proventil 2.5 mg/3 ml Neb] 2.5 mg IH Q6H PRN PRN PRN Reason: Shortness Of Breath Albuterol 8 gm Mdi Hfa [Ventolin Hfa MDI] 8 gm IH Q4H PRN PRN PRN Reason: Shortness Of Breath PANTOPRAZOLE 40 mg Tablet [Protonix 40MG Tablet] 40 mg PO DAILY Buspirone HCl 15 mg PO BID Trazodone HCl 150 mg PO HS Instructions: Pneumonia, Adult (DC) Follow up with: ZAIDA MELTON [ACTIVE STAFF] - 08/14/22 2:15 pm (AT [facility] ) CHRIS GONZALEZ MD [Primary Care Provider] - 08/16/22 11:00 am Forms: Discharge Instructions
--- NOTE | 2022-08-09 08:30 | PROG NOTE ---
Events noted. Chart reviewed. DATE: 08/08/2022 HISTORY: The patient was evaluated two days ago and has been hospitalized for obstructive airways disease with exacerbation reportedly had done well, feeling well and wishing to go home. PHYSICAL EXAMINATION: Vital signs reviewed. HEENT: Normocephalic. Oral exam unremarkable. CVS: First and second heart sounds normal, regular, rhythmic. RESPIRATORY: Shows diminished breath sounds. Clear to auscultation. ABDOMEN: Soft. EXTREMITIES: No edema is noted. LABORATORY DATA AND TESTS: Labs from 08/07/2022 reviewed. Lower extremity venous Doppler were negative. ASSESSMENT: This is a 51-year-old woman admitted with: 1) Obstructive airways disease with exacerbation clinically resolved. 2) Acute bronchitis. 3) Hypoxemia, resolved. 4) Positive D-dimer without evidence of deep vein thrombosis or pulmonary embolism. RECOMMENDATIONS: The patient is doing well from pulmonary standpoint. Advised to continue Advair, oral steroids with taper, continue bronchodilators, need for smoking cessation was discussed. Follow up in outpatient setting.
[2022-08-09 15:08] LABS: Result Negative (.)
[2022-08-09 15:16] LABS: Value 0.02 COI (.)
== END 2022-08-08 17:50 | disposition home or self-care (01) | DRG 195 ==
LOC: ED 10:59 → MED SURG 14:18 → UNDOADMIN 14:18
PROVIDERS: ADMIT Family Medicine; ATTEND Family Medicine
DX: J18.9 Pneumonia, unspecified organism (principal); R09.02 Hypoxemia; E87.6 Hypokalemia; J45.909 Unspecified asthma, uncomplicated; J44.9 Chronic obstructive pulmonary disease, unspecified; Z79.899 Other long term (current) drug therapy; Z20.828 Contact with and (suspected) exposure to other viral communicable diseases; Z72.0 Tobacco use
CPT/HCPCS: 0241U; 36000; 36415; 71260; 80048; 80053; 80307; 81001; 82947; 83605; 83735; 83880; 84132; 84484; 85025; 85027; 85379; 85610; 85652; 85730; 86769; 87651; 93005; 93041; 93970; 94640; 94760; 94762; 96365; 99285; J0456; J0696; J1650; J1885; J2930; J7609; Q3014; A9270-GY

== ENCOUNTER 2022-11-13 09:46 | Emergency (ER) | payer OTHER ==
[2022-11-13 10:06] VITALS: TEMP 98
[2022-11-13] MEDS ORDERED: Sodium Chloride 0.9% 1000 ML 1,000 ML IV STA (10:29)
[2022-11-13] MEDS ORDERED: MORPHINE SULFATE 4 MG INJ IV ONE ×2 (10:29→13:01)
[2022-11-13] MEDS ORDERED: Zofran 4 MG/2 ML VIAL IV ONE (10:29)
--- NOTE | 2022-11-13 10:47 | ERPHSYRPT ---
- History of Present Illness Time Seen by Provider: 11/13/22 10:30 Historian: patient Exam Limitations: no limitations Patient Subjective Stated Complaint: Abdominal pain Triage Nursing Assessment: Patient ambulated back to ED and transferred self to bed. Patient A+O X 3. Patient's skin pink, warm and dry. Patient complains of mid/lower abdominal pain that started three weeks ago that is getting worse. Patient states the past week she has been having N/V and diarrhea. Abdomen soft and round with BS X 4. Patient states she has a hx of ulcers and Nichols's esophagus and tried to get into her PCP and was told to come to ER. Physician History: Patient is a 51-year-old female with a history of Nichols's esophagus GERD and gastric ulcer presents to our ED for evaluation of abdominal pain that is primarily in the epigastrium. Patient reports her pain started 3 weeks ago however pain has gotten progressively worse. Pain significantly worsened 3 days ago. Patient called her primary care doctor who advised her to come to our ED. No trauma. No fever. Patient works at [employer] and denies injury. No associated chest pain or shortness of breath. Patient admits to nausea vomiting and diarrhea. No fever no rash. Symptoms are moderate in intensity. No specific worsening or improving factors. Patient voices no other complaints or concerns at this time. Portions of this note were created with voice recognition technology. There may be grammatical, spelling, punctuation or sound alike errors Timing/Duration: week(s) (3 weeks) Activities at Onset: none Quality: aching Abdominal Pain Onset Location: epigastric Pain Radiation: no radiation Severity of Pain-Max: moderate Severity of Pain-Current: mild Modifying Factors: Improves With: nothing Associated Symptoms: diarrhea, nausea, vomiting Previous symptoms: no prior history Allergies/Adverse Reactions: No Known Drug Allergies Allergy (Verified 11/13/22 09:57) Home Medications: Topiramate [Topamax] 100 mg PO BID 12/10/18 [History] Sertraline HCl 200 mg PO DAILY 12/22/18 [History] Galcanezumab-Gnlm [Emgality Syringe] 120 mg SQ UD 02/10/20 [History] Albuterol 2.5 mg/3 ml Neb [Proventil 2.5 mg/3 ml Neb] 2.5 mg IH Q6H PRN PRN 08/03/22 [History] Albuterol 8 gm Mdi Hfa [Ventolin Hfa MDI] 8 gm IH Q4H PRN PRN 08/03/22 [History] Buspirone HCl 15 mg PO BID 08/03/22 [History] PANTOPRAZOLE 40 mg Tablet [Protonix 40MG Tablet] 40 mg PO DAILY 08/03/22 [History] Hx Tetanus, Diphtheria Vaccination/Date Given: Yes Hx Influenza Vaccination/Date Given: No Hx Pneumococcal Vaccination/Date Given: No Immunizations Up to Date: Yes Travel Risk - International Travel Have you traveled outside of the country in past 3 weeks: No - Coronavirus Screening Are you exhibiting any of the following symptoms?: No Close contact with a COVID-19 positive Pt in past 14-21 Days: No - Vaccine Status Have you recieved a Covid-19 vaccination: No - Review of Systems Constitutional: No Symptoms, No Fever, No Chills Eyes: No Symptoms Ears, Nose, & Throat: No Symptoms Respiratory: No Symptoms, No Cough, No Dyspnea Cardiac: No Symptoms, No Chest Pain, No Edema, No Syncope Abdominal/Gastrointestinal: No Symptoms, No Abdominal Pain, No Nausea, No Vomiting, No Diarrhea Genitourinary Symptoms: No Symptoms, No Dysuria Musculoskeletal: No Symptoms, No Back Pain, No Neck Pain Skin: No Symptoms, No Rash Neurological: No Symptoms, No Dizziness, No Focal Weakness, No Sensory Changes Psychological: No Symptoms Endocrine: No Symptoms Hematologic/Lymphatic: No Symptoms Immunological/Allergic: No Symptoms All Other Systems: Reviewed and Negative - Past Medical History Pertinent Past Medical History: Yes Neurological History: Migraines ENT History: No Pertinent History Cardiac History: No Pertinent History Respiratory History: Asthma, Pneumonia Endocrine Medical History: No Pertinent History Musculoskeletal History: No Pertinent History GI Medical History: Colitis, Diverticulitis, Gallbladder Disease History: No Pertinent History Psycho-Social History: Depression Female Reproductive Disorders: Endometriosis, Other Other Medical History: R TK replacement, prior history of R meniscus and 2 surgeries to repair that. Past internal TENS was placed and removed. - Past Surgical History Past Surgical History: Yes Neuro Surgical History: No Pertinent History Cardiac: No Pertinent History Respiratory: No Pertinent History Gastrointestinal: Appendectomy, Cholecystectomy Genitourinary: Other Musculoskeletal: Joint Replacement, Orthopedic Surgery Female Surgical History: Hysterectomy Other Surgical History: Stent for kidney stone 7 years ago. - has been removed. LEFT KNEE SURGERY. left wrist - carpal tunnel and tendon repair - Social History Smoking Status: Current every day smoker How long have you smoked: 23 years Exposure to second hand smoke: Yes Drug Use: none Patient Lives Alone: No (lives with ) - Female History Hx Last Menstrual Period: hysterectomy Hx Now: No - Nursing Vital Signs Nursing Vital Signs: Initial Vital Signs Temperature 98.0 F 11/13/22 10:00 Pulse Rate 70 11/13/22 10:00 Respiratory Rate 17 11/13/22 10:00 Blood Pressure 125/61 11/13/22 10:00 O2 Sat by Pulse Oximetry 100 11/13/22 10:00 Pain Scale Pain Intensity 5 - Physical Exam General Appearance: no apparent distress, alert Eye Exam: PERRL/EOMI, eyes nml inspection Ears, Nose, Throat Exam: normal ENT inspection, pharynx normal, moist mucous membranes Neck Exam: normal inspection, non-tender, supple, full range of motion Respiratory Exam: normal breath sounds, lungs clear, airway intact, No respiratory distress Cardiovascular Exam: regular rate/rhythm, normal heart sounds, normal peripheral pulses Gastrointestinal/Abdomen Exam: soft, tenderness (Epigastric tenderness), No mass, No guarding, No pulsatile mass, No rebound Back Exam: normal inspection, normal range of motion, No CVA tenderness, No vertebral tenderness Extremity Exam: normal inspection, normal range of motion, pelvis stable Neurologic Exam: alert, oriented x 3, cooperative, normal mood/affect, sensation nml, No motor deficits Skin Exam: normal color, warm, dry Lymphatic Exam: No adenopathy SpO2 Interpretation: normal SpO2: 100 O2 Delivery: Room Air - Course Nursing assessment & vital signs reviewed: Yes - CT Exams Abdomen/Pelvis CT Interpretation: Tele-radiologist Report (Hepatomegaly nephrolithiasis otherwise negative CT abdomen pelvis) Ordered Tests: Active Orders 24 hr Category Date Time Status AMA [Release AMA] OM.NOW Care 11/13/22 15:34 Ordered IV Insertion STAT Care 11/13/22 10:29 Active ABDOMEN AND PELVIS W/0 CONTRAS [CT] Stat Exams 11/13/22 10:30 Completed CBC W DIFF Stat Lab 11/13/22 11:05 Completed CMP Stat Lab 11/13/22 11:05 Completed LIPASE Stat Lab 11/13/22 11:05 Completed TROPONIN Q4H Lab 11/13/22 11:05 Completed TROPONIN Q4H Lab 11/13/22 14:30 Completed TROPONIN Q4H Lab 11/13/22 18:30 Ordered UA W/RFX UR CULTURE Stat Lab 11/13/22 10:32 Completed Medication Summary Generic Name Dose Route Start Last Admin Trade Name Freq PRN Reason Stop Dose Admin Magnesium Sulfate/Dextrose 100 mls @ 100 mls/hr 11/13/22 13:00 11/13/22 14:08 Magnesium 1 Gm / 100 Ml D5w IV 11/13/22 14:59 100 mls/hr Q1H ANA Administration Discontinued Medications Generic Name Dose Route Start Last Admin Trade Name Freq PRN Reason Stop Dose Admin Sodium Chloride 1,000 mls @ 999 mls/hr 11/13/22 10:29 11/13/22 13:00 Sodium Chloride 0.9% 1000 Ml IV 11/13/22 11:29 Infused .Q1H1M STA Infusion Sodium Chloride Confirm 11/13/22 11:13 Sodium Chloride 0.9% 1000 Ml Administered 11/13/22 11:14 Dose 1,000 mls @ ud .ROUTE .STK-MED ONE Morphine Sulfate 4 mg 11/13/22 10:29 11/13/22 11:23 Morphine Sulfate 4 Mg/Ml Injection IV 11/13/22 10:30 4 mg STAT ONE Administration Morphine Sulfate Confirm 11/13/22 11:13 Morphine Sulfate 4 Mg/Ml Injection Administered 11/13/22 11:14 Dose 4 mg .ROUTE .STK-MED ONE Morphine Sulfate 4 mg 11/13/22 13:01 11/13/22 13:12 Morphine Sulfate 4 Mg/Ml Injection IV 11/13/22 13:02 4 mg STAT ONE Administration Morphine Sulfate Confirm 11/13/22 13:10 Morphine Sulfate 4 Mg/Ml Injection Administered 11/13/22 13:11 Dose 4 mg .ROUTE .STK-MED ONE Ondansetron HCl 4 mg 11/13/22 10:29 11/13/22 11:22 Ondansetron Hcl 4 Mg/2 Ml Vial IV 11/13/22 10:30 4 mg STAT ONE Administration Ondansetron HCl Confirm 11/13/22 11:13 Ondansetron Hcl 4 Mg/2 Ml Vial Administered 11/13/22 11:14 Dose 4 mg .ROUTE .STK-MED ONE Pantoprazole Sodium 40 mg 11/13/22 15:24 11/13/22 15:27 Pantoprazole 40 Mg Vial IV 11/13/22 15:25 40 mg STAT ONE Administration Pantoprazole Sodium Confirm 11/13/22 15:25 Pantoprazole 40 Mg Vial Administered 11/13/22 15:26 Dose 40 mg IV .STK-MED ONE Potassium Chloride 40 meq 11/13/22 15:23 11/13/22 15:27 Potassium Chloride Tab 10 Meq Tab PO 11/13/22 15:24 40 meq STAT ONE Administration Potassium Chloride Confirm 11/13/22 15:25 Potassium Chloride Tab 10 Meq Tab Administered 11/13/22 15:26 Dose 40 meq PO .STK-MED ONE Lab/Rad Data: Laboratory Result Diagrams 11/13/22 11:05 11/13/22 11:05 Laboratory Results 11/13/22 11/13/22 11/13/22 Range/Units 14:30 11:05 11:05 WBC (4.0-10.5) x10^3/uL RBC (4.1-5.4) x10^6/uL Hgb (12.0-16.0) g/dL Hct (35-47) % MCV (78-100) fL MCH (26-32) pg MCHC (32-36) g/dL RDW (11.5-14.0) % Plt Count (150-450) x10^3/uL MPV (7.5-11.0) fL Gran % (36.0-66.0) % Immature Gran % (Auto) (0.00-0.4) % Nucleat RBC Rel Count (0.00-0.1) % Eos # (Auto) (0-0.5) x10^3/uL Immature Gran # (Auto) (0.00-0.03) x10^3u/L Absolute Lymphs (auto) (1.0-4.6) x10^3/uL Absolute Monos (auto) (0.0-1.3) x10^3/uL Absolute Nucleated RBC (0.00-0.01) x10^3u/L Lymphocytes % (24.0-44.0) % Monocytes % (0.0-12.0) % Eosinophils % (0.00-5.0) % Basophils % (0.0-0.4) % Absolute Granulocytes (1.4-6.9) x10^3/uL Basophils # (0-0.4) x10^3/uL Sodium 144 (137-145) mmol/L Potassium 2.7 L* (3.5-5.1) mmol/L Chloride 118 H (98-107) mmol/L Carbon Dioxide 18 L (22-30) mmol/L Anion Gap 11.1 (5-15) MEQ/L BUN 8 (7-17) mg/dL Creatinine 0.46 L (0.52-1.04) mg/dL Estimated GFR > 60.0 ML/MIN Glucose 91 (74-106) mg/dL Calcium 8.5 (8.4-10.2) mg/dL Total Bilirubin 0.30 (0.2-1.3) mg/dL AST 17 (14-36) U/L ALT 13 (0-35) U/L Alkaline Phosphatase 149 H (38-126) U/L Troponin I < 0.012 < 0.012 (0.000-0.034) ng/mL Serum Total Protein 6.1 L (6.3-8.2) g/dL Albumin 3.2 L (3.5-5.0) g/dL Lipase 127 (23-300) U/L Urine Color (Yellow) Urine Appearance (Clear) Urine pH (4.6-8.0) Ur Specific [place] (1.005-1.030) Urine Protein (Negative) Urine Glucose (UA) (Negative) mg/dL Urine Ketones (Negative) Urine Blood (Negative) Urine Nitrite (Negative) Urine Bilirubin (Negative) Urine Urobilinogen (0.2) mg/dL Ur Leukocyte Esterase (Negative) U Hyaline Cast (Auto) (0-2) /LPF Urine Microscopic RBC (0-5) /HPF Urine Microscopic WBC (0-5) /HPF Ur Epithelial Cells (None Seen) /HPF Urine Bacteria (None Seen) /HPF Urine Culture Reflexed (NO) 11/13/22 11/13/22 Range/Units 11:05 10:32 WBC 7.1 (4.0-10.5) x10^3/uL RBC 3.44 L (4.1-5.4) x10^6/uL Hgb 11.4 L (12.0-16.0) g/dL Hct 35.9 (35-47) % MCV 104.4 H (78-100) fL MCH 33.1 H (26-32) pg MCHC 31.8 L (32-36) g/dL RDW 13.8 (11.5-14.0) % Plt Count 376 (150-450) x10^3/uL MPV 9.1 (7.5-11.0) fL Gran % 49.9 (36.0-66.0) % Immature Gran % (Auto) 0.6 H (0.00-0.4) % Nucleat RBC Rel Count 0.0 (0.00-0.1) % Eos # (Auto) 0.33 (0-0.5) x10^3/uL Immature Gran # (Auto) 0.04 H (0.00-0.03) x10^3u/L Absolute Lymphs (auto) 2.63 (1.0-4.6) x10^3/uL Absolute Monos (auto) 0.51 (0.0-1.3) x10^3/uL Absolute Nucleated RBC 0.00 (0.00-0.01) x10^3u/L Lymphocytes % 37.3 (24.0-44.0) % Monocytes % 7.2 (0.0-12.0) % Eosinophils % 4.7 (0.00-5.0) % Basophils % 0.3 (0.0-0.4) % Absolute Granulocytes 3.52 (1.4-6.9) x10^3/uL Basophils # 0.02 (0-0.4) x10^3/uL Sodium (137-145) mmol/L Potassium (3.5-5.1) mmol/L Chloride (98-107) mmol/L Carbon Dioxide (22-30) mmol/L Anion Gap (5-15) MEQ/L BUN (7-17) mg/dL Creatinine (0.52-1.04) mg/dL Estimated GFR ML/MIN Glucose (74-106) mg/dL Calcium (8.4-10.2) mg/dL Total Bilirubin (0.2-1.3) mg/dL AST (14-36) U/L ALT (0-35) U/L Alkaline Phosphatase (38-126) U/L Troponin I (0.000-0.034) ng/mL Serum Total Protein (6.3-8.2) g/dL Albumin (3.5-5.0) g/dL Lipase (23-300) U/L Urine Color Yellow (Yellow) Urine Appearance Turbid A (Clear) Urine pH 6.5 (4.6-8.0) Ur Specific [place] 1.020 (1.005-1.030) Urine Protein Trace A (Negative) Urine Glucose (UA) Negative (Negative) mg/dL Urine Ketones Negative (Negative) Urine Blood Negative (Negative) Urine Nitrite Negative (Negative) Urine Bilirubin Negative (Negative) Urine Urobilinogen 1.0 A (0.2) mg/dL Ur Leukocyte Esterase Negative (Negative) U Hyaline Cast (Auto) NONE SEEN (0-2) /LPF Urine Microscopic RBC 6-10 A (0-5) /HPF Urine Microscopic WBC 0-2 (0-5) /HPF Ur Epithelial Cells Few (None Seen) /HPF Urine Bacteria Rare A (None Seen) /HPF Urine Culture Reflexed NO (NO) - Progress Progress: improved Progress Note: Patient is a 51-year-old female presents to our ED for evaluation of abdominal pain x3 weeks. Work-up reveals a macrocytic anemia of 11.4. Hypokalemia at 2.7. Patient received magnesium replacement for the hypokalemia. Patient received 40 mEq orally. We had highly advised infusion of K rider to replace magnesium but patient refused. Patient states she has to go home due to other obligations. This hypokalemia is critically low. Patient will be discharged AGAINST MEDICAL ADVICE. CT abdomen pelvis reveals hepatomegaly and left nephrolithiasis. No obstructing uropathy observed. No acute pathology observed to explain patient's abdominal pain. It is likely and possible that pain may be coming from her existing stomach ulcer. However there is no bleeding. Pain may also be caused by her Nichols's esophagus. Patient will need to be scoped. Patient discharged AMA. She agrees to follow-up with her primary care doctor within 48 hours for reevaluation. Patient received a dose of pantoprazole at our ED prior to discharge. A prescription for the same was forwarded to patient's pharmacy. We intended to give patient [place] for home however her inspect report reveals significant prescriptions for narcotics and sedatives. We will hold off on prescribing additional narcotics/sedatives. Portions of this note were created with voice recognition technology. There may be grammatical, spelling, punctuation or sound alike errors Patient is of sound mind. Patient is appropriate to make informed and independent medical decisions. Patient understands that leaving AGAINST MEDICAL ADVICE can result in delayed diagnosis, increased risk of morbidity, mortality, short and long-term disability including . In spite of these risks, patient has decided to leave AGAINST MEDICAL ADVICE. Patient understands that s he may return to our ED at any point if she reconsiders. Patient agrees to follow-up with her primary care doctor within 48 hours for reevaluation. Patient voices no other complaints or concerns at this time. We will release patient AGAINST MEDICAL ADVICE per their request. Complexity of problem addressed is moderate acute complicated illness No critical care time Complex of data reviewed and analyzed is moderate. Test ordered test reviewed. Clinical correlation made between the laboratory findings imaging findings and history and physical examination. Plan of care established. However patient was noncompliant with the recommended treatment regimen. Patient stated that she had obligations for which she had to leave. Patient left AMA. Risk of complication and or risk morbidity/mortality of patient management is moderate. A prescription for pantoprazole was forwarded to patient's pharmacy. Patient agrees to follow-up with her primary care doctor within 48 hours for re evaluation. Patient understands that she will require an outpatient scope to reassess the etiology of her pain. Vital stable. Time spent to discharge patient is approximately 15 minutes. 11/13/22 15:34 Counseled pt/family regarding: lab results, diagnosis, need for follow-up, rad results - Departure Departure Disposition: Home Clinical Impression: Abdominal pain, Hypokalemia, Microscopic hematuria, Hepatomegaly, Nephrolithiasis, Nausea vomiting and diarrhea Condition: Stable Critical Care Time: No Referrals: CHRIS GONZALEZ MD [Primary Care Provider] - Follow up/PCP as directed Instructions: Severe Abdominal Pain, Adult (DC) Additional Instructions: Discharge/Care Plan VILMA ROSEN was seen on 11/13/22 in the Emergency Room. The patient was counseled regarding Diagnosis,Lab results, Imaging studies, need for follow up and when to return to the Emergency Room. Prescriptions given: Discharge Note I have spoken with the patient and/or caregivers. I have explained the patient's condition, diagnosis and treatment plan based on the information available to me at this time. I have answered the patient's and/or caregiver's questions and addressed any concerns. The patient and/or caregivers have as good understanding of the patient's diagnosis, condition and treatment plan as can be expected at this point. The vital signs have been stable. The patient's condition is stable and appropriate for discharge from the emergency department. The patient will pursue further outpatient evaluation with the primary care physician or other designated or consulting physician as outlined in the discharge instructions. The patient and/or caregivers are agreeable to this plan of care and follow-up instructions have been explained in detail. The patient and/or caregivers have received these instruction. The patient/and or caregivers are aware that any significant change in condition or worsening of symptoms should prompt an immediate return to this or the closest emergency department or call 911. Forms: Work/School Release Form Prescriptions: Hydrocodone/APAP 5/325 [[place] 5/325 mg] 1 each PO Q6H PRN PRN 3 Days #10 tablet MDD 4 PRN Reason: Pain PANTOPRAZOLE 40 mg Tablet [Protonix 40MG Tablet] 40 mg PO QPM 7 Days #7 tab
[2022-11-13 11:11] LABS: Absolute Neutrophil Ct (ANC) 3.52 x10^3/uL (1.4-6.9); BASOPHIL % 0.3 % (0.0-0.4); Basophil (Absolute #) 0.02 x10^3/uL (0-0.4); Eosinophil % 4.7 % (0.00-5.0); Eosinophil (Absolute #) 0.33 x10^3/uL (0-0.5); Hematocrit 35.9 % (35-47); Hemoglobin 11.4 g/dL (12.0-16.0); IMMATURE GRAN # 0.04 x10^3u/L (0.00-0.03); IMMATURE GRAN % 0.6 % (0.00-0.4); Lymphocyte (Absolute #) 2.63 x10^3/uL (1.0-4.6); Lymphocytes % 37.3 % (24.0-44.0); Mean Cell Volume 104.4 fL (78-100); Mean Corpuscular Hemoglobin 33.1 pg (26-32); Mean Corpuscular Hgb Concent. 31.8 g/dL (32-36); Mean Platelet Volume 9.1 fL (7.5-11.0); Monocyte (Absolute #) 0.51 x10^3/uL (0.0-1.3); Monocytes % 7.2 % (0.0-12.0); Neutrophil % 49.9 % (36.0-66.0); Platelet Count 376 x10^3/uL (150-450); Red Blood Count 3.44 x10^6/uL (4.1-5.4); Red Cell Distribution Width 13.8 % (11.5-14.0); White Blood Count 7.1 x10^3/uL (4.0-10.5)
[2022-11-13] MEDS ORDERED: Sodium Chloride 0.9% 1000 ML 1,000 ML ONE (11:13)
[2022-11-13] MEDS ORDERED: Zofran 4 MG/2 ML VIAL ONE (11:13)
[2022-11-13] MEDS ORDERED: MORPHINE SULFATE 4 MG INJ ONE ×2 (11:13→13:10)
[2022-11-13 11:18] LABS: ADD URINE CULTURE? NO (NO); Appearance Turbid (Clear); Bacteria Rare /HPF (None Seen); Bilirubin Negative (Negative); Blood Negative (Negative); Epithelial Cells Few /HPF (None Seen); Glucose, Urine Negative (Negative); Hyaline Casts NONE SEEN /LPF (0-2); Ketones Negative (Negative); Leukocyte Esterase Negative (Negative); Nitrite Negative (Negative); Ph 6.5 (4.6-8.0); Protein,Urine Dip Trace (Negative); WBC 0-2 /HPF (0-5)
[2022-11-13 11:39] LABS: ALBUMIN 3.2 g/dL (3.5-5.0); ALKALINE PHOSPHATASE 149 U/L (38-126); ANION GAP 11.1 MEQ/L (5-15); BLOOD UREA NITROGEN 8 mg/dL (7-17); CHLORIDE 118 mmol/L (98-107); Calcium 8.5 mg/dL (8.4-10.2); Carbon Dioxide 18 mmol/L (22-30); Creatinine 1 0.46 mg/dL (0.52-1.04); EST GLOMERULAR FILTRATION RATE > 60.0 ML/MIN; Glucose 91 mg/dL (74-106); LIPASE 127 U/L (23-300); SGOT/AST 17 U/L (14-36); SGPT/ALT 13 U/L (0-35); SODIUM 144 mmol/L (137-145); Total Protein 6.1 g/dL (6.3-8.2)
[2022-11-13 11:51] LABS: Potassium 2.7 mmol/L (3.5-5.1)
[2022-11-13] MEDS ORDERED: Magnesium 1 Gm / 100 Ml D5W*** 200 ML IV ONE (12:50)
[2022-11-13] MEDS: Magnesium 1 Gm / 100 Ml D5W*** 100 ML IV SCH ×2 (12:51→14:08)
--- NOTE | 2022-11-13 14:59 | XRAY ---
CLINICAL HISTORY:pain COMPARISON:None. TECHNIQUE:CT scan of the abdomen and pelvis was performed without IV contrast. No oral contrast. Coronal and sagittal reconstructive images were also obtained. FINDINGS: Scan through the lower chest reveals unremarkable lung bases and heart. Abdomen: The liver is enlarged and measures 18.5 cm. No focal or diffuse parenchymal abnormality. The gallbladder is surgically removed with metalic clips at its bed. The portal vein, intrahepatic biliary radicals and the bile ducts are normal. The spleen, pancreas, adrenal glands are unremarkable. The kidneys are unremarkable. They are normal in size and shape. No hydronephrosis. Small left renal lower calyceal stone noted 2mm. The ascending colon, the transverse colon, the descending colon, visualized small bowel loops are unremarkable. There is no evidence of significant enlargement of the mesenteric or retroperitoneal lymph nodes. Aortoiliac atherosclerotic mural calcifications noted. Pelvis: The urinary bladder is unremarkable. The rectosigmoid colon is unremarkable. The pelvic vasculature is unremarkable. No evidence of pelvic lymphadenopathy. No definite bony abnormalities could be depicted. IMPRESSION: 1. Hepatomegaly. 2. Small left renal stone. 3. Otherwise unremarkable CT study. Electronically Signed by: Bladimir Anton MD. (11/13/2022 13:57:47 SENIOR INSTRUCTOR)
[2022-11-13] MEDS ORDERED: Klor Con PO ONE ×2 (15:23→15:25)
[2022-11-13] MEDS ORDERED: PROTONIX 40 MG IV IV ONE ×2 (15:24→15:25)
[2022-11-13 15:33] VITALS: BP 113/68; PULSE 64; RESP 16
[2022-11-13 15:34] VITALS: O2SAT 100
== END 2022-11-13 15:38 | disposition left against medical advice (07) ==
LOC: ED 09:46
DX: N20.0 Calculus of kidney (principal); E87.6 Hypokalemia; R10.13 Epigastric pain; R31.29 Other microscopic hematuria; R16.0 Hepatomegaly, not elsewhere classified; R11.2 Nausea with vomiting, unspecified; R19.7 Diarrhea, unspecified; Z79.891 Long term (current) use of opiate analgesic; Z79.899 Other long term (current) drug therapy; Z28.310 Unvaccinated for COVID-19; Z72.0 Tobacco use; Z87.442 Personal history of urinary calculi
CPT/HCPCS: 36000; 36415; 74176; 80053; 81001; 83690; 84484; 85025; 96365; 96366; 96374; 96375; 96376; 99284; J2270; J2405; J3475; A9270-GY

== ENCOUNTER 2023-09-03 09:08 | Emergency (ER) | payer OTHER ==
[2023-09-03 09:31] VITALS: TEMP 97.5
[2023-09-03 10:35] VITALS: O2SAT 100
[2023-09-03 11:28] VITALS: RESP 12
--- NOTE | 2023-09-03 12:00 | ERPHSYRPT ---
- History of Present Illness Time Seen by Provider: 09/03/23 09:30 Source: patient Exam Limitations: no limitations Patient Subjective Stated Complaint: Overdose-accidently Triage Nursing Assessment: Patient Physician History: 52-year-old female presents emergency department as a referral for evaluation of somnolence. Patient took (2) 10 mg Valium in preparation for an MRI. Patient completed the study. Staff observed patient was somnolent. Patient responsive but groggy. Patient brought to our ED for observation. We contacted poison control they advised observation. No active intervention. Patient resting co mfortably protecting her airway no distress at bedside voices no other complaints or concerns at this time. Portions of this note were created with voice recognition technology. There may be grammatical, spelling, punctuation or sound alike errors Timing/Duration: today Severity: moderate Modifying Factors: Improves With: nothing Associated Symptoms: denies symptoms Allergies/Adverse Reactions: No Known Drug Allergies Allergy (Verified 09/03/23 09:10) Home Medications: Topiramate [Topamax] 100 mg PO BID 12/10/18 [History] Sertraline HCl 200 mg PO DAILY 12/22/18 [History] Galcanezumab-Gnlm [Emgality Syringe] 120 mg SQ UD 02/10/20 [History] Albuterol 2.5 mg/3 ml Neb [Proventil 2.5 mg/3 ml Neb] 2.5 mg IH Q6H PRN PRN 08/03/22 [History] Albuterol 8 gm Mdi Hfa [Ventolin Hfa MDI] 8 gm IH Q4H PRN PRN 08/03/22 [Hi story] Buspirone HCl 15 mg PO BID 08/03/22 [History] PANTOPRAZOLE 40 mg Tablet [Protonix 40MG Tablet] 40 mg PO DAILY 08/03/22 [History] Hx Tetanus, Diphtheria Vaccination/Date Given: Yes Hx Influenza Vaccination/Date Given: No Hx Pneumococcal Vaccination/Date Given: No Immunizations Up to Date: Yes Travel Risk - International Travel Have you traveled outside of the country in past 3 weeks: No - Emerging Infectious Disease Are you exhibiting symptoms associated with any current EIDs: No - Review of Systems Constitutional: No Symptoms, No Fever, No Chills Eyes: No Symptoms Ears, Nose, & Throat: No Symptoms Respiratory: No Symptoms, No Cough, No Dyspnea Cardiac: No Symptoms, No Chest Pain, No Edema, No Syncope Abdominal/Gastrointestinal: No Symptoms, No Abdominal Pain, No Nausea, No Vomiting, No Diarrhea Genitourinary Symptoms: No Symptoms, No Dysuria Musculoskeletal: No Symptoms, No Back Pain, No Neck Pain Skin: No Symptoms, No Rash Neurological: No Symptoms, No Dizziness, No Focal Weakness, No Sensory Changes Psychological: No Symptoms Endocrine: No Symptoms Hematologic/Lymphatic: No Symptoms Immunological/Allergic: No Symptoms All Other Systems: Reviewed and Negative - Past Medical History Pertinent Past Medical History: Yes Neurological History: Migraines ENT History: No Pertinent History Cardiac History: No Pertinent History Respiratory History: Asthma, Pneumonia Endocrine Medical History: No Pertinent History Musculoskeletal History: No Pertinent History GI Medical History: Colitis, Diverticulitis, Gallbladder Disease History: No Pertinent History Psycho-Social History: Depression Female Reproductive Disorders: Endometriosis, Other Other Medical History: R TK replacement, prior history of R meniscus and 2 surgeries to repair that. Past internal TENS was placed and removed. - Past Surgical History Past Surgical History: Yes Neuro Surgical History: No Pertinent History Cardiac: No Pertinent History Respiratory: No Pertinent History Gastrointestinal: Appendectomy, Cholecystectomy Genitourinary: Other Musculoskeletal: Joint Replacement, Orthopedic Surgery Female Surgical History: Hysterectomy Other Surgical History: Stent for kidney stone 7 years ago. - has been removed. LEFT KNEE SURGERY. left wrist - carpal tunnel and tendon repair - Female History Hx Last Menstrual Period: hysterctomy Hx Now: No - Social History Smoking Status: Former smoker How long have you smoked: 23 years Exposure to second hand smoke: No Drug Use: none Patient Lives Alone: No (lives with ) - Social Determinants of Health Will the patient participate in the screening: Yes Do you worry about a steady place to live?: No Do you have any problems with any of the following?: No known problems In the past 12 months,have you had to go without utilities?: No Transportation Issues: No Has anyone in your support network made you feel unsafe?: No Have you or anyone in your house had to go without enough: No - Nursing Vital Signs Nursing Vital Signs: Initial Vital Signs Temperature 97.5 F 09/03/23 09:26 Pulse Rate 98 H 09/03/23 09:26 Respiratory Rate 20 09/03/23 09:26 Blood Pressure 98/75 09/03/23 09:26 O2 Sat by Pulse Oximetry 96 09/03/23 09:26 Pain Scale Pain Intensity 0 - Physical Exam General Appearance: no apparent distress, alert Eye Exam: PERRL/EOMI, eyes nml inspection Ears, Nose, Throat Exam: normal ENT inspection, TMs normal, pharynx normal, moist mucous membranes Neck Exam: normal inspection, non-tender, supple, full range of motion Respiratory Exam: normal breath sounds, lungs clear, airway intact, No respiratory distress Cardiovascular Exam: regular rate/rhythm, normal heart sounds, normal peripheral pulses Gastrointestinal/Abdomen Exam: soft, normal bowel sounds, No tenderness, No mass Back Exam: normal inspection, normal range of motion, No CVA tenderness, No vertebral tenderness Extremity Exam: normal inspection, normal range of motion, pelvis stable Neurologic Exam: alert, oriented x 3, cooperative, normal mood/affect, sensation nml, No motor deficits Skin Exam: normal color, warm, dry, No rash Lymphatic Exam: No adenopathy SpO2 Interpretation: normal SpO2: 100 O2 Delivery: Room Air - Course Nursing assessment & vital signs reviewed: Yes Ordered Tests: Medication Summary Discontinued Medications Generic Name Dose Route Start Last Admin Trade Name Freq PRN Reason Stop Dose Admin Acetaminophen 975 mg 09/03/23 12:44 Acetaminophen 325 Mg Tablet PO 09/03/23 12:45 STAT ONE - Progress Progress: improved Progress Note: 52-year-old female presents to our ED for observation. Patient unintentionally overdosed on Valium. Patient is now awake alert conversant well-appearing. Patient ambulated to the restroom. Patient states she has had a headache but declined Tylenol. Patient now requesting discharge at bedside. He states he will continue to observe her at home. Vital stable. Repeat neuroexam within normal limits. They voiced no other complaints or concerns at this wes e. Portions of this note were created with voice recognition technology. There may be grammatical, spelling, punctuation or sound alike errors Complexity problem addressed is moderate acute complicated. No critical care time. Complex of data reviewed and analyzed is none. No specialized testing ordered. Diagnosis made based on history and physical exam. Risk of complication and or risk of morbidity/mortality patient management is low. Vital stable. Time spent to discharge patient approximately 20 minutes. Plan of care established for shared decision making. No social determinants of health present impede follow-up. Patient denies HI SI Portions of this note were created with voice recognition technology. There may be grammatical, spelling, punctuation or sound alike errors 09/03/23 12:46 Counseled pt/family regarding: diagnosis, need for follow-up - Departure Departure Disposition: Home Clinical Impression: Accidental overdose Condition: Stable Critical Care Time: No Referrals: CHRIS GONZALEZ MD [Primary Care Provider] - Follow up/PCP as directed Instructions: Accidental Overdose (DC) Additional Instructions: Discharge/Care Plan VILMA ROSEN was seen on 09/03/23 in the Emergency Room. The patient was counseled regarding Diagnosis,Lab results, Imaging studies, need for follow up and when to return to the Emergency Room. Prescriptions given: Discharge Note I have spoken with the patient and/or caregivers. I have explained the patient's condition, diagnosis and treatment plan based on the information available to me at this time. I have answered the patient's and/or caregiver's questions and addressed any concerns. The patient and/or caregivers have as good understanding of the patient's diagnosis, condition and treatment plan as can be expected at this point. The vital signs have been stable. The patient's condition is stable and appropriate for discharge from the emergency department. The patient will pursue further outpatient evaluation with the primary care physician or other designated or consulting physician as outlined in the discharge instructions. The patient and/or caregivers are agreeable to this plan of care and follow-up instructions have been explained in detail. The patient and/or caregivers have received these instruction. The patient/and or caregivers are aware that any significant change in condition or worsening of symptoms should prompt an immediate return to this or the closest emergency department or call 911.
[2023-09-03 12:22] VITALS: BP 102/71; PULSE 58
[2023-09-03] MEDS: TYLENOL 325 MG PO ONE (12:47)
== END 2023-09-03 12:49 | disposition home or self-care (01) ==
LOC: ED 09:08 → EDSTATUS 09:08 → ED 12:49
DX: T42.4X1A Poisoning by benzodiazepines, accidental (unintentional), initial encounter (principal); R40.0 Somnolence; Z79.899 Other long term (current) drug therapy
CPT/HCPCS: 36000; 99284

== ENCOUNTER 2024-02-05 15:32 | Emergency (ER) | payer OTHER ==
[2012-11-24 22:39] VITALS: BP 126/72
== END 2024-02-05 17:40 | disposition left against medical advice (07) ==
LOC: ED 15:32
DX: Z53.21 Procedure and treatment not carried out due to patient leaving prior to being seen by health care provider (principal)

== ENCOUNTER 2024-02-06 07:50 | Emergency (ER) | payer OTHER ==
--- NOTE | 2024-02-06 08:04 | ERPHSYRPT ---
- History of Present Illness Time Seen by Provider: 02/06/24 08:00 Source: patient Exam Limitations: no limitations Physician History: 53-year-old female with history of COPD, Nichols's esophagus presented in the ER with 2 weeks history of left hip pain without any fall or obvious trauma. Patient reports moderate to severe sharp pain, aggravated with movements/ambulation and partially relieved with resting and taking Tylenol. Patient reports lately her pain is getting worse. It is some radiation to the left groin area and tenderness in the hip.Reports her left hip giving away couple of times leading to fall. No numbness tingling or weakness of left lower extremities. No loss of bowel or bladder control. Denies any history of back pain. No redness or swelling of left lower extremity. No pain in the thigh or calf area. Allergies/Adverse Reactions: No Known Drug Allergies Allergy (Verified 02/06/24 07:58) Home Medications: Topiramate [Topamax] 100 mg PO BID 12/10/18 [History] Sertraline HCl 200 mg PO DAILY 12/22/18 [History] Galcanezumab-Gnlm [Emgality Syringe] 120 mg SQ UD 02/10/20 [History] Albuterol 2.5 mg/3 ml Neb [Proventil 2.5 mg/3 ml Neb] 2.5 mg IH Q6H PRN PRN 08/03/22 [History] Albuterol 8 gm Mdi Hfa [Ventolin Hfa MDI] 8 gm IH Q4H PRN PRN 08/03/22 [History] Buspirone HCl 15 mg PO BID 08/03/22 [History] Hx Tetanus, Diphtheria Vaccination/Date Given: Yes Hx Influenza Vaccination/Date Given: No Hx Pneumococcal Vaccination/Date Given: No Travel Risk - Emerging Infectious Disease Are you exhibiting symptoms associated with any current EIDs: No - Review of Systems Constitutional: No Symptoms Ears, Nose, & Throat: No Symptoms Respiratory: No Symptoms Cardiac: No Symptoms Abdominal/Gastrointestinal: No Symptoms Musculoskeletal: Fall, Joint Pain Skin: No Symptoms Neurological: No Symptoms Endocrine: No Symptoms Hematologic/Lymphatic: No Symptoms - Past Medical History Pertinent Past Medical History: Yes Neurological History: Migraines ENT History: No Pertinent History Cardiac History: No Pertinent History Respiratory History: Asthma, Pneumonia Endocrine Medical History: No Pertinent History Musculoskeletal History: No Pertinent History GI Medical History: Colitis, Diverticulitis, Gallbladder Disease History: No Pertinent History Psycho-Social History: Depression Female Reproductive Disorders: Endometriosis, Other Other Medical History: R TK replacement, prior history of R meniscus and 2 surgeries to repair that. Past internal TENS was placed and removed. - Past Surgical History Past Surgical History: Yes Neuro Surgical History: No Pertinent History Cardiac: No Pertinent History Respiratory: No Pertinent History Gastrointestinal: Appendectomy, Cholecystectomy Genitourinary: Other Musculoskeletal: Joint Replacement, Orthopedic Surgery Female Surgical History: Hysterectomy Other Surgical History: Stent for kidney stone 7 years ago. - has been removed. LEFT KNEE SURGERY. left wrist - carpal tunnel and tendon repair - Female History Hx Last Menstrual Period: hysterctomy - Social History Smoking Status: Former smoker How long have you smoked: 23 years Exposure to second hand smoke: No Drug Use: none Patient Lives Alone: No (lives with ) - Social Determinants of Health Will the patient participate in the screening: Yes Do you worry about a steady place to live?: No In the past 12 months,have you had to go without utilities?: No Transportation Issues: No Has anyone in your support network made you feel unsafe?: No Have you or anyone in your house had to go without enough: No - Nursing Vital Signs Nursing Vital Signs: Initial Vital Signs Temperature 98.9 F 02/06/24 07:55 Pulse Rate 88 02/06/24 07:55 Respiratory Rate 18 02/06/24 07:55 Blood Pressure 130/72 02/06/24 07:55 O2 Sat by Pulse Oximetry 100 02/06/24 07:55 Pain Scale Pain Intensity 10 - Physical Exam General Appearance: no apparent distress, alert Neck Exam: normal inspection, full range of motion Cardiovascular/Respiratory Exam: normal breath sounds, regular rate/rhythm Gastrointestinal/Abdominal Exam: non-tender, soft, no organomegaly Back Exam: normal inspection, normal range of motion Hips Exam: right: non-tender, left: bone tenderness, limited range of motion, pain, soft tissue tenderness, bilateral: normal inspection, no evidence of injury Legs Exam: bilateral leg: non-tender, normal inspection, normal range of motion, no evidence of injury Knees Exam: bilateral knee: non-tender, normal inspection, normal range of motion, no evidence of injury Neuro/Tendon Exam: normal sensation, normal motor functions, normal tendon functions Mental Status Exam: alert, oriented x 3, cooperative Skin Exam: normal color SpO2 Interpretation: normal SpO2: 95 O2 Delivery: Room Air Ordered Tests: Active Orders 24 hr Category Date Time Status HIP UNI (2V) INCL PEL IF DONE Stat Exams 02/06/24 08:01 Completed Medication Summary Discontinued Medications Generic Name Dose Route Start Last Admin Trade Name Leilani PRN Reason Stop Dose Admin Morphine Sulfate 4 mg 02/06/24 08:00 02/06/24 08:26 Morphine Sulfate 4 Mg/Ml Injection IM 02/06/24 08:01 4 mg STAT ONE Administration Morphine Sulfate Confirm 02/06/24 08:15 Morphine Sulfate 4 Mg/Ml Injection Administered 02/06/24 08:16 Dose 4 mg .ROUTE .STK-MED ONE Orphenadrine Citrate 60 mg 02/06/24 08:00 02/06/24 08:27 Orphenadrine Citrate 60 Mg/2 Ml Vial IM 02/06/24 08:01 60 mg STAT ONE Administration Orphenadrine Citrate Confirm 02/06/24 08:15 Orphenadrine Citrate 60 Mg/2 Ml Vial Administered 02/06/24 08:16 Dose 60 mg .ROUTE .STK-MED ONE - Progress Progress: improved, pain not gone completely Progress Note: 02/06/24 09:30 53-year-old is evaluated in the ER for hip pain without any fall or trauma. She has tenderness in the lateral side of the hip and some in the groin area. No obvious swelling. She is given symptomatic treatment with morphine and Norflex, on reevaluation she is feeling much better. X-rays are negative for any acute osseous findings. I believe patient has either bursitis versus muscle strain, I would treat her with steroids and recommended outpatient orthopedics follow-up. Discussed signs symptoms of worsening needing return to ER which she seems understanding. Stable for discharge. Counseled pt/family regarding: diagnosis, need for follow-up, rad results - Departure Departure Disposition: Home Clinical Impression: Hip pain, left Condition: Stable Critical Care Time: No Referrals: CHRIS GONZALEZ MD [Primary Care Provider] - Follow up with PCP 1 day RENE TINOCO MD [ACTIVE STAFF] - Follow up/PCP as directed (call for appointment ) Instructions: Hip Bursitis (DC) Additional Instructions: Take Tylenol as needed. Follow-up with orthopedic for reevaluation. Return to ER for intractable pain, swelling, difficulty ambulation etc. Prescriptions: Prednisone 20 mg [Deltasone 20 mg] 60 mg PO DAILY 5 Days #15 tablet
[2024-02-06 08:07] VITALS: PULSE 88; RESP 18; TEMP 98.9
[2024-02-06] MEDS ORDERED: Norflex 60 MG/2 ML ONE (08:15)
[2024-02-06] MEDS ORDERED: MORPHINE SULFATE 4 MG INJ ONE (08:15)
[2024-02-06] MEDS: MORPHINE SULFATE 4 MG INJ IM ONE (08:26)
[2024-02-06] MEDS: Norflex 60 MG/2 ML IM ONE (08:27)
--- NOTE | 2024-02-06 09:00 | XRAY ---
Indication: Pain 2 weeks. No known injury. Comparison: None AP pelvis and 2 view left hip demonstrates osteopenia and a few tiny gluteal calcified injection granulomas. No other bony, articular, or soft tissue abnormalities.
[2024-02-06 09:34] VITALS: O2SAT 95
[2024-02-06 09:40] VITALS: BP 127/93
== END 2024-02-06 09:40 | disposition home or self-care (01) ==
LOC: ED 07:50
DX: M25.552 Pain in left hip (principal)
CPT/HCPCS: 73502; 96372; 99283; 99284; J2270; J2360